=== PATIENT | male | born 1960 | race Caucasian/White ===

== ENCOUNTER 2016-09-07 02:05 | Inpatient (IN) | payer OTHER ==
[~2016-09-07] VITALS: Ht 180.3 cm; Wt 104.3 kg
[~2016-09-07 02:05] MED LIST: AZITHROMYCIN250 M1 PO; IBUPROFEN800 M1 PO; MEPRON750 MG/51 PO; PERCOCET 5-3251 EACH PO; TRAZODONE HCL100 M1 PO; VALIUM5 M2 PO; VIBRAMYCIN100 MG PO; ZOFRAN ODT4 M1 PO
--- NOTE | 2016-09-07 12:14 | Admission Core Measures ---
Admission Meds I reviewed the following Meds: Current Medications Sig/Dorita Start time Last Medication Dose Stop Time Status Admin Alvimopan 12 MG ONCE 09/07 0000 NR (Entereg) 09/07 2569 Acute Coronary Syndrome Inclusion Criteria ACS Diagnosis No Inpatient Core Measures LDL Reminder: If No, please order W/I first 24hr of stay Congestive Heart Failure Inclusion Criteria CHF Diagnosis No Cerebrovascular accident Inclusion Criteria CVA/TIA Diagnosis No Inpatient Core Measures Bedside Swallow Eval Reminder: If BSE failed, place ST order Antithrombotic Reminder: Order Antithrombotic Medication by end of day 2 Antithrombotic Reminder: Document Reason Antithrombotic Not ordered by end of day 2 AFIB/Flutter Reminder: If Present, add to problem list AFIB/Flutter Reminder: Order Anticoag Medication for pts with AFIB/Flutter Atherosclerosis Reminder: If Present, add to problem list LDL Reminder: If No, please order W/I first 24hr of stay PT Order Reminder: If No, please order Venous thromboembolism Inpatient Core Measures VTE Risk Factors: Age > 40, Surgery VTE Prophylaxis Ordered Inpt Mechanical ([facility]S) [facility] d/t No contraindications No VTE Pharm Prophylaxis d/t Active bleeding, Surgical contraindication Inclusion Criteria - Per Current guidelines, there needs to be overlap - treatment for the first 5 days of Warfarin therapy. - Parenteral Anticoagulation (IV or SC) needs to be - given along with Warfarin therapy. VTE Diagnosis No VTE Type NONE VTE Confirmed by (Test) NONE Problem List As ranked by this Provider includes Assessment & Plan 1. Status post laparoscopic colectomy HOME MEDS Home Med List Oxycodone HCl/Acetaminophen (Percocet 5-325 MG Tablet) 5 MG-325 MG TABLET 1 TAB PO PRN PAIN (Reported) Trazodone HCl 100 MG TABLET 1 TAB PO QHS SLEEP (Reported)
--- NOTE | 2016-09-07 12:58 | Operative Report ---
Operative/Inv Procedure Report Surgery Date: 09/07/16 Name of Procedure: Laparoscopic right colectomy Pre-Operative Diagnosis: Adenocarcinoma of the colon at the hepatic flexure Post-Operative Diagnosis: Adenocarcinoma of the colon at the hepatic flexure Estimated Blood Loss: 300 ml Surgeon/Sports Umpire: ABIGAIL MARTINEZ JR, DO Anesthesia: general endotracheal tube Monitors: Per routine Drains: None Specimens: Right colon with hepatic flexure Complications: None Condition: Good Operative Indication: This is a 55-year-old gentleman who was found to have a mass at the hepatic flexure on a screening colonoscopy Biopsies from the colonoscopy revealed the mass to be an adenocarcinoma, preoperative workup failed to demonstrate evidence of metastasis Operative/Procedure Note Note: Patient was taken into the OR. He was placed in supine position on the operating room table. He underwent induction of general anesthesia, placement of endotracheal tube, and placement of Cordero catheter. A bilateral tap block was performed by the anesthesia department. His left arm was tucked and then the abdomen was prepped and draped in usual fashion. We gained access to the abdominal cavity using Croft technique. Croft port was placed in the supraumbilical position. Once this port was placed 3 additional 5 mm ports were placed under direct visualization of the laparoscope: Suprapubic, left lower quadrant and left upper quadrant. The peritoneal cavity and liver were inspected and appeared normal. The patient was placed in slight Trendelenburg left side down and the greater omentum was swept over the transverse colon. Small bowel was swept away from the base of the mesentery and then the tattoo was observed at the hepatic flexure. A medial to lateral dissection was then performed. The cecum was grasped and elevated towards the anterior abdominal wall tenting the mesentery. I could see the ileocolic vessels as they passed over the duodenum. I incised the peritoneum just caudad to the vessels. Through this incision I bluntly created a window through which the duodenum was identified. Using blunt dissection the retroperitoneum attachments of the nasal colon to the duodenum were mobilized. At this point the vascular pedicle was well exposed. I skeletonized the vessel then individually ligated the vein and artery with the LigaSure. I continued a medial to lateral dissection sweeping the wispy retroperitoneal attachments away as I developed the plane between Gerota's fascia and the nasal colon. Once I reached the sidewall I began to take down the white line of Toldt. The appendix and cecum were pulled medially the white line of Toldt was taken down using the LigaSure. I continued to do this until I took down the hepatic flexure. The patient was then placed in reverse Trendelenburg. Some abnormal attachments between the edge of the liver and the omentum were taken down with electrocautery. The gallbladder was identified and appeared normal. The gastrocolic ligament was then divided with the LigaSure starting at the mid transverse colon and working back till I reached the hepatic flexure. Just as I finished doing this we noticed some pooling of blood in the retroperitoneum. I thoroughly inspected the retroperitoneum and after some time was able to identify the bleeding source. There was a bleeding side branch arterial from the mesentery which was controlled with LigaSure. We copiously irrigated the blood away and then also placed some Surgicel here. About 200 mL of blood were lost during this retroperitoneal exploration and we finally found and controlled bleeding. At this point the 12 mm port was lengthened to 5 cm and a wound protector was placed through. We were able to easily extract the colon including a portion of the terminal ileum through this wound protector. I chose my proximal site of transection on the terminal ileum. A blue loaded 80 mm RADHA stapler was used to divide the bowel. The intervening mesentery to the small bowel was divided using the LigaSure. I chose my distal site of transection and cleared the mesentery at the colon using the LigaSure. We made sure to be at least 5 cm from the distal edge of the tumor. Once again a blue loaded 80 mm RADHA stapler was used to divide the bowel. The specimen was removed from the table and opened on the back table. We had excellent vascular pedicle and an good distal margins on the tumor. At this point we created a tyfp-su-rdgi anastomosis. 2 small enterotomies were intentionally created by excising the corners of the staple lines. The RADHA 80 mm blue loaded stapler was chosen to create a common channel. One arm of the stapling device was placed on each limb of the bowel, the stapler was then closed and fired. We made sure to approximate the antimesenteric portions of the bowel and not the mesentery. The stapler was opened and removed and the lumen was inspected. The lumen was pink and the anastomosis appeared intact without any evidence of bleeding. The enterotomy edges were then approximated with Allis clamps and then closed with a TA 60 stapler. An anti-tension suture was placed in the crotch of the staple line with a 2-0 Vicryl suture. The bowel was reduced back into the abdominal cavity and the fascia at the extraction port was closed with running 0 PDS non- looped suture. We reinsufflated the abdomen. There was a small amount of residual irrigation and old blood. This was irrigated and aspirated away. The retroperitoneum was once again inspected for bleeding and there was no evidence of active bleeding so we decided to conclude the procedure. The 5 mm ports were removed under direct visualization of the laparoscope. The extraction incision was copiously irrigated with sterile water and then closed with skin mj. The 5 mm ports were closed with subcuticular 4-0 Vicryl and then skin glue. The abdomen was cleansed and dried and then a sterile island dressing was applied over the extraction incision. The patient tolerated the procedure with good rate good urine output and was taken to recovery area in good condition. At the end of this operational needle sponges and attention was workout for Findings: Tumor at the hepatic flexure Discharge Disposition: PACU CC: ASHLEE ALBA,AIDAN Man; YUSEF SCHROEDER MD
--- NOTE | 2016-09-07 14:34 | PN- General Surgery ---
Subjective Subjective: The patient was seen this afternoon postoperatively. He reports his pain is under adequate control and no other complaints the current time. He denies any nausea, chest pain, or difficulty breathing. Objective Vital Signs and I&Os Vital signs: Blood pressure 150/80, pulse 70, temperature 90.8, O2 saturation 96 % on 2 L via nasal cannula I's and O's: 3300 ML's in of lactated Ringer's/400 ML's out of urine via Cordero catheter/EBL 300 Physical Exam: Gen.: Alert and obvious distress Skin: Warm and dry Cardiac: S1-S2 regular Pulmonary: Bilateral breath sounds equal slightly decreased at bases Abdomen: Softly distended, appropriate incisional tenderness, bowel sounds sluggish. Port sites are clean, dry, and intact without signs of infection. Extremities: Bilateral lower extremities are warm without calf tenderness or significant edema. Assessment/Plan Assessment/Plan Assessment: 55-year-old male status post laparoscopic right colectomy. Postoperatively the patient is progressing as expected and his pain is under adequate control. Plan: Continue IV fluids as well as a clear liquid diet tonight Entereg 12 mg by mouth twice a day 2 doses of prophylactic postoperative antibiotics Continue current pain regiment with Dilaudid SAMPLE MAKER HAND and [id number] Tylenol Out of bed and ambulate Strict I's and O's GI and DVT prophylaxis Follow-up morning laboratory studies Total respiratory care for IST and when necessary nebs Resume all medications Core Measures/Miscellaneous Cordero Catheter Date In: 09/07/16 Still Needed? Yes Venous Thromboembolism VTE Risk Factors: Age > 40, Surgery VTE Contraindications: Active Bleeding VTE Prophylaxis Ordered Inpt Mechanical (ALPS/TEDS) No Pharm VTE Prophylaxis D/T: Surgical Contraindication VTE Diagnosis: No VTE Type: NONE VTE Confirmed by (Test): NONE Beta Kermit Is Beta Kermit a Home Med? No Antibiotics Is Patient on Antibiotics? Yes If Yes: prophylaxis
[2016-09-07 17:00] VITALS: BP 122/74
[2016-09-07 17:38] VITALS: BP 122/74
[2016-09-07 19:40] VITALS: BP 152/92
--- NOTE | 2016-09-07 19:42 | NUR ---
nsg note: refused iv tylenol; surgical pa aware; next shift rn notified
[2016-09-07 21:56] VITALS: BP 138/78
[2016-09-08] VITALS (7 sets, daily range): BP systolic 128–137; BP diastolic 64–86
--- NOTE | 2016-09-08 04:05 | NUR ---
LATE ENTRY FOR 09/07/16 0523 REPORTED TO SURGICAL PA Aureliano PT PASSING DARK RED BLOODY LIQUID/SOME CLOTS FROM RECTUM. VSS. WILL CONTINUE TO MONITOR.
[2016-09-08 09:16] LABS: ABSOLUTE BASOPHIL COUNT 0 /CUMM (0.0-0.2); ABSOLUTE EOSINOPHIL COUNT 0.1 /CUMM (0.0-0.7); ABSOLUTE GRANULOCYTE CT 5.3 /CUMM (1.4-6.5); ABSOLUTE LYMPH COUNT 1.3 /CUMM (1.2-3.4); ABSOLUTE MONOCYTE COUNT 0.8 /CUMM (0.10-0.60); BASOPHIL % 0.1 % (0.0-2.0); EOSINOPHIL % 1.1 % (0-5); HEMATOCRIT 33.5 % (42-52); MEAN CORPUSCULAR HGB 30.9 PG (27.0-31.0); MEAN CORPUSCULAR HGB CONC 34.8 G/DL (33.0-37.0); MEAN PLATELET VOLUME 7.7 FL (7.4-10.4); PLATELET COUNT 203 /CUMM (130-400); RBC DISTRIBUTION WIDTH 13.4 % (11.5-14.5); RED BLOOD CELL CT 3.76 /CUMM (4.70-6.10); WHITE BLOOD CELL COUNT 7.5 /CUMM (4.8-10.8)
--- NOTE | 2016-09-08 10:51 | PN- General Surgery ---
Surgical Brief Attending Note Brief Attending Note: Patient is postop day 1 from a laparoscopic right colon Had nausea and emesis overnight and passing some bloody stool per rectum AVSS Gen - NAD Abd- soft , ND, incisins CDI Pt hemodynamcally stable and Hgb is stable - possile anastomosis bleeding . repete H&H and hold anticoag OK to start clears Decrease IVF to 75 ml Pt seen with PA preset and plan discussed with LOVE
[2016-09-08 20:51] LABS: ABSOLUTE BASOPHIL COUNT 0 /CUMM (0.0-0.2); ABSOLUTE EOSINOPHIL COUNT 0.2 /CUMM (0.0-0.7); ABSOLUTE GRANULOCYTE CT 3.8 /CUMM (1.4-6.5); ABSOLUTE LYMPH COUNT 1.5 /CUMM (1.2-3.4); ABSOLUTE MONOCYTE COUNT 0.6 /CUMM (0.10-0.60); BASOPHIL % 0.3 % (0.0-2.0); EOSINOPHIL % 2.5 % (0-5); GRANULOCYTE % 62.1 % (42.2-75.2); HEMATOCRIT 30.5 % (42-52); MEAN CORPUSCULAR HGB 30.5 PG (27.0-31.0); MEAN CORPUSCULAR HGB CONC 34.2 G/DL (33.0-37.0); MEAN CORPUSCULAR VOLUME 89.1 FL (80.0-94.0); MEAN PLATELET VOLUME 7.2 FL (7.4-10.4); PLATELET COUNT 176 /CUMM (130-400); RBC DISTRIBUTION WIDTH 13.6 % (11.5-14.5); RED BLOOD CELL CT 3.43 /CUMM (4.70-6.10); WHITE BLOOD CELL COUNT 6.2 /CUMM (4.8-10.8)
[2016-09-08] MEDS ORDERED: PERCOCET 5-3251 EACH PO (23:19)
--- NOTE | 2016-09-08 23:19 | Surgical Discharge Summary ---
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 Home Who Do You Live With? Spouse Services at Home: None What is Your Primary Language? Lao Review of Systems: See H&P Hospital Course Course Attending Physician: ABIGAIL ROMERO JR, DO Primary Care Physician: ASHLEE ALBA,[facility] Course: Patient is a 55-year-old male with a history of COPD and asthma who was found to have a massive hepatic flexure on a screening colonoscopy. Biopsies from the colonoscopy revealed the mass to be an adenocarcinoma further preoperative workup failed to demonstrate evidence of metastasis. On 09/07/2016, patient presented to [facility] for scheduled laparoscopic right hemicolectomy. Patient tolerated the procedure well and was transferred to the general medical floor in stable condition. He was given Entereg and started on clear liquid diet immediately postop. He had one episode of emesis on postoperative day #0, which resolved. He also had some bloody bowel movements on postoperative day #0 , which also improved. Blood counts remained stable. As bowel function improved, diet was slowly advanced and patient was cleared for discharge. Complications: None Allergies: Coded Allergies: Penicillins (Intermediate, HIVES, RASH 04/18/16) Disposition Summary Disposition Principal Diagnosis: Adenocarcinoma of the colon Additional Diagnosis: History of asthma and COPD. Discharge Disposition: home or self care Discharge Instructions General Discharge Information Code Status: Full Code Patient's Diet: Giller as tolerated Patient's Activity: No strenuous activity or heavy lifting, pushing, or pulling. No driving while using narcotics. Follow-Up Instructions/Appts: Dry dressing change once daily to incision site. Follow-up with Dr. Romero at 10-14 days postop for staple removal. Please report any of the following signs and symptoms to Travis: Fever greater than 101, increasing abdominal pain, severe constipation or diarrhea, drainage from the wound, chest pain or shortness of breath. Medications at Discharge Discharge Medications: Continue taking these medications: Trazodone HCl (Trazodone HCl) 100 MG TABLET 1 Tablet ORAL TAKE AT BEDTIME Comments: Last Taken: 09/09/16 Time: 9:00 PM The following medications have been changed: Old: Oxycodone HCl/Acetaminophen (Percocet 5-325 MG Tablet) 5 MG-325 MG TABLET 1 Tablet ORAL as needed for PAIN New: Oxycodone HCl/Acetaminophen (Percocet 5-325 MG Tablet) 5 MG-325 MG TABLET 1-2 Tablet ORAL EVERY 4 HOURS NEEDED as needed for PAIN Qty = 30 Comments: Last Taken: 09/10/16 Time: 10:00 AM
--- NOTE | 2016-09-08 23:24 | Patient Discharge Instructions ---
Discharge Instructions General Discharge Information You were seen/treated for: Adenocarcinoma of the colon You had these procedures: Laparoscopic right hemicolectomy Watch for these problems: Fever greater than 101, increased abdominal pain, frequent bloody bowel movements, severe constipation or diarrhea, chest pain or shortness of breath. Call Surgeon to remove: Mclean (postop day 10-14) Do not soak the wound: Yes No bath, but you may shower: Yes Other wound care: May shower as desired. You may remove Band-Aids, but leave Steri-Strips in place if you have them. Dry dressing change to a larger incision site once daily. Diet Continue normal diet: Yes Activity Full Activity/No Limits: No Activity Self Limited: Yes Pounds, do NOT lift more than: 5 Other activity limits: No strenuous activity or heavy lifting, pushing, or pulling. No driving while using narcotics. Acute Coronary Syndrome Inclusion Criteria At DC or during hospital stay patient has or had the following: ACS DIAGNOSIS No Discharge Core Measures Meds if any: Prescribed or Continued at Discharge Meds if any: NOT Prescribed or Continued at Discharge Congestive Heart Failure Inclusion Criteria At DC or during hospital stay patient has or had the following: CHF DIAGNOSIS No Discharge Core Measures Meds if any: Prescribed or Continued at Discharge Meds if any: NOT Prescribed or Continued at Discharge Cerebrovascular accident Inclusion Criteria At DC or during hospital stay patient has or had the following: CVA/TIA Diagnosis No Discharge Core Measures Meds if any: Prescribed or Continued at Discharge Meds if any: NOT Prescribed or Continued at Discharge Venous thromboembolism Inclusion Criteria VTE Diagnosis No VTE Type NONE VTE Confirmed by (Test) NONE Discharge Core Measures - Per Current guidelines, there needs to be overlap - treatment for the first 5 days of Warfarin therapy. - If discharged on Warfarin prior to 5 days of - overlap therapy, the patient will need to be - assessed for post discharge needs including - *Post discharge parental anticoagulation - *Warfarin and/or parental anticoagulation education - *Follow up date to check INR post discharge At least 5 days overlap therapy as Inpatient No Meds if any: Prescribed or Continued at Discharge Note: Overlap Therapy is Warfarin and Anticoagulant Meds if any: NOT Prescribed or Continued at Discharge
[2016-09-09 04:18] VITALS: BP 140/76
[2016-09-09 08:05] VITALS: BP 134/38
--- NOTE | 2016-09-09 08:45 | PN- General Surgery ---
See Addendum Subjective Subjective: NAEO. Patient without new c/o. Pain at incision sites which is controlled with MATTRESS INSPECTOR. Tolerating clear liquid diet without n/v. States he passed flatus once or twice. Has had several bloody bowel movements since yesterday. Denies dizziness, lightheadedness, feeling like he's going to pass out. Denies CP/SOB. OOB and ambulating. Objective Vital Signs and I&Os Vital Signs Date Time Temp Pulse Resp B/P Pulse O2 O2 Flow FiO2 Ox Delivery Rate 09/09 0805 98.5 83 20 134/38 95 09/09 0418 98.7 80 20 140/76 94 09/08 2351 99.2 84 20 130/74 93 09/08 1601 98.7 82 21 128/84 93 Room Air 09/08 1200 98.3 80 20 137/64 96 Room Air Intake & Output 09/09 1600 09/09 0800 09/09 0000 09/08 1600 09/08 0800 09/08 0000 Intake Total 731 981 2433 1000 2010 Output Total 425 600 021 422 0044 Balance 295 180 465 550 860 Intake, IV 600 877 858 8744 1050 Intake, Oral 120 480 520 0 960 Number 3 0 Bowel Movements Output, 0 750 Emesis Output, Urine 425 600 850 450 400 Physical Exam: General: NAD, comfortable, A&Ox3 Chest: CTAB. RRR. Abdomen: soft, mildly distended. Appropriately TTP. Incisions intact. Midline incision intact with mj. No erythema, swelling, purulent drainage, signs of infection. +Bowel sounds x4 quadrants Ext: No calve swelling/TTP, neurovascularly intact bilateral lower extremities Current Medications: Current Medications Sig/Dorita Start time Last Medication Dose Route Stop Time Status Admin Acetaminophen 1,000 MG Q6H 09/07 2100 DC 09/08 IV 09/08 1501 1437 Alvimopan 12 MG BID 09/07 2200 AC 09/08 PO 2219 Heparin Sodium 5,000 UNIT Q8 09/08 0600 DC 09/08 (Porcine) SC 0524 Hydromorphone HCl 0.5 MG Q3P PRN 09/09 0800 AC IV Hydromorphone HCl 50 MG Q24H PRN 09/07 1445 DC Sodium Chloride 45 ML IV Ondansetron HCl 4 MG Q6P PRN 09/07 1445 AC 09/07 IV 2119 Oxycodone/ 1 TAB Q4P PRN 09/09 0800 AC Acetaminophen PO Oxycodone/ 2 TAB Q4P PRN 09/09 0800 AC Acetaminophen PO Pantoprazole Sodium 40 MG DAILY 09/08 1000 AC 09/08 IV 0902 Potassium Chloride 20 MEQ .[id number] 09/07 1445 DC 09/09 Dextrose/Sodium 1,000 ML IV 0538 Chloride Promethazine HCl 25 MG Q4P PRN 09/07 221 AC 09/07 IV 09/14 2213 224 Trazodone HCl 50 MG .STK-MED ONE 09/08 2117 DC PO 09/08 2118 Trazodone HCl 100 MG AT BEDTIME 09/07 2199 AC 09/08 PO 222 Results Last 48 Hours of Labs: Laboratory Tests 09/0910 2027 Chemistry Sodium Pending Potassium Pending Chloride Pending Carbon Dioxide Pending Anion Gap Pending BUN Pending Creatinine Pending BUN/Creatinine Ratio Pending Magnesium Pending Hematology CBC w Diff Pending NO MAN DIFF REQ WBC (4.8 - 10.8 /CUMM) Pending 6.2 RBC (4.70 - 6.10 /CUMM) Pending 3.43 L Hgb (14.0 - 18.0 G/DL) Pending 10.5 L Hct (42 - 52 %) Pending 30.5 L MCV (80.0 - 94.0 FL) Pending 89.1 MCH (27.0 - 31.0 PG) Pending 30.5 RDW (11.5 - 14.5 %) Pending 13.6 Plt Count (130 - 400 /CUMM) Pending 176 MPV (7.4 - 10.4 FL) Pending 7.2 L Gran % (42.2 - 75.2 %) 62.1 Lymphocytes % (20.5 - 51.1 %) 24.9 Monocytes % (1.7 - 9.3 %) 10.2 H Eosinophils % (0 - 5 %) 2.5 Basophils % (0.0 - 2.0 %) 0.3 Absolute Granulocytes (1.4 - 6.5 /CUMM) 3.8 Absolute Lymphocytes (1.2 - 3.4 /CUMM) 1.5 Absolute Monocytes (0.10 - 0.60 /CUMM) 0.6 Absolute Eosinophils (0.0 - 0.7 /CUMM) 0.2 Absolute Basophils (0.0 - 0.2 /CUMM) 0 PUBS MCHC (33.0 - 37.0 G/DL) Pending 34.2 01/ 0730 Chemistry Sodium (137 - 145 mmol/L) 138 Potassium (3.5 - 5.1 mmol/L) 4.0 Chloride (98 - 107 mmol/L) 103 Carbon Dioxide (22 - 30 mmol/L) 27 Anion Gap (5 - 16) 8 BUN (9 - 20 mg/dL) 13 Creatinine (0.7 - 1.2 mg/dL) 0.9 Estimated GFR (>60 ml/min) > 60 BUN/Creatinine Ratio (7 - 25 %) 14.4 Hematology CBC w Diff NO MAN DIFF REQ WBC (4.8 - 10.8 /CUMM) 7.5 RBC (4.70 - 6.10 /CUMM) 3.76 L Hgb (14.0 - 18.0 G/DL) 11.6 L Hct (42 - 52 %) 33.5 L MCV (80.0 - 94.0 FL) 89.0 MCH (27.0 - 31.0 PG) 30.9 RDW (11.5 - 14.5 %) 13.4 Plt Count (130 - 400 /CUMM) 203 MPV (7.4 - 10.4 FL) 7.7 Gran % (42.2 - 75.2 %) 71.0 Lymphocytes % (20.5 - 51.1 %) 17.3 L Monocytes % (1.7 - 9.3 %) 10.5 H Eosinophils % (0 - 5 %) 1.1 Basophils % (0.0 - 2.0 %) 0.1 Absolute Granulocytes (1.4 - 6.5 /CUMM) 5.3 Absolute Lymphocytes (1.2 - 3.4 /CUMM) 1.3 Absolute Monocytes (0.10 - 0.60 /CUMM) 0.8 H Absolute Eosinophils (0.0 - 0.7 /CUMM) 0.1 Absolute Basophils (0.0 - 0.2 /CUMM) 0 PUBS MCHC (33.0 - 37.0 G/DL) 34.8 Assessment/Plan Assessment/Plan 55yo M POD#2 s/p laparoscopic colectomy. AVSS, patient progressing. - DC MATTRESS INSPECTOR, start PO pain meds - PRN zofran - continue entereg until patient had large formed bm - DC IVF - abx complete - f/u a.m. labs - I/O's - SLIV - ?restart sc heparin - ALPS - will d/w attending Core Measures/Miscellaneous Cordero Catheter Date In: 09/07/16 Venous Thromboembolism VTE Risk Factors: Age > 40, Surgery VTE Contraindications: Active Bleeding VTE Prophylaxis Ordered Inpt Mechanical (ALPS/TEDS) No Pharm VTE Prophylaxis D/T: Surgical Contraindication VTE Diagnosis: No VTE Type: NONE VTE Confirmed by (Test): NONE Beta Kermit Is Beta Kermit a Home Med? No Antibiotics Is Patient on Antibiotics? No
[2016-09-09 10:24] LABS: ABSOLUTE BASOPHIL COUNT 0 /CUMM (0.0-0.2); ABSOLUTE EOSINOPHIL COUNT 0.1 /CUMM (0.0-0.7); ABSOLUTE MONOCYTE COUNT 0.5 /CUMM (0.10-0.60); BASOPHIL % 0.4 % (0.0-2.0); EOSINOPHIL % 2.2 % (0-5); HEMATOCRIT 31.7 % (42-52); MEAN CORPUSCULAR HGB 30.7 PG (27.0-31.0); MEAN CORPUSCULAR HGB CONC 34.1 G/DL (33.0-37.0); MEAN CORPUSCULAR VOLUME 89.9 FL (80.0-94.0); MEAN PLATELET VOLUME 7.6 FL (7.4-10.4); PLATELET COUNT 172 /CUMM (130-400); RED BLOOD CELL CT 3.53 /CUMM (4.70-6.10); WHITE BLOOD CELL COUNT 5.8 /CUMM (4.8-10.8)
[2016-09-09 12:00] VITALS: BP 128/74
[2016-09-09 15:49] VITALS: BP 134/72
[2016-09-09 23:52] VITALS: BP 126/74
[2016-09-10 03:15] VITALS: BP 130/80
--- NOTE | 2016-09-10 07:02 | PN- General Surgery ---
Subjective Subjective: The patient was seen this morning postoperatively day #3. He reports that his pain is under adequate control and is tolerating a regular diet without nausea. He continues to have loose bowel movements which are now dark in color as opposed to grossly bloody the day prior. He has no other complaints at the current time and denies any chest pain or difficulty breathing. Objective Vital Signs and I&Os Vital Signs Date Time Temp Pulse Resp B/P Pulse O2 O2 Flow FiO2 Ox Delivery Rate 09/10 0315 98.4 78 18 130/80 94 Room Air 09/09 2352 98.3 72 19 126/74 94 Room Air 09/09 1549 98.2 80 21 134/72 94 Room Air 09/09 1200 98.0 84 20 128/74 92 Room Air 09/09 0805 98.5 83 20 134/38 95 Intake & Output 09/10 0800 09/10 0000 09/09 1600 09/09 0800 09/09 0000 09/08 1600 Intake Total 480 670 165 237 3404 Output Total 425 600 850 Balance 480 670 295 180 465 Intake, IV 150 600 300 795 Intake, Oral 480 520 120 480 520 Number 3 3 Bowel Movements Output, Urine 425 600 850 Physical Exam: Gen.: Alert and obvious distress Skin: Warm and dry Abdomen: Softly distended, appropriate incisional tenderness, bowel sounds positive. Port sites are clean, dry, and intact with surgical clips in place. Extremities: Bilateral lower extremities are warm without calf tenderness or significant edema. Assessment/Plan Assessment/Plan Assessment: 55-year-old male status post laparoscopic right colectomy postoperative day #3. The patient is progressing as expected, his pain is under adequate control, and he is tolerating a diet without nausea. His bloody bowel movements have improved. Plan: Follow-up morning laboratory studies Continue regular diet Out of bed and ambulate GI and DVT prophylaxis with Alps and PPI only no heparin due to bleeding DC Entereg DC home later today if H&H is stable. Core Measures/Miscellaneous Cordero Catheter Date In: 09/07/16 Venous Thromboembolism VTE Risk Factors: Age > 40, Surgery VTE Contraindications: Active Bleeding VTE Prophylaxis Ordered Inpt Mechanical (ALPS/TEDS) No Pharm VTE Prophylaxis D/T: Surgical Contraindication VTE Diagnosis: No VTE Type: NONE VTE Confirmed by (Test): NONE Beta Kermit Is Beta Kermit a Home Med? No Antibiotics Is Patient on Antibiotics? No
[2016-09-10 08:09] VITALS: BP 140/68
[2016-09-10 08:58] LABS: ABSOLUTE BASOPHIL COUNT 0 /CUMM (0.0-0.2); ABSOLUTE EOSINOPHIL COUNT 0.2 /CUMM (0.0-0.7); ABSOLUTE GRANULOCYTE CT 4.7 /CUMM (1.4-6.5); ABSOLUTE LYMPH COUNT 0.7 /CUMM (1.2-3.4); ABSOLUTE MONOCYTE COUNT 0.4 /CUMM (0.10-0.60); BASOPHIL % 0.3 % (0.0-2.0); EOSINOPHIL % 3.7 % (0-5); HEMATOCRIT 34.3 % (42-52); MEAN CORPUSCULAR HGB 30.8 PG (27.0-31.0); MEAN CORPUSCULAR HGB CONC 34.5 G/DL (33.0-37.0); MEAN CORPUSCULAR VOLUME 89.2 FL (80.0-94.0); MEAN PLATELET VOLUME 7.6 FL (7.4-10.4); PLATELET COUNT 186 /CUMM (130-400); RBC DISTRIBUTION WIDTH 13.3 % (11.5-14.5); RED BLOOD CELL CT 3.84 /CUMM (4.70-6.10); WHITE BLOOD CELL COUNT 6.1 /CUMM (4.8-10.8)
== END 2016-09-10 10:30 | DRG 331 ==
LOC: ENRESERVTM → ENRESERVDT → SDA 02:05 → 2NB 02:05 → SDA 07:00 → 2NB 13:56
PROVIDERS: Physician Assistant Surgical; ADMIT Colon & Rectal Surgery
PROC: 0DBF4ZZ Excision of Right Large Intestine, Percutaneous Endoscopic Approach (ICD-10-PCS; principal; 2016-09-07)
DX: C18.3 Malignant neoplasm of hepatic flexure (principal); F17.210 Nicotine dependence, cigarettes, uncomplicated; R91.8 Other nonspecific abnormal finding of lung field
CPT/HCPCS: 2NBP; 36415; 82436; 87086; 88309; J0131; J1100; J1170; J1580; J1644; J1885; J2405; J2550; J7042; Q2036

== ENCOUNTER → 2016-10-02 | Day surgery (SDC) | payer OTHER ==
[~2016-10-02] VITALS: Ht 180.3 cm; Wt 103.9 kg
[~2016-10-02] MED LIST changes: +ALPRAZOLAM1 M2 PO; +AVELOX400 M1 PO; +FLUOXETINE HCL20 M2; +LOPERAMIDE2 M2 PO; +PROCHLORPERAZIN10 MG PO; +VENLAFAXINE HCL50 MG
--- NOTE | 2016-10-02 14:18 | Operative Report ---
Operative/Inv Procedure Report Surgery Date: 10/02/16 Name of Procedure: Placement of left subclavian portacatheter/central venous catheter with subcutaneous port Pre-Operative Diagnosis: Colon cancer Post-Operative Diagnosis: Colon cancer Estimated Blood Loss: less than 50ml Surgeon/Standards Analyst: ABIGAIL MARTINEZ JR, DO Anesthesia: local monitored anesthesi, block Monitors: Per routine Implants: Low-profile portacatheter in left subclavian vein Specimens: None Complications: None Condition: Good Operative Indication: This is a 55-year-old gentleman has had recent laparoscopic right colectomy. Patient does not have any evidence of metastatic disease but had a positive lymph node making an stage III. He is being prepared for chemotherapy Operative/Procedure Note Note: Patient was taken to the operating room and placed in supine position on the operating table. He received IV antibiotics prior to incision. IV sedation was initiated left arm was tucked and the left chest and neck were prepped in usual fashion. Next a block was performed with 0.5% Marcaine around the needle insertion site and the proposed pocket for the port. Procedure needle was then inserted into the left subclavian vein and I was able to easily withdraw dark venous nonpulsatile blood. Then using Seldinger technique a guidewire was passed through the needle. Fluoroscopy was used to confirm that the wire was indeed in the subclavian vein with its tip of the wire in the superior vena cava. Next I created a port in the left chest in the upper outer quadrant of the pelvic. The port was taken down to the pectoralis fascia. Once pocket was large enough for the port the cath of the port was cut to the appropriate size. I cut the length of the catheter to 22 cm. The tip of the catheter was brought from the pocket incision to the needle incision. Then with constant fluoroscopy the dilator was passed over the wire. The trocar and wire were removed from the dilator sheath. The catheter tip was passed into the dilator sheath. This sheath was then fractured and then carefully peeled away leaving the catheter in place. The catheter was then flushed. The tip of the catheter appeared to be in the superior vena cava. 5 mL of dilute contrast were used to confirm that the tip was in the vena cava and not still in the subclavian vein. The catheter was then flushed with heparinized saline. I inspected the pocket for bleeding there was none. The pocket was copiously irrigated with sterile saline. The incision was then closed in 2 layers. First a deep dermal interrupted 3-0 Vicryl layer. Then a subcutaneous 4-0 Monocryl layer. The skin was then cleansed and dried. Mastisol Steri-Strips were applied. Patient tolerated the procedure well. Was taken to recovery area in good condition. Epididymis operational needle sponges and measurements were accounted for. Findings: Tip of catheter in superior vena cava
--- NOTE | 2016-10-02 15:08 | RADIOLOGY REPORT ---
EXAMINATION: XR PORTABLE CHEST CLINICAL INFORMATION: Postop. Rule out pneumothorax. Status post catheter placement. COMPARISON: CT dated 08/18/2016 TECHNIQUE: AP portable upright view of the chest FINDINGS: Left subclavian Port-A-Cath terminates in the SVC. Lungs are clear. No consolidation, pneumothorax, or pleural effusion. Cardiac and mediastinal contours are normal. Pulmonary vasculature is unremarkable. Osseous structures are unremarkable. IMPRESSION: Port-A-Cath terminates in the SVC. No pneumothorax.
--- NOTE | 2016-10-03 17:43 | RADIOLOGY REPORT ---
EXAMINATION:\H\ \N\XR CHEST CLINICAL INFORMATION: Port-A-Cath placement by Dr. Romero COMPARISON: 04/18/2016 TECHNIQUE: 2 AP spot images of the chest were submitted as part of the Port-A-Cath placement by Dr. Romero. 0.4 minutes of fluoroscopy time. The patient dose is 0.165 mGy-m2. FINDINGS/IMPRESSION: Spot images demonstrate a guidewire terminating at the cavoatrial junction. The Port-A-Cath tip is seen in the region of the SVC on the subsequent image.
== END ==
LOC: STS 02:03
DX: C18.9 Malignant neoplasm of colon, unspecified (principal)
CPT/HCPCS: 1263; C1788; J1644; J2250; Q9967

== ENCOUNTER 2016-10-16 16:14 | Emergency (ER) | payer OTHER ==
[~2016-10-16] VITALS: Ht 180.3 cm; Wt 104.3 kg
[~2016-10-16 16:14] MED LIST changes: -ALPRAZOLAM1 M2 PO; -AVELOX400 M1 PO; -FLUOXETINE HCL20 M2; -LOPERAMIDE2 M2 PO; -PROCHLORPERAZIN10 MG PO; -VENLAFAXINE HCL50 MG
[2016-10-16] MEDS ORDERED: PROCHLORPERAZIN10 MG PO (16:52)
[2016-10-16] MEDS ORDERED: ALPRAZOLAM1 M2 PO (16:52)
--- NOTE | 2016-10-16 17:05 | ED GENERAL ADULT ---
History of Present Illness General Chief Complaint: Fever Stated Complaint: FEVER S/P CHEMO Source: patient, family, old records Exam Limitations: no limitations Vital Signs & Intake/Output Vital Signs & Intake/Output Vital Signs Date Time Temp Pulse Resp B/P Pulse O2 O2 Flow FiO2 Ox Delivery Rate 10/169 93 18 130/80 93 Room Air 10/166 100.1 10/16 2009 103.1 10/16 1956 102.8 10/16 1927 103.1 10/16 1907 103.1 102 20 137/72 97 Room Air 10/16 1832 102.5 10/16 1745 Room Air 10/16 1636 102.5 118 20 141/80 94 Room Air Allergies Coded Allergies: Penicillins (Intermediate, HIVES, RASH 10/16/16) Reconcile Medications Alprazolam 1 MG TABLET 1 TAB PO TID PRN ANXIETY (Reported) Fluoxetine HCl (Unknown Strength) CAPSULE (Unknown Dose) UNKNOWN (Reported) Loperamide HCl (Loperamide) (Unknown Strength) CAPSULE (Unknown Dose) UNKNOWN (Reported) Oxycodone HCl/Acetaminophen (Percocet 5-325 MG Tablet) 5 MG-325 MG TABLET 1 TAB PO Q6H PRN PAIN Prochlorperazine Maleate 10 MG TABLET 1 TAB PO Q6 PRN N/V (Reported) Trazodone HCl 100 MG TABLET 1 TAB PO QHS SLEEP (Reported) Venlafaxine HCl (Unknown Strength) TABLET (Unknown Dose) UNKNOWN (Reported) Triage Note: TRIAGE: PT TO ER WITH C/C FEVER AND GENERALIZED BODY PAIN SINCE LAST NIGHT. HX OF COLORECTAL CANCER, HAD RESECTION SX 09/07. HAD 1ST CHEMO YESTERDAY, STATES HE HAS PUMP GOING WITH THE CHEMO MEDICATION STILL INFUSING AND IS SUPPOSED TO BE REMOVED TOMORROW. HAS PORT TO L CHEST WALL. SEES DR PETIT OUT OF [place]. TEMP 102.5 AT TRIAGE. 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 PT UNSURE IF HE IS ALLOWED TO TAKE MOTRIN. Triage Nurses Notes Reviewed? yes HPI: Patient is a 55-year-old male presents complaining of fevers status post chemotherapy. Patient had his first treatment of chemotherapy yesterday for colon cancer. Patient reports fever onset yesterday with diffuse myalgias and generalized weakness. Fever between 102 and 103F. Patient took Tylenol, last dose was at 2 PM today. Patient called his oncologist and was referred to the emergency department for further evaluation. Patient reports mild cough. Decreased urination and bowel movements secondary to decreased oral intake. Patient saw his colorectal surgeon this morning, had his abdomen and his port evaluated. Patient denies dyspnea, vomiting, diarrhea, acute rashes (ASMANTA CHINCHILLA) Past History Travel History Traveled to [place] past 21 day No Medical History Any Pertinent Medical History? 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 No (SAMANTA CHINCHILLA) Review of Systems Review of Systems Constitutional: Reports: chills, fever, malaise, weakness. EENTM: Reports: no symptoms. Respiratory: Denies: cough, short of breath. Cardiovascular: Denies: chest pain. GI: Denies: abdominal pain, nausea, vomiting. Genitourinary: Reports: no symptoms. Musculoskeletal: Reports: muscle pain. Skin: Denies: rash. Neurological/Psychological: Reports: headache. Hematologic/Endocrine: Reports: no symptoms. Immunologic/Allergic: Reports: no symptoms. (SAMANTA CHINCHILLA) Physical Exam Physical Exam General Appearance: alert, awake Head: atraumatic, normal appearance Eyes: Bilateral: normal appearance, PERRL, EOMI. Ears, Nose, Throat: normal pharynx, normal ENT inspection, hearing grossly normal Neck: normal inspection, supple, full range of motion Respiratory: normal breath sounds, chest non-tender, no respiratory distress, lungs clear Cardiovascular: regular rate/rhythm Gastrointestinal: soft, non-tender Back: normal inspection, normal range of motion Extremities: normal inspection, normal capillary refill, normal range of motion, no edema Neurologic/Psych: awake, alert, oriented x 3 Skin: intact, normal color, diaphoresis Lymphatic: no anterior cervical ginny Core Measures ACS in differential dx? No CVA/TIA Diagnosis: No Severe Sepsis Present: No Septic Shock Present: No (ALICIA ALEMAN,SAMANTA) Progress Differential Diagnoses I considered the following diagnoses in my evaluation of the patient: Sepsis, bacteremia, neutropenia, pneumonia, urinary tract infection, intra-abdominal infection, influenza, chemotherapy medication reaction Plan of Care: Orders Procedure Date/time Status RAPID VIRAL INFLUENZA A 10/16 1718 Complete BLOOD CULTURE 10/16 1652 Active URINALYSIS 10/16 1652 Complete LACTIC ACID 10/16 1652 Complete COMPREHENSIVE METABOLIC PANEL 10/16 1652 Complete CBC WITHOUT DIFFERENTIAL 10/16 1652 Complete Laboratory Tests 10/16/16 2020: Urinalysis LIGHT H, Urine Color YEL, Urine Clarity HAZY H, Urine pH 6.0, Ur Specific [place] >= 1.030, Urine Protein TRACE H, Urine Ketones NEG, Urine Nitrite NEG, Urine Bilirubin NEG, Urine Urobilinogen 0.2, Ur Leukocyte Esterase NEG, Ur Microscopic SEDIMENT EXAMINED, Urine WBC RARE, Urine Hemoglobin SMALL H , Urine Glucose NEG 10/16/161952: Lactic Acid Cancelled 10/16/16 1750: Anion Gap 11, Estimated GFR > 60, BUN/Creatinine Ratio 15.6, Glucose 106 H, Lactic Acid 1.5, Calcium 9.0, Total Bilirubin 0.5, AST 45, ALT 56, Alkaline Phosphatase 50, Total Protein 6.9, Albumin 4.2, Globulin 2.7, Albumin/Globulin Ratio 1.6, CBC w Diff NO MAN DIFF REQ, RBC 4.59 L, MCV 84.7, MCH 29.0, RDW 13.7 , MPV 7.3 L, Gran % 86.5 H, Lymphocytes % 5.3 L, Monocytes % 4.3, Eosinophils % 3.7, Basophils % 0.2, Absolute Granulocytes 4.1, Absolute Lymphocytes 0.3 L, Absolute Monocytes 0.2, Absolute Eosinophils 0.2, Absolute Basophils 0, PUBS MCHC 34.2 Microbiology 10/16 1905 NASOPHARYN: Influenza Virus A & B Rapid Smear - COMP 10/16 1749 BLOOD: Blood Culture - RECD 10/16 1739 BLOOD: Blood Culture - RECD 10/16/2016 6:55:53 PM: Discussed with Dr. Knight: If clinically looks well then can discharge home. Results discussed with patient. Patient has an appointment tomorrow morning with his oncologist. Feeling improvement with IV fluids, morphine and tylenol. Awaiting flu swab and urinalysis. 10/16/2016 9:07:21 PM: Discussed with and seen by Dr. Samaniego. Patient reevaluated fever of 101F, patient diaphoretic. Discussed disposition with patient. We will continue to hydrate patient and monitor. Patient has an appointment tomorrow morning with his oncologist. The patient remains nontoxic appearing then we'll have patient follow-up with oncologist outpatient tomorrow. The patient's clinical condition deteriorates then will start broad-spectrum antibiotics and admit. 10/16/2016 11 PM: Patient's fever improved, patient is comfortable with discharge and following up tomorrow morning with his oncologist. (SAMANTA CHINCHILLA) Diagnostic Imaging: Viewed by Me: Radiology Read. Discussed w/RAD: Radiology Read. Radiology Impression: PATIENT: SAMANTA GALICAI PRESENT AGE: 55 PATIENT ACCOUNT NO: [id number] : 56 LOCATION: [facility] ORDERING PHYSICIAN: SAMANTA ALEMAN SERVICE DATE: 10/16/16 EXAM TYPE: RAD - XRY-CHEST XRAY, PA AND LATERAL EXAMINATION: XR CHEST CLINICAL INFORMATION: Recent chemotherapy. Fevers and mild cough. COMPARISON: 10/02/2016 TECHNIQUE: 2 views of the chest were obtained. FINDINGS: Left chest wall port again noted terminating over the mid SVC. The lungs are well expanded. There is no focal consolidation, edema, or effusion. No pneumothorax. The cardiomediastinal silhouette is within normal limits. No acute osseous abnormality. Mild degenerative changes in the spine. IMPRESSION: No acute pulmonary findings DICTATED BY: VICENTE WALKER MD DATE/TIME DICTATED:1739 DIRECTOR OF PLACEMENT:CARLOTA DATE/TIME TRANSCRIBED:10/16/161739 CONFIDENTIAL, DO NOT COPY WITHOUT APPROPRIATE AUTHORIZATION. <Electronically signed in Other Vendor System> SIGNED BY: VICENTE WALKER MD 10/16/161744 Initial ED EKG: none (SAMANTA CHINCHILLA) Departure Departure Time of Disposition: 2255 Disposition: HOME OR SELF CARE Condition: Stable Clinical Impression Primary Impression: Fever Qualifiers: Fever type: unspecified Qualified Code: R50.9 - Fever, unspecified Referrals: ASHLEE ALBA,AIDAN Man (PCP/Family) Additional Instructions: Follow-up with your oncologist at 11 AM tomorrow morning as previously scheduled. Departure Forms: Customer Survey General Discharge Information Prescriptions: Current Visit Scripts Oxycodone HCl/Acetaminophen (Percocet 5-325 MG Tablet) 1 TAB PO Q6H PRN PAIN #10 TAB (SAMANTA CHINCHILLA) PA/RENAL NURSE Co-Sign Statement Statement: ED Attending supervision documentation- [] I saw and evaluated the patient. I have also reviewed all the pertinent lab results and diagnostic results. I agree with the findings and the plan of care as documented in the PA's/RENAL NURSE's documentation. [X] I have reviewed the ED Record and agree with the PA's/RENAL NURSE's documentation. [] Additions or exceptions (if any) to the PAs/RENAL NURSE's note and plan are summarized below: [] (MELODIE ALBA,AMRIT Metcalf) Critical Care Note Critical Care Note Critical Care Time: non-applicable (SAMANTA CHINCHILLA)
[2016-10-16] MEDS ORDERED: FLUOXETINE HCL20 M2 (17:06)
[2016-10-16] MEDS ORDERED: LOPERAMIDE2 M2 PO (17:06)
[2016-10-16] MEDS ORDERED: VENLAFAXINE HCL50 MG (17:07)
--- NOTE | 2016-10-16 17:45 | RADIOLOGY REPORT ---
EXAMINATION: XR CHEST CLINICAL INFORMATION: Recent chemotherapy. Fevers and mild cough. COMPARISON: 10/02/2016 TECHNIQUE: 2 views of the chest were obtained. FINDINGS: Left chest wall port again noted terminating over the mid SVC. The lungs are well expanded. There is no focal consolidation, edema, or effusion. No pneumothorax. The cardiomediastinal silhouette is within normal limits. No acute osseous abnormality. Mild degenerative changes in the spine. IMPRESSION: No acute pulmonary findings
[2016-10-16 18:11] LABS: ABSOLUTE BASOPHIL COUNT 0 /CUMM (0.0-0.2); ABSOLUTE EOSINOPHIL COUNT 0.2 /CUMM (0.0-0.7); ABSOLUTE GRANULOCYTE CT 4.1 /CUMM (1.4-6.5); ABSOLUTE LYMPH COUNT 0.3 /CUMM (1.2-3.4); ABSOLUTE MONOCYTE COUNT 0.2 /CUMM (0.10-0.60); BASOPHIL % 0.2 % (0.0-2.0); EOSINOPHIL % 3.7 % (0-5); HEMATOCRIT 38.9 % (42-52); MEAN CORPUSCULAR HGB CONC 34.2 G/DL (33.0-37.0); MEAN CORPUSCULAR VOLUME 84.7 FL (80.0-94.0); MEAN PLATELET VOLUME 7.3 FL (7.4-10.4); PLATELET COUNT 177 /CUMM (130-400); RBC DISTRIBUTION WIDTH 13.7 % (11.5-14.5); RED BLOOD CELL CT 4.59 /CUMM (4.70-6.10); WHITE BLOOD CELL COUNT 4.8 /CUMM (4.8-10.8)
[2016-10-16 18:30] LABS: GRANULOCYTE % 86.5 % (42.2-75.2)
[2016-10-16] MEDS ORDERED: PERCOCET 5-3251 EACH PO (22:57)
[2016-10-16 22:58] VITALS: BP 123/69
== END 2016-10-16 23:02 ==
LOC: ERH 16:14
PROVIDERS: Physician Assistant
DX: R50.9 Fever, unspecified (principal); M79.1 Myalgia; R53.1 Weakness; R05 Cough
CPT/HCPCS: 81001; 87040; 87804; 87804-59; 96361; 96374; 96376

== ENCOUNTER 2016-10-22 01:59 | Emergency (ER) | payer OTHER ==
[~2016-10-22 01:59] MED LIST changes: +ALPRAZOLAM1 M2 PO; +FLUOXETINE HCL20 M2; +LOPERAMIDE2 M2 PO; +PROCHLORPERAZIN10 MG PO; +VENLAFAXINE HCL50 MG
--- NOTE | 2016-10-22 02:04 | ED GENERAL ADULT ---
History of Present Illness General Chief Complaint: General Adult Stated Complaint: "BODY ACHE,FEVER,HEADACHE,...I DONT KNOW" Source: patient Exam Limitations: no limitations Vital Signs & Intake/Output Vital Signs & Intake/Output Vital Signs Date Time Temp Pulse Resp B/P Pulse O2 O2 Flow FiO2 Ox Delivery Rate 10/22 0204 99.7 88 18 124/72 95 Room Air Allergies Coded Allergies: Penicillins (Intermediate, HIVES, RASH 10/16/16) Reconcile Medications Alprazolam 1 MG TABLET 1 TAB PO TID PRN ANXIETY (Reported) Fluoxetine HCl (Unknown Strength) CAPSULE (Unknown Dose) UNKNOWN (Reported) Loperamide HCl (Loperamide) (Unknown Strength) CAPSULE (Unknown Dose) UNKNOWN (Reported) Moxifloxacin HCl (Avelox) 400 MG TABLET 1 TAB PO DAILY pneumonia Oxycodone HCl/Acetaminophen (Percocet 5-325 MG Tablet) 5 MG-325 MG TABLET 1 TAB PO Q6H PRN PAIN Prochlorperazine Maleate 10 MG TABLET 1 TAB PO Q6 PRN N/V (Reported) Trazodone HCl 100 MG TABLET 1 TAB PO QHS SLEEP (Reported) Venlafaxine HCl (Unknown Strength) TABLET (Unknown Dose) UNKNOWN (Reported) Triage Nurses Notes Reviewed? yes Onset: Gradual Duration: day(s):, waxing and waning Timing: recent history Injury Environment: home Severity: moderate Modifying Factors: Improves With: rest. Associated Symptoms: pain in the back of the head HPI: 55-year-old gentleman history of colon cancer undergoing chemotherapy presents with body aches and fever. He states that he has had fevers more than 100.4 for the past several weeks since beginning chemotherapy. He was here last week, had a full workup which was unrevealing. He notes increased fatigue. Tonight, he had a temp of 101.8, with a cough productive of small amount of phlegm. He states he has decreased oral intake. No chest pain dyspnea phlegm wheezing sore throat sinus pressure diarrhea dysuria. He is otherwise well. Past History Travel History Traveled to [place] past 21 day No Medical History Any Pertinent Medical History? 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 No Review of Systems Review of Systems Constitutional: Reports: no symptoms. EENTM: Reports: no symptoms. Respiratory: Reports: no symptoms. Cardiovascular: Reports: no symptoms. GI: Reports: no symptoms. Genitourinary: Reports: no symptoms. Musculoskeletal: Reports: no symptoms. Skin: Reports: no symptoms. Neurological/Psychological: Reports: no symptoms. Hematologic/Endocrine: Reports: no symptoms. Immunologic/Allergic: Reports: no symptoms. All Other Systems: Reviewed and Negative Physical Exam Physical Exam General Appearance: alert, mild distress Head: atraumatic, normal appearance, mild musculoskeletal tenderness in the occiput and upper cervical spine. Eyes: Bilateral: normal appearance, PERRL, EOMI. Ears, Nose, Throat: normal pharynx, normal ENT inspection Neck: normal inspection, supple, full range of motion Respiratory: normal breath sounds, chest non-tender, no respiratory distress, quiet respiration, lungs clear Cardiovascular: regular rate/rhythm, edema Gastrointestinal: normal bowel sounds, soft, non-tender, no organomegaly Back: normal inspection, normal range of motion Extremities: normal inspection, normal capillary refill, normal range of motion, no edema Neurologic/Psych: no motor/sensory deficits, awake, alert, oriented x 3 Skin: intact, normal color, warm/dry Core Measures ACS in differential dx? No CVA/TIA Diagnosis: No Severe Sepsis Present: No Septic Shock Present: No Progress Differential Diagnoses I considered the following diagnoses in my evaluation of the patient: Fever and neutropenia, sepsis, dehydration, viral syndrome versus other. Plan of Care: Orders Procedure Date/time Status COMPREHENSIVE METABOLIC PANEL 10/23 215 Complete CBC WITHOUT DIFFERENTIAL 10/23 215 Complete Current Medications Sig/Dorita Start time Last Medication Dose Stop Time Status Admin Ceftriaxone Sodium 1,000 MG ONCE ONE 10/22 414 UNVr (Rocephin) 10/23 415 Sodium Chloride 1,000 ML BOLUS ONE 03/06 0345 UNVr (Normal Saline 0.9%) 10/22 0444 Laboratory Tests 10/22/16 0235: Anion Gap 8, Estimated GFR > 60, BUN/Creatinine Ratio 12.2, Glucose 119 H, Calcium 9.3, Total Bilirubin 0.6, AST 62 H, ALT 129 H, Alkaline Phosphatase 98 , Total Protein 6.3, Albumin 3.6, Globulin 2.7, Albumin/Globulin Ratio 1.3, CBC w Diff NO MAN DIFF REQ, RBC 4.13 L, MCV 83.6, MCH 29.2, RDW 13.4, MPV 6.7 L, Gran % 71.0, Lymphocytes % 12.1 L, Monocytes % 9.6 H, Eosinophils % 7.2 H, Basophils % 0.1, Absolute Granulocytes 2.0, Absolute Lymphocytes 0.3 L, Absolute Monocytes 0.3, Absolute Eosinophils 0.2, Absolute Basophils 0, PUBS MCHC 34.9 Diagnostic Imaging: Viewed by Me: Radiology Read. Discussed w/RAD: Radiology Read. CXR Impression: possible right perihilar infiltrate... full report below. Initial ED EKG: none Comments: PATIENT: SAMANTA GALICIA PRESENT AGE: 55 PATIENT ACCOUNT NO: [id number] : 56 LOCATION: [facility] ORDERING PHYSICIAN: JADEN ACEVES MD SERVICE DATE: 10/22/16 EXAM TYPE: RAD - XRY-PORTABLE CHEST XRAY EXAMINATION: XR PORTABLE CHEST CLINICAL INFORMATION: Fever COMPARISON: 10/16/2016 TECHNIQUE: Portable AP view of the chest was obtained. FINDINGS: Left subclavian port catheter tip lies at the level of the left brachiocephalic vein. Lung volumes are symmetric. There is mild ill-defined opacity in the right infrahilar region The lungs otherwise appear clear. No evidence of pneumothorax, pleural effusion, or pulmonary edema. Cardiac size is at the upper limits of normal. No acute osseous findings are seen. IMPRESSION: Mild ill-defined opacity in the right infrahilar region of uncertain significance, which could reflect bronchovascular crowding though mild developing consolidation is difficult to entirely exclude in the proper clinical setting. Short-term radiographic follow-up may be helpful. DICTATED BY: KALE AZAR MD DATE/TIME DICTATED:10/22/16 0324 CAR SHAKEOUT OPERATOR:RAD.BRANTLEY DATE/TIME TRANSCRIBED:10/22/16 / 323 CONFIDENTIAL, DO NOT COPY WITHOUT APPROPRIATE AUTHORIZATION. <Electronically signed in Other Vendor System> SIGNED BY: KALE AZAR MD 10/22/16331 Departure Departure Disposition: HOME OR SELF CARE Condition: Stable Clinical Impression Primary Impression: Colon cancer Secondary Impressions: Pneumonia Referrals: ASHLEE ALBA,AIDAN Man (PCP/Family) Departure Forms: Customer Survey General Discharge Information Prescriptions: Current Visit Scripts Moxifloxacin HCl (Avelox) 1 TAB PO DAILY #7 TAB Comments 10/22/16, 4:06am flu swab negative last week. He has cough, with small amt of phlegm in context of his chemotherapy and now an opacity consistent with early pneuomonia.... Will treat with ceftriaxone x1 and then avelox x 7 days. Pt has follow up later today. Critical Care Note Critical Care Note Critical Care Time: non-applicable
[2016-10-22 02:46] LABS: ABSOLUTE BASOPHIL COUNT 0 /CUMM (0.0-0.2); ABSOLUTE EOSINOPHIL COUNT 0.2 /CUMM (0.0-0.7); ABSOLUTE LYMPH COUNT 0.3 /CUMM (1.2-3.4); ABSOLUTE MONOCYTE COUNT 0.3 /CUMM (0.10-0.60); BASOPHIL % 0.1 % (0.0-2.0); EOSINOPHIL % 7.2 % (0-5); HEMATOCRIT 34.6 % (42-52); MEAN CORPUSCULAR HGB 29.2 PG (27.0-31.0); MEAN CORPUSCULAR HGB CONC 34.9 G/DL (33.0-37.0); MEAN CORPUSCULAR VOLUME 83.6 FL (80.0-94.0); MEAN PLATELET VOLUME 6.7 FL (7.4-10.4); PLATELET COUNT 162 /CUMM (130-400); RBC DISTRIBUTION WIDTH 13.4 % (11.5-14.5); RED BLOOD CELL CT 4.13 /CUMM (4.70-6.10); WHITE BLOOD CELL COUNT 2.8 /CUMM (4.8-10.8)
--- NOTE | 2016-10-22 03:32 | RADIOLOGY REPORT ---
EXAMINATION: XR PORTABLE CHEST CLINICAL INFORMATION: Fever COMPARISON: 10/16/2016 TECHNIQUE: Portable AP view of the chest was obtained. FINDINGS: Left subclavian port catheter tip lies at the level of the left brachiocephalic vein. Lung volumes are symmetric. There is mild ill-defined opacity in the right infrahilar region The lungs otherwise appear clear. No evidence of pneumothorax, pleural effusion, or pulmonary edema. Cardiac size is at the upper limits of normal. No acute osseous findings are seen. IMPRESSION: Mild ill-defined opacity in the right infrahilar region of uncertain significance, which could reflect bronchovascular crowding though mild developing consolidation is difficult to entirely exclude in the proper clinical setting. Short-term radiographic follow-up may be helpful.
[2016-10-22] MEDS ORDERED: AVELOX400 M1 PO (04:02)
[2016-10-22 04:19] VITALS: BP 112/58
== END 2016-10-22 05:03 ==
LOC: ERH 01:59
PROVIDERS: Pediatrics
DX: C18.9 Malignant neoplasm of colon, unspecified (principal); J18.9 Pneumonia, unspecified organism; R51 Headache
CPT/HCPCS: 96361; 96374; 96375; 99291; J0696; J1885

== ENCOUNTER 2016-10-22 18:06 | Inpatient (IN) | payer OTHER ==
[~2016-10-22] VITALS: Ht 180.3 cm; Wt 103.9 kg
[~2016-10-22 18:06] MED LIST changes: +AVELOX400 M1 PO
--- NOTE | 2016-10-22 18:26 | NUR ---
RECEIVED 55 YO MALE INSTRUCTED BY ONCOLOGY TO GO TO THE ED WHEN HIS FEVER GOES ABOVE 100.4. TEMP 102.7 IN TRIAGE. PT WITH HX OF COLON CA, PT CURRENTLY TAKING CHEMO, LAST DOSE SATURDAY. THIS IS PT'S 3RD VISIT IN ONE WEEK.
--- NOTE | 2016-10-22 18:37 | ED GENERAL ADULT ---
History of Present Illness General Chief Complaint: Fever Stated Complaint: FEVER Source: patient Exam Limitations: no limitations Vital Signs & Intake/Output Vital Signs & Intake/Output Vital Signs Date Time Temp Pulse Resp B/P Pulse O2 O2 Flow FiO2 Ox Delivery Rate 10/22 2116 100.1 81 18 115/58 97 Room Air 10/22 2022 101.4 93 18 108/64 96 Room Air 10/23 1823 98.7 106 20 113/70 94 Room Air Allergies Coded Allergies: Penicillins (Intermediate, HIVES, RASH 10/16/16) Reconcile Medications Alprazolam 1 MG TABLET 1 TAB PO TID PRN ANXIETY (Reported) Fluoxetine HCl (Unknown Strength) CAPSULE (Unknown Dose) UNKNOWN (Reported) Loperamide HCl (Loperamide) (Unknown Strength) CAPSULE (Unknown Dose) UNKNOWN (Reported) Moxifloxacin HCl (Avelox) 400 MG TABLET 1 TAB PO DAILY pneumonia Oxycodone HCl/Acetaminophen (Percocet 5-325 MG Tablet) 5 MG-325 MG TABLET 1 TAB PO Q6H PRN PAIN Prochlorperazine Maleate 10 MG TABLET 1 TAB PO Q6 PRN N/V (Reported) Trazodone HCl 100 MG TABLET 1 TAB PO QHS SLEEP (Reported) Venlafaxine HCl (Unknown Strength) TABLET (Unknown Dose) UNKNOWN (Reported) Triage Note: RECEIVED 55 YO MALE INSTRUCTED BY ONCOLOGY TO GO TO THE ED WHEN HIS FEVER GOES ABOVE 100.4. TEMP 102.7 IN TRIAGE. PT WITH HX OF COLON CA, PT CURRENTLY TAKING CHEMO, LAST DOSE SATURDAY. THIS IS PT'S 3RD VISIT IN ONE WEEK. Triage Nurses Notes Reviewed? yes Onset: Gradual Duration: getting worse Timing: recent history Severity: severe Severity Numbers: 7 No Modifying Factors: none HPI: Patient is a 55-year-old male with a recent diagnosis in July of adenocarcinoma colon cancer who received a tumor resection on September [address] Romero in which on 10/02/2016 patient had a Port-A-Cath placed for infusion of chemotherapy. Last chemotherapy dose was 5 days ago patient's oncologist is Dr. Mercado patient does state that since the chemotherapy has begun he's been complaining of denies weakness fevers body aches and chills and not feeling well however last night patient did present to the emergency room for concerns of worsening chills not feeling well cough with productive phlegm in which it was noted that there was concerns of pneumonia at the time. Patient was given IV Rocephin and administered Levaquin today by mouth outpatient in which patient was discussed with to be admitted for concerns of neutropenia and pneumonia however he wanted to try outpatient however patient returns today feeling worse. (BRAYAN DIOR) Past History Travel History Traveled to [place] past 21 day No Medical History Any Pertinent Medical History? 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 No (BRAYAN DIOR) Review of Systems Review of Systems Constitutional: Reports: see HPI, chills, fever, malaise, weakness. EENTM: Reports: no symptoms. Respiratory: Reports: see HPI, cough. Cardiovascular: Denies: chest pain. GI: Reports: no symptoms. Genitourinary: Reports: no symptoms. Musculoskeletal: Reports: no symptoms. Skin: Reports: no symptoms. Neurological/Psychological: Reports: see HPI, headache. Hematologic/Endocrine: Reports: no symptoms. Immunologic/Allergic: Reports: no symptoms. All Other Systems: Reviewed and Negative (BRAYAN DIOR) Physical Exam Physical Exam General Appearance: no apparent distress, alert, comfortable Comments: Well-developed well-nourished person in no acute distress HEENT: Normal EENT exam, extraocular motion intact, no nystagmus. Pupils equally round and reactive to light and accommodation. Nose is atraumatic. External auditory canal and Tympanic membranes clear. Pharynx normal. No swelling or edema. Neck: Supple, no lymphadenopathy, normal range of motion without pain or tenderness Back: Nontender, no CVA tenderness. Cardiovascular: Regular rate and rhythms no murmurs rubs or gallops, normal JVP Respiratory: Chest nontender. No respiratory distress.breath sounds clear to auscultation bilaterally Abdomen: Soft, nontender nondistended, no appreciable organomegaly. Normal bowel sounds. No ascites Extremity: No edema, no calf tenderness to palpation, normal and equal pulses. Neuro: Alert oriented x3, motor sensory normal, Skin: No appreciable rash on exposed skin, skin is warm and dry. Psych: Mood and affect is normal, memory and judgment is normal. Core Measures ACS in differential dx? No CVA/TIA Diagnosis: No Severe Sepsis Present: No Septic Shock Present: No (DAMARIS ALEMAN,BRAYAN) Progress Differential Diagnoses I considered the following diagnoses in my evaluation of the patient: [Sepsis, pneumonia, influenza, viral syndrome, neutropenic fever, meningitis, metastasis] Plan of Care: Orders Procedure Date/time Status Regular Diet 10/23 B Active XRY-CHEST XRAY, PA AND LATERAL 10/24 799 Active CBC WITHOUT DIFFERENTIAL 10/23 599 Active BASIC ELECTROLYTES PLUS BUN&CR 10/23 599 Active Vital Signs 10/22 2137 Active Teach/Educate 10/22 2137 Active Pain Treatment and Response 10/22 2137 Active Nutritional Intake, Monitor 10/22 2137 Active Isolation 10/22 2137 Active Intake & Output 10/22 2137 Active Patient Care Conference 10/22 2137 Active Activity/Ambulation 10/22 2137 Active LACTIC ACID 10/22 2137 Active Pathway - chart 10/23 2107 Active House Staff 10/23 2107 Active Patient Data 10/23 2107 Active CULTURE,URINE 10/23 2107 Active BLOOD CULTURE 10/23 2107 Active URINALYSIS 10/23 2107 Active Add-on Test (ER Only) 10/23 2031 Active Patient Data 10/22 2028 Active OXYGEN SETUP (GEN) 10/22 2010 Active Saline Lock 10/22 2010 Active Misc Message 10/22 2010 Active ED Holding Orders 10/22 2010 Active Vital Signs 10/22 2010 Active CIWA 10/22 2010 Active Code Status 10/22 2010 Active Admit to inpatient 10/22 2008 Active RAPID VIRAL INFLUENZA A 10/22 1837 Complete LOWER RESPIRATORY CULTURE 10/22 1837 Active LACTIC ACID 10/22 183 Complete COMPREHENSIVE METABOLIC PANEL 10/22 183 Complete CBC WITHOUT DIFFERENTIAL 10/22 1837 Complete Intake & Output 10/22 1834 Active VTE Mechanical Prophylaxis 10/22 UNK Active Current Medications Sig/Dorita Start time Last Medication Dose Stop Time Status Admin Azithromycin 500 MG DAILY 10/23 1000 AC (Zithromax) Dextrose/Water 250 ML (D5W) Prochlorperazine 10 MG Q6 PRN 10/22 2199 AC (Compazine) Trazodone HCl 100 MG 2200 10/22 220 AC (Desyrel) Vancomycin HCl 1,000 MG Q12 10/22 220 AC Dextrose/Water 250 ML (D5W) Alprazolam 1 MG TID PRN 10/22 214 AC (Xanax) 10/30 2143 Sodium Chloride 1,000 ML Q13H 10/22 2129 AC (Normal Saline 0.9%) Ceftazidime 1,000 MG IQ8 10/22 2114 AC (Fortaz) Enoxaparin Sodium 40 MG DAILY 10/22 2104 AC (Lovenox) Laboratory Tests 10/22/162132: Lactic Acid Pending 10/22/16 1845: Anion Gap 7, Estimated GFR > 60, BUN/Creatinine Ratio 13.3, Glucose 110 H, Lactic Acid 0.7, Calcium 9.0, Total Bilirubin 0.5, AST 56, ALT 106 H, Alkaline Phosphatase 99, Total Protein 6.2 L, Albumin 3.4 L, Globulin 2.8, Albumin/ Globulin Ratio 1.2, CBC w Diff NO MAN DIFF REQ, RBC 4.02 L, MCV 84.2, MCH 29.1, RDW 13.8, MPV 6.5 L, Gran % 71.3, Lymphocytes % 12.5 L, Monocytes % 11.5 H, Eosinophils % 4.5, Basophils % 0.2, Absolute Granulocytes 1.7, Absolute Lymphocytes 0.3 L, Absolute Monocytes 0.3, Absolute Eosinophils 0.1, Absolute Basophils 0, PUBS MCHC 34.6 Microbiology 10/22 2141 BLOOD: Blood Culture - RECD 10/22 2132 BLOOD: Blood Culture - RECD 10/23 2107 URINE ROUT: Urine Culture - ORD 10/22 1948 NASOPHARYN: Influenza Virus A & B Rapid Smear - COMP 10/22 1837 LOWER RESP: Respiratory Culture - ORD 10/22 1837 LOWER RESP: Gram Stain - ORD Patient currently was given azithromycin and ceftriaxone. I discussed admission with Dr. Rosado who advised patient to receive Vanco Fortaz and azithromycin in which vancomycin was administered. Blood cultures were obtained and evaluated yesterday shown to be negative. (BRAYAN DIOR) Diagnostic Imaging: Viewed by Me: Radiology Read. Radiology Impression: no acute abnormality, no fracture Initial ED EKG: none Comments: PATIENT: SAMANTA GALICIA PRESENT AGE: 55 PATIENT ACCOUNT NO: [id number] : 56 LOCATION: [facility] ORDERING PHYSICIAN: BRAYAN ALEMAN SERVICE DATE: 10/22/16 EXAM TYPE: RAD - XRY-CHEST XRAY, PA AND LATERAL EXAMINATION: XR CHEST CLINICAL INFORMATION: Pneumonia COMPARISON: Chest x-ray 10/22/2016 TECHNIQUE: 2 views of the chest were obtained. FINDINGS: No change position of the central port catheter tip in the superior vena cava. There is no acute abnormality of the chest. The lungs are clear. No pleural effusion pneumothorax. The heart size is normal. The cardiac and mediastinal contours are normal. Multilevel degenerative change of dorsal spine with endplate spurs of the vertebrae. IMPRESSION: No acute abnormality of the chest. (BRAYAN DIOR) Departure Departure Disposition: STILL A PATIENT Condition: Guarded Clinical Impression Primary Impression: Neutropenia Secondary Impressions: Fever, Upper respiratory disease Referrals: AIDAN ROSADO MD (PCP/Family) Departure Forms: Customer Survey General Discharge Information Admission Note Spoke With: AIDAN ROSADO MD Documentation of Exam: Documentation of any treatments & extenuating circumstances including Concerns Regarding Discharge (functional status, medication knowledge or non-compliance, living conditions, etc.) that warrant an admission rather than observation: [ Discussed admission with Dr. Rosado who agrees to admit patient under general medicine for concerns of neutropenia and fevers and upper respiratory infection. Patient requires IV antibiotics and pulmonary consultations, due to patient's recent chemotherapy and fevers unresolved outpatient treatment would be medically harmful] (BRAYAN DIOR) PA/DIE MAKER STAMPING Co-Sign Statement Statement: ED Attending supervision documentation- [X] I saw and evaluated the patient. I have also reviewed all the pertinent lab results and diagnostic results. I agree with the findings and the plan of care as documented in the PA's/DIE MAKER STAMPING's documentation. [X] I have reviewed the ED Record and agree with the PA's/DIE MAKER STAMPING's documentation. [] Additions or exceptions (if any) to the PAs/DIE MAKER STAMPING's note and plan are summarized below: [] (MELODIE ALBA,AMRIT Metcalf) Critical Care Note Critical Care Note Critical Care Time: non-applicable (BRAYAN DIOR)
[2016-10-22 19:02] LABS: ABSOLUTE BASOPHIL COUNT 0 /CUMM (0.0-0.2); ABSOLUTE EOSINOPHIL COUNT 0.1 /CUMM (0.0-0.7); ABSOLUTE GRANULOCYTE CT 1.7 /CUMM (1.4-6.5); ABSOLUTE LYMPH COUNT 0.3 /CUMM (1.2-3.4); ABSOLUTE MONOCYTE COUNT 0.3 /CUMM (0.10-0.60); BASOPHIL % 0.2 % (0.0-2.0); EOSINOPHIL % 4.5 % (0-5); GRANULOCYTE % 71.3 % (42.2-75.2); HEMATOCRIT 33.8 % (42-52); MEAN CORPUSCULAR HGB 29.1 PG (27.0-31.0); MEAN CORPUSCULAR HGB CONC 34.6 G/DL (33.0-37.0); MEAN CORPUSCULAR VOLUME 84.2 FL (80.0-94.0); MEAN PLATELET VOLUME 6.5 FL (7.4-10.4); PLATELET COUNT 158 /CUMM (130-400); RBC DISTRIBUTION WIDTH 13.8 % (11.5-14.5); RED BLOOD CELL CT 4.02 /CUMM (4.70-6.10); WHITE BLOOD CELL COUNT 2.5 /CUMM (4.8-10.8)
--- NOTE | 2016-10-22 19:23 | RADIOLOGY REPORT ---
EXAMINATION: XR CHEST CLINICAL INFORMATION: Pneumonia COMPARISON: Chest x-ray 10/22/2016 TECHNIQUE: 2 views of the chest were obtained. FINDINGS: No change position of the central port catheter tip in the superior vena cava. There is no acute abnormality of the chest. The lungs are clear. No pleural effusion pneumothorax. The heart size is normal. The cardiac and mediastinal contours are normal. Multilevel degenerative change of dorsal spine with endplate spurs of the vertebrae. IMPRESSION: No acute abnormality of the chest.
--- NOTE | 2016-10-22 20:14 | NUR ---
IV EST LW G20. PT MEDICATED WITH TORADOL PER EMAR. NS INFUSING PER EMAR.
--- NOTE | 2016-10-22 20:32 | History & Physical ---
NURYS ALBA,SYDNIE 10/22/16 2030: General Information and HPI MD Statement: I have seen and personally examined SAMANTA GALICIA and documented this H&P. The patient is a 55 year old M who presented with a patient stated chief complaint of fevers. Source of Information: patient Exam Limitations: no limitations History of Present Illness: This is a 55-year-old very pleasant gentleman with a past medical history of cervical spondylosis, recently diagnosed adenocarcinoma in July with status post right hemicolectomy in August 2016, with Port-A-Cath placement and recently started on chemotherapy with oxaliplatin and fluorouracil (started about 8 days ago, with last session 5 days ago), presents for evaluation of fevers. Patient reports since beginning his chemotherapy he has experienced generalized weakness and malaise, fever and chills. Home Tmax of 103.4 is reported. Patient had been seen at the ED twice including yesterday and was discharged with levofloxacin for possible CAP, after presenting with c/o cough/sputum production and fevers. Patient reported no resolution of his symptoms including fever which prompted him to return to the ED today. He denies any cough today, shortness of breath, recent infection, sick contacts, abdominal pain, mouth ulcers ,diarrhea, dysuria or increased urinary frequency. Of note, patient's f/u with oncologist at [facility] (Dr Mercado). Allergies/Medications Allergies: Coded Allergies: Penicillins (Intermediate, HIVES, RASH 10/16/16) Home Med list Alprazolam 1 MG TABLET 1 TAB PO TID PRN ANXIETY (Reported) Fluoxetine HCl (Unknown Strength) CAPSULE (Unknown Dose) UNKNOWN (Reported) Loperamide HCl (Loperamide) (Unknown Strength) CAPSULE (Unknown Dose) UNKNOWN (Reported) Moxifloxacin HCl (Avelox) 400 MG TABLET 1 TAB PO DAILY pneumonia Oxycodone HCl/Acetaminophen (Percocet 5-325 MG Tablet) 5 MG-325 MG TABLET 1 TAB PO Q6H PRN PAIN Prochlorperazine Maleate 10 MG TABLET 1 TAB PO Q6 PRN N/V (Reported) Trazodone HCl 100 MG TABLET 1 TAB PO QHS SLEEP (Reported) Venlafaxine HCl (Unknown Strength) TABLET (Unknown Dose) UNKNOWN (Reported) Past History Travel History Traveled to [place] past 21 day No Medical History Neurological: NONE EENT: NONE Cardiovascular: NONE Respiratory: NONE Gastrointestinal: NONE Hepatic: NONE Renal: kidney stone Musculoskeletal: disk herniation, ANKLE FX Psychiatric: NONE Endocrine: NONE Blood Disorders: NONE Cancer(s): 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 EENTM: Denies: ear discharge. Cardiovascular: Denies: edema, orthopena, palpitations. Respiratory: Reports: cough, sputum production. Denies: short of breath, stridor. GI: Denies: abdominal pain, bloating, constipation, bloody stool, vomiting. Genitourinary: Denies: frequency, hematuria, hesitation, nocturia. Musculoskeletal: Denies: back pain, gout, joint pain, joint swelling. Skin: Denies: change in skin color, change in hair/nails. Neurological/Psychological: Denies: confusion, depressed, emotional problems, paresthesia. Hematologic/Endocrine: Reports: no symptoms. Immunologic/Allergic: Reports: no symptoms. Exam & Diagnostic Data Last 24 Hrs of Vital Signs/I&O Vital Signs Date Time Temp Pulse Resp B/P Pulse O2 O2 Flow FiO2 Ox Delivery Rate 10/23 0312 104.5 10/23 0205 100.5 10/22 2328 97.9 79 20 148/72 95 Room Air 10/227 100.1 81 18 115/58 97 Room Air 10/223 101.4 93 18 108/64 96 Room Air 10/22 1824 98.7 106 20 113/70 94 Room Air Intake & Output 10/23 0800 / 0000 10/22 1600 Intake Total 100 Output Total Balance 100 Intake, Oral 100 Patient 104.326 kg Weight Physical Exam General Appearance Alert, Oriented X3, Cooperative Skin No Significant Lesion, left side chest Port-A-Cath area has minimum erythema, no swelling,discoloration or tenderness note. HEENT Atraumatic, oral thrush noted. no oral mucositis noted. Neck Supple, No JVD, No thryomegaly, +2 Carotid Pulse wo Bruit Lymphatic Cervical nl Cardiovascular Regular Rate, Normal S1, Normal S2, No Murmurs, Gallops, Rubs Lungs Clear to Auscultation, Normal Air Movement Abdomen Soft, No Tenderness, distended Neurological Normal Speech, Normal Tone, Sensation Intact Extremities Normal Pulses, No Tenderness/Swelling Assessment/Plan Assessment: This is a 55-year-old very pleasant gentleman with a recent history of adenocarcinoma status post hemicolectomy and currently on chemotherapy presents for evaluation of fevers. Patient is reported to have onset of general weakness , malaise and fevers since commencement of chemotherapy last week. In the past 1 week, patient has presented 2 times to this ED visit for evaluation of fevers and cough with sputum production. There was initial concern for pneumonia and patient was sent home from ED with prescription for levofloxacin. Chest x-ray obtained at that time was not remarkable for any acute infection. At the ED, patient vitals are remarkable for fever. Considering the fact that patient has just recently started chemotherapy and is reporting almost daily occurrence of fevers with a white blood count showing a downward trend, patient is being admitted for evaluation of fevers of unknown origin in the setting of leukopenia from current chemotherapy. Assessment and plan #Fevers of unknown origin. Possible source of fevers include respiratory as patient was seen for complaints of cough with sputum production. Patient also has a recently placed Port-A-Cath that could be a a possible nidus for infection, however on physical examination the area had very mild erythema and was not swollen amd not painful to suggest an active infection. Other possible source could be either urological or GI, however patient is not endorsing any symptoms of abdominal pain or diarrhea or dysuria. Fevers in a chemotherapy patient is always a concern. However, patient is currently not neutropenic, but the downtrending of his white blood cell from previous days in the setting of recent chemotherapy is concerning for possible impending neutropenia. Plan * We'll admit to general medicine floor * Will start broad coverage with ceftaz and vancomycin and azithromycin to cover for atypical organisms. Will adjust antibiotics accordingly based on patient's condition and cultures. * Will await results of pending cultures (blood, urine, and sputum) * Will repeat chest x-ray tomorrow #Leukopenia This is in the setting of recent commencement of chemotherapy. Currently not neutropenic. Plan * We'll monitor daily CBC * Currently no need for G-CSF. #Oral thrush Patient is immunocompromised in the setting of chemotherapy Plan Nystatin oral swish #History of anxiety Will continue alprazolam #History of cervical spondylosis Oxycodone and hydromorphone as needed for severe. #Percent DVT prophylaxis Subcutaneous Lovenox As Ranked By This Provider Problem List: 1. Fever of unknown origin 2. Leukopenia Core Measures/Miscellaneous Acute Coronary Syndrome ACS Diagnosis: No Cerebrovascular Accident CVA/TIA Diagnosis: No Congestive Heart Failure CHF Diagnosis: No Venous Thromboembolism VTE Risk Factors: Age > 40 No [facility] VTE prophylaxis d/t: No contraindications No VTE Pharm Prophylaxis d/t: No contraindications VTE Diagnosis: No VTE Type: NONE VTE Confirmed by (Test): NONE Severe Sepsis Severe Sepsis Present: No Septic Shock Septic Shock Present: No Miscellaneous Documentation Attending Case Discussed With: AIDAN ROSADO MD Primary Care Physician: AIDNA ROSADO MD Patient sees these Specialists oncologist Level of Patient Care: General Medicine ALBERTINA WICK 10/22/16 2116: Resident Review Statement Resident Statement: examined this patient, discussed with dental intern, agreed with dental intern Other Findings: Patient is a 55-year-old and minimal with past medical significant for cervical spondylosis, diagnosed with adenocarcinoma of the colon status post right hemicolectomy performed by Dr. Romero 09/07/2016, recently started on chemotherapy (oxaliplatin and fluorouracil), has left chest wall Port-A-Cath for chemotherapy infusion, follows up with the oncologist Dr. Mercado at [place]. Patient mentioned that his last chemotherapy was about 5 days ago, since then he 's been having generalized weakness and malaise associated with fever and chills. He was seen couple of times in the ED and the last one week with a similar concerns. Last seen in the ED yesterday with concerns of having pneumonia, he was given IV Rocephin and was discharged home on Levaquin, but patient's condition continued to get worse and came to the ED again for further evaluation. Patient reported headaches without any dizziness or lightheadedness his appetite remained poor for the last 1 week. Denies any chest discomfort or breathing or palpitations. No urinary bowel habit complaints. Denies any recent travels nobody sick at home. Vitals on admission temperature 101.4, pulse 93, respiratory rate 18, blood pressure 108/64 on room air. General Appearance: Alert and oriented 3 , not in acute distress Skin: Grossly normal HEENT: PEERLA Neck: Supple, No JVD Cardiovascular: Regular Rate, Normal S1, Normal S2, No Murmurs Lungs: Lungs clear to auscultation bilaterally Abdomen: Normal Bowel Sounds, left lower quadrant tenderness without any rebound. Neurological: Neuro exam intact grossly Extremities: No Clubbing, No Cyanosis, No Edema. Vascular: Normal Pulses . Pertinent labs on admission Leukopenia WBC count 2.5 without any evidence of segmented neutrophils are segmented bands, H&H low at 11.7/33.8, slight hyponatremia 136, normal lactic acid levels. And urinalysis pending Chest x-ray did not reveal any evidence of acute cardiopulmonary pathology. Assessment and plan: 1. Possible Chemotherapy induced leukopenia with Fever of unknown origin: * We'll admit the patient to the GenMed floor * Patient already received one-time dose of vancomycin and ceftriaxone azithromycin in the ED, will continue with vancomycin start the patient on ceftazidime, continue azithromycin from tomorrow. * Send blood cultures urine culture and sputum cultures. * Gentle hydration. * Repeat chest x-ray in the morning. * Watch for any hemodynamic instability. 2. History of anxiety and depression * Continue home medications including trazodone and alprazolam 3. History of cervical spondylosis: * Pain management moderate to severe pain control with IV Dilaudid and Percocet. 4 DVT prophylaxis with subcutaneous Lovenox 5. Patient is full code ASHLEE ALBA,[facility] 10/23/16 1155: Attending MD Review Statement Attending Statement Attending MD Statement: examined this patient, discuss w/resident/PA/POLE CLIMBER, agreed w/resident/PA/POLE CLIMBER, discussed with family, reviewed EMR data (avail), discussed with nursing, discussed with case mgmt, reviewed images, amended to note Attending Assessment/Plan: This is a 55-year-old very pleasant gentleman with a past medical history of cervical spondylosis, recently diagnosed adenocarcinoma in July with status post right hemicolectomy in August 2016, with Port-A-Cath placement and recently started on chemotherapy with oxaliplatin and fluorouracil (started about 8 days ago, with last session 5 days ago), presents for evaluation of fevers. Issues Fever in a pt with s/p chemo with neuropenia with cough prob pna COlon ca s/p surg and now on chemo Oral teresita Previous lung nodules Previous cervical disc disease S/p portacath REC Cont broad spectrum abx swab nose for mrsa COnt abx Rpt cxr IF he continues to spike call ID please Nystatin s and s Prn xanax Venodyne boots or lovenox (if platelets ok)
--- NOTE | 2016-10-22 20:58 | NUR ---
PT ASSIGNED TO ROOM 211
--- NOTE | 2016-10-22 21:24 | NUR ---
REPORT RASHEED POLANCO RN
[2016-10-22 23:28] VITALS: BP 148/72
[2016-10-23 06:07] VITALS: BP 140/72
--- NOTE | 2016-10-23 06:33 | PN- Housestaff ---
Subjective Follow-up For: FUO Subjective: Mr. Cat was seen and examined this morning. The patient reports that he feels a little better owing to few hours of sleep that he was able to get since admitted. The patient reports subjective fevers and continued diaphoresis. He also expresses neck pain which she describes as intermittent and cyclical in nature. The patient requests x-ray. Patient denies any nausea or vomiting. . Review of Systems Constitutional: Reports: see HPI, chills, diaphoresis, fever, malaise, weakness. Objective Last 24 Hrs of Vital Signs/I&O Vital Signs Date Time Temp Pulse Resp B/P Pulse O2 O2 Flow FiO2 Ox Delivery Rate 10/23 1431 101.7 107 20 132/60 96 Room Air 10/23 1055 99.3 10/23 1051 98.3 112 20 172/90 96 Room Air 10/23 0800 95.6 10/23 0607 102.0 97 20 140/72 98 Room Air 10/23 0430 102.0 10/23 0430 102.0 10/23 0312 104.5 10/23 0310 104.5 10/23 0205 100.5 / 2328 97.9 79 20 148/72 95 Room Air / 2117 100.1 81 18 115/58 97 Room Air 10/22 2023 101.4 93 18 108/64 96 Room Air Intake & Output 10/23 1600 10/23 0800 03/ 0000 Intake Total 1060 100 Output Total 1050 Balance 10 100 Intake, IV 700 Intake, Oral 360 100 Number 0 Bowel Movements Output, Urine 1050 Patient 104.326 kg Weight Physical Exam General Appearance: Alert, Oriented X3, Cooperative, Mild Distress HEENT: Diaphoretic noted on patient pillow Lymphatic: Cervical nl Cardiovascular: Normal S1, Normal S2, No Murmurs Lungs: Clear to Auscultation Abdomen: Normal Bowel Sounds, Soft, No Tenderness Neurological: Normal Speech, Negative Kernigs Sign Negative Brudinski Extremities: No Clubbing, No Cyanosis, No Edema, Normal Pulses Current Medications: Current Medications Sig/Dorita Start time Last Medication Dose Route Stop Time Status Admin Acetaminophen 0 .STK-MED ONE 10/22 2141 DC PO Acetaminophen 650 MG Q6P PRN 10/22 2114 AC 10/22 PO 2153 Alprazolam 1 MG TID PRN 10/22 2144 AC 10/23 PO 10/29 214 1454 Azithromycin 500 MG DAILY 10/24 1000 AC Dextrose/Water 250 ML IV Azithromycin 500 MG DAILY 10/23 1000 DC 10/23 Dextrose/Water 250 ML IV 0859 Azithromycin 500 MG ONCE ONE 10/22 184 DC 10/22 Dextrose/Water 250 ML IV 10/22 194 203 Ceftazidime 2,000 MG IQ8 10/23 1600 AC 10/23 IV 1752 Ceftazidime 1,000 MG IQ8 10/22 211 DC 10/23 IV 0859 Ceftriaxone Sodium 0 .STK-MED ONE 10/22 2009 DC .ROUTE Ceftriaxone Sodium 1,000 MG ONCE ONE 10/22 184 DC 10/22 IV 10/22 Enoxaparin Sodium 40 MG DAILY 10/22 210 AC 10/23 SC 0859 Hydromorphone HCl 0 .STK-MED ONE 10/23 2139 DC .ROUTE Hydromorphone HCl 1 MG Q6P PRN 10/22 2114 AC 10/23 IV 1751 Ibuprofen 600 MG .STK-MED ONE 10/23 1815 DC PO 10/23 1816 Ibuprofen 600 MG ONCE ONE 10/23 0315 DC 10/23 PO 10/23 0316 0312 Ketorolac 0 .STK-MED ONE 10/22 2008 DC Tromethamine .ROUTE Ketorolac 30 MG ONCE ONE 10/22 193 DC 10/22 Tromethamine IV 10/22 Nystatin 5 ML 4 TIMES/DAY 10/23 0500 AC 10/23 PO 1752 Oxycodone/ 0 .STK-MED ONE 10/22 2141 DC Acetaminophen PO Oxycodone/ 1 TAB Q6P PRN 10/22 211 AC 10/23 Acetaminophen PO 1229 Prochlorperazine 10 MG Q6 PRN 10/22 2200 AC 10/23 PO 1228 Sodium Chloride 1,000 ML Q13H 10/220 AC 10/23 IV 1107 Sodium Chloride 1,000 ML BOLUS ONE 10/22 184 DC / IV 10/22 Trazodone HCl 100 MG 2200 10/22 2200 AC 10/22 PO 2352 Vancomycin HCl 1,500 MG Q12H 10/23 1800 AC 10/23 Dextrose/Water 250 ML IV 1752 Vancomycin HCl 1,500 MG Q12 10/23 1547 DC Dextrose/Water 250 ML IV Vancomycin HCl 1,000 MG Q12 10/22 2200 DC 10/23 Dextrose/Water 250 ML IV 1107 Vancomycin HCl 1,000 MG ONCE ONE 10/22 2014 DC 10/22 Dextrose/Water 250 ML IV 10/22 211 2153 Last 24 Hrs of Lab/Rayo Results Last 24 Hrs of Labs/Mics: Laboratory Tests 10/23/16 0624: Anion Gap 8, Estimated GFR > 60, BUN/Creatinine Ratio 12.2, CBC w Diff NO MAN DIFF REQ, RBC 3.75 L, MCV 84.2, MCH 29.0, RDW 14.0, MPV 6.8 L, Gran % 68.9, Lymphocytes % 16.9 L, Monocytes % 11.2 H, Eosinophils % 2.9, Basophils % 0.1, Absolute Granulocytes 1.2 L, Absolute Lymphocytes 0.3 L, Absolute Monocytes 0.2, Absolute Eosinophils 0.1, Absolute Basophils 0, PUBS MCHC 34.5 10/23/16 0140: Urinalysis LIGHT H, Urine Color STRAW, Urine Clarity HAZY H, Urine pH 6.0, Ur Specific [place] <= 1.005, Urine Protein NEG, Urine Ketones NEG, Urine Nitrite NEG, Urine Bilirubin NEG, Urine Urobilinogen 0.2, Ur Leukocyte Esterase NEG, Ur Microscopic SEDIMENT EXAMINED, Urine RBC 1-3, Urine WBC RARE, Urine Bacteria RARE H, Urine Hemoglobin SMALL H, Urine Glucose NEG 10/23/16 0030: Lactic Acid 1.3 10/22/16 2133: Lactic Acid 2.8 H Microbiology 10/23 1548 URINE ROUT: Legionella Antigen - COLB 10/23 1548 URINE ROUT: Streptococcus pneumoniae Antigen (M - COLB 10/23 1302 LOWER RESP: Respiratory Culture - COLB 10/23 1302 LOWER RESP: Gram Stain - COLB 10/23 1300 HEAD/NECK: Surveillance Culture - COLB 10/23 0140 URINE ROUT: Urine Culture - RECD 10/22 2141 BLOOD: Blood Culture - RES 10/22 2132 BLOOD: Blood Culture - RES 10/22 1948 NASOPHARYN: Influenza Virus A & B Rapid Smear - COMP Assessment/Plan Assessment: This is a 55-year-old gentleman with past medical history of adenocarcinoma status post hemicolectomy recently started chemotherapy (last session 5 day ago) is presented to the emergency department with subjective fevers. At the time of admission the Patient's temperature was 101.4. He has been admitted to the General medicine floor for additional work up. #Elevated fevers likely caused by pneumonia. Cath was clean dry and intact. Showed no evidence of potential side effects infection. Imaging studies CT of the abdomen, pelvis and chest have been ordered. Continue the patient on vancomycin 1500 mg every 12. Continue ceftazidime 2000 mg IV every 8. Continue azithromycin 500 mg daily IV. Blood cultures which are currently pending. Given the patient's history of previous parvovirus infection. repeat test. And pneumonia cannot be excluded. Low respiratory cultures have been ordered. Strep pneumo and Legionella urinary antigen having ordered. #Leukopenia This is in the setting of recent commencement of chemotherapy. Monitor CBC in AM. #Oral Negar Patient is immunocompromised in the setting of starting recent chemotherapy. Nystatin Swish and [place]. #History of anxiety Continue alprazolam #History of cervical spondylosis Patient did complain of pain and requests a neck X-Ray to be perforemed. Initial Physical Exam was WNL. Oxycodone and hydromorphone as needed for severe. #DVT Prophylaxis Lovenox and ALPS Problem List: 1. Status post laparoscopic colectomy 2. Neutropenia 3. Pneumonia 4. Colon cancer 5. Dehydration 6. Fever of unknown origin 7. Elevated LFTs 8. Fever 9. Leukopenia Pain Ratin Pain Location: Intermittent Neck Pain Pain Goal: Remain pain free Pain Plan: Dilaudid 1 mg Tomorrow's Labs & Rationales: CBC: Monitor WBC count in the setting of Neutropenia and FUO BEP: Monitor Electrolytes in the setting of acute illness.
[2016-10-23 08:14] LABS: ABSOLUTE BASOPHIL COUNT 0 /CUMM (0.0-0.2); ABSOLUTE EOSINOPHIL COUNT 0.1 /CUMM (0.0-0.7); ABSOLUTE GRANULOCYTE CT 1.2 /CUMM (1.4-6.5); ABSOLUTE LYMPH COUNT 0.3 /CUMM (1.2-3.4); ABSOLUTE MONOCYTE COUNT 0.2 /CUMM (0.10-0.60); BASOPHIL % 0.1 % (0.0-2.0); EOSINOPHIL % 2.9 % (0-5); GRANULOCYTE % 68.9 % (42.2-75.2); HEMATOCRIT 31.5 % (42-52); MEAN CORPUSCULAR HGB CONC 34.5 G/DL (33.0-37.0); MEAN CORPUSCULAR VOLUME 84.2 FL (80.0-94.0); MEAN PLATELET VOLUME 6.8 FL (7.4-10.4); PLATELET COUNT 150 /CUMM (130-400); RED BLOOD CELL CT 3.75 /CUMM (4.70-6.10); WHITE BLOOD CELL COUNT 1.8 /CUMM (4.8-10.8)
--- NOTE | 2016-10-23 10:30 | NUR ---
NURSING NOTE: PATIENT OBSERVED HAVING VIOLENT CHILLS. PATIENT VISIBLY SHAKING FROM FEELING FREEZING. VASCULAR SURGEON 096 NOTIFIED AND OBSERVED PATIENT AT BEDSIDE. PATIENT STATES THIS HAS HAPPENED IN THE PAST WEEK, HE SAID IT WILL GO AWAY ON ITS OWN. PATIENT ORAL TEMP AT THIS TIME 98.6, RECTAL TEMP 99.3. WILL CONTINUE TO MONITOR.
[2016-10-23 10:51] VITALS: BP 172/90
--- NOTE | 2016-10-23 11:40 | NUR ---
NURSING NOTE: PATIENT HAS TEMP 103.4 ORALLY. LITHOGRAPH DESIGNER NOTIFIED. AWAITING NEW ORDERS. PATIENT PLACED WITH ICE PACKS. BLANKETS TAKEN OFF PATIENT. TEMPERATURE IN ROOM DECREASED. WILL CONTINUE TO MONITOR.
--- NOTE | 2016-10-23 12:00 | NUR ---
NURSING NOTE: DISTRIBUTION ARRIVED WITH WHEELCHAIR FOR CHEST X-RAY. AT THIS TIME, PATIENT FEELING TOO WEAK TO GET OUT OF BED TO STAND. RARE/ENDANGERED SPECIES SPECIALIST NOTIFIED. XRAY CANCELLED. PORTABLE CHEST XRAY ORDERED. WILL CONTINUE TO MONITOR.
--- NOTE | 2016-10-23 13:57 | RADIOLOGY REPORT ---
EXAMINATION: XR PORTABLE CHEST CLINICAL INFORMATION: Rule out pneumonia. Fever chills and cough. COMPARISON: Chest radiograph dated 10/22/2016. TECHNIQUE: Portable AP view of the chest was obtained. FINDINGS: The left subclavian chest port is unchanged in position. The heart remains mildly enlarged. There is a hazy opacity overlying the right lung base, similar to that seen on the prior examination. Left lung is relatively clear. There is no pneumothorax or pleural effusion. There are degenerative changes of the thoracic spine. IMPRESSION: There is a right lower lobe opacity. Pneumonia cannot be excluded.
--- NOTE | 2016-10-23 14:30 | NUR ---
NURSING NOTE: PATIENT TEMP AT THIS TIME 101.7. NICKER AND BREAKER NOTIFIED. ICE PACKS PLACED. WILL CONTINUE TO MONITOR.
[2016-10-23 14:31] VITALS: BP 132/60
--- NOTE | 2016-10-23 15:24 | Cons- Infect Disease ---
General Information and HPI Consulting Request Date of Consult: 10/23/16 Requested By: ASHLEE ALBA,AIDAN Man Reason for Consult: Fever status post chemotherapy Source of Information: patient, family, old records History of Present Illness: This is a 55-year-old man with a history of recurrent idiopathic febrile episodes over the past 9 years, lasting weeks to months but typically resolving on their own, most recently 6 months prior to admission, at which time he was treated empirically for Babesiosis, with the PCR ultimately found to be negative , status post bilateral ESWL approximately 4 months prior to admission, diagnosed with invasive low-grade adenocarcinoma of the colon 2 1/2 months prior to admission after a screening colonoscopy, status post right hemicolectomy 6 weeks prior to admission, begun on chemotherapy 1 week prior to admission with 5FU and Oxaliplatin via a Port-A-Cath that was inserted 3 weeks prior to admission, seen in the emergency room one day later with fevers and generalized body aches, found to be febrile to 103 with a white blood cell count of 4.8, normal liver enzymes and a negative chest x-ray, with blood cultures negative, seen again in the emergency room on the morning of admission with persistent fevers, found to be afebrile, with a white blood cell count of 2.8, mildly elevated liver enzymes and a chest x-ray revealing a mild ill-defined opacity in the right infrahilar region, given 1 dose of Ceftriaxone and discharged on Moxifloxacin, admitted on October 22 after returning to the emergency room with persistent fevers, body aches and headaches. On admission he was febrile to 101.4. Laboratory data revealed a white blood cell count of 2.5, BUN/creatinine 12 and 0.9, AST/ALT 56 and 106. Urinalysis 1-3 RBC/rare WBCs. Chest x-ray was negative. He was given Vancomycin, Ceftazidime and Azithromycin. He was febrile to 104.5 overnight and has remained febrile today. He complains of diffuse body aches and occipital headaches, but denies any specific respiratory, GI or symptoms. Allergies/Medications Allergies: Coded Allergies: Penicillins (Intermediate, HIVES, RASH 10/16/16) Home Med List: Alprazolam 1 MG TABLET 1 TAB PO TID PRN ANXIETY (Reported) Fluoxetine HCl (Unknown Strength) CAPSULE (Unknown Dose) UNKNOWN (Reported) Loperamide HCl (Loperamide) (Unknown Strength) CAPSULE (Unknown Dose) UNKNOWN (Reported) Moxifloxacin HCl (Avelox) 400 MG TABLET 1 TAB PO DAILY pneumonia Oxycodone HCl/Acetaminophen (Percocet 5-325 MG Tablet) 5 MG-325 MG TABLET 1 TAB PO Q6H PRN PAIN Prochlorperazine Maleate 10 MG TABLET 1 TAB PO Q6 PRN N/V (Reported) Trazodone HCl 100 MG TABLET 1 TAB PO QHS SLEEP (Reported) Venlafaxine HCl (Unknown Strength) TABLET (Unknown Dose) UNKNOWN (Reported) Past History Travel History Traveled to [place] past 21 day No Medical History Blood Transfusion Hx: No Neurological: NONE EENT: NONE Cardiovascular: NONE Respiratory: NONE Hepatic: NONE Renal: nephrolithiasis Musculoskeletal: disk herniation, ANKLE FX Psychiatric: NONE Endocrine: NONE Blood Disorders: NONE Cancer(s): colon/rectal cancer 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 Home Services at Home: None Smoking Status: Unknown If Ever Smoked Review of Systems Review of Systems Constitutional: Reports: chills, diaphoresis, fever, malaise. Cardiovascular: Denies: chest pain. Respiratory: Denies: cough, short of breath. GI: Reports: constipation, nausea. Denies: abdominal pain, vomiting. Genitourinary: Reports: no symptoms. Musculoskeletal: Reports: joint pain. Neurological/Psychological: Reports: headache. All Other Systems: Reviewed and Negative Exam & Diagnostic Data Last 24 Hrs of Vital Signs/I&O Vital Signs Date Time Temp Pulse Resp B/P Pulse O2 O2 Flow FiO2 Ox Delivery Rate 10/23 1431 101.7 107 20 132/60 96 Room Air 10/23 1055 99.3 10/23 1051 98.3 112 20 172/90 96 Room Air 10/23 0800 95.6 10/23 0607 102.0 97 20 140/72 98 Room Air 10/23 0430 102.0 10/23 0430 102.0 10/23 0312 104.5 10/23 0310 104.5 10/23 0205 100.5 10/22 2328 97.9 79 20 148/72 95 Room Air 10/227 100.1 81 18 115/58 97 Room Air 10/22 2022 101.4 93 18 108/64 96 Room Air 10/22 1824 98.7 106 20 113/70 94 Room Air Intake & Output 10/23 1600 10/23 0800 10/23 0000 Intake Total 1060 100 Output Total 1050 Balance 10 100 Intake, IV 700 Intake, Oral 360 100 Number 0 Bowel Movements Output, Urine 1050 Patient 230 lb Weight Physical Exam Other Physical Findings: He is awake and alert in no acute distress. MAXIMUM TEMPERATURE 104.5. Skin diaphoretic, with a macular rash on his back and a petechial appearing rash on both calves. HEENT exam is negative, with no evidence of thrush. Neck is supple with no adenopathy. Chest Port-A-Cath in the left upper chest with no inflammation at the site. Lungs are clear. Heart regular rhythm with no murmur. Abdomen is soft, nontender with positive bowel sounds. Back no CVA tenderness. Extremities no cyanosis, clubbing or edema. Neuro is without focality. Last 24 Hours of Lab Results: Laboratory Tests 10/23 10/23 0624 0140 Chemistry Sodium (137 - 145 mmol/L) 136 L Potassium (3.5 - 5.1 mmol/L) 3.9 Chloride (98 - 107 mmol/L) 104 Carbon Dioxide (22 - 30 mmol/L) 24 Anion Gap (5 - 16) 8 BUN (9 - 20 mg/dL) 11 Creatinine (0.7 - 1.2 mg/dL) 0.9 Estimated GFR (>60 ml/min) > 60 BUN/Creatinine Ratio (7 - 25 %) 12.2 Hematology CBC w Diff NO MAN DIFF REQ WBC (4.8 - 10.8 /CUMM) 1.8 L RBC (4.70 - 6.10 /CUMM) 3.75 L Hgb (14.0 - 18.0 G/DL) 10.9 L Hct (42 - 52 %) 31.5 L MCV (80.0 - 94.0 FL) 84.2 MCH (27.0 - 31.0 PG) 29.0 RDW (11.5 - 14.5 %) 14.0 Plt Count (130 - 400 /CUMM) 150 MPV (7.4 - 10.4 FL) 6.8 L Gran % (42.2 - 75.2 %) 68.9 Lymphocytes % (20.5 - 51.1 %) 16.9 L Monocytes % (1.7 - 9.3 %) 11.2 H Eosinophils % (0 - 5 %) 2.9 Basophils % (0.0 - 2.0 %) 0.1 Absolute Granulocytes (1.4 - 6.5 /CUMM) 1.2 L Absolute Lymphocytes (1.2 - 3.4 /CUMM) 0.3 L Absolute Monocytes (0.10 - 0.60 /CUMM) 0.2 Absolute Eosinophils (0.0 - 0.7 /CUMM) 0.1 Absolute Basophils (0.0 - 0.2 /CUMM) 0 PUBS MCHC (33.0 - 37.0 G/DL) 34.5 Urines Urinalysis LIGHT H Urine Color (YEL,AMB,STR) STRAW Urine Clarity (CLEAR) HAZY H Urine pH (5.0 - 8.0) 6.0 Ur Specific [place] (1.001 - 1.035) <= 1.005 Urine Protein (NEG,<30 MG/DL) NEG Urine Ketones (NEG) NEG Urine Nitrite (NEG) NEG Urine Bilirubin (NEG) NEG Urine Urobilinogen (0.1 - 1.0 EU/dl) 0.2 Ur Leukocyte Esterase (NEG) NEG Ur Microscopic SEDIMENT EXAMINED Urine RBC (0 - 5 /HPF) 1-3 Urine WBC (0 - 2 /HPF) RARE Urine Bacteria (NEG/NONE) RARE H Urine Hemoglobin (NEG) SMALL H Urine Glucose (N MG/DL) NEG 10/23 10/22 03/06 0030 2133 1845 Chemistry Sodium (137 - 145 mmol/L) 136 L Potassium (3.5 - 5.1 mmol/L) 4.0 Chloride (98 - 107 mmol/L) 102 Carbon Dioxide (22 - 30 mmol/L) 27 Anion Gap (5 - 16) 7 BUN (9 - 20 mg/dL) 12 Creatinine (0.7 - 1.2 mg/dL) 0.9 Estimated GFR (>60 ml/min) > 60 BUN/Creatinine Ratio (7 - 25 %) 13.3 Glucose (65 - 99 mg/dL) 110 H Lactic Acid (0.7 - 2.1 mmol/L) 1.3 2.8 H 0.7 Calcium (8.4 - 10.2 mg/dL) 9.0 Total Bilirubin (0.2 - 1.3 mg/dL) 0.5 AST (17 - 59 U/L) 56 ALT (21 - 72 U/L) 106 H Alkaline Phosphatase (< 127 U/L) 99 Total Protein (6.3 - 8.2 g/dL) 6.2 L Albumin (3.5 - 5.0 g/dL) 3.4 L Globulin (1.9 - 4.2 gm/dL) 2.8 Albumin/Globulin Ratio (1.1 - 2.2 %) 1.2 Hematology CBC w Diff NO MAN DIFF REQ WBC (4.8 - 10.8 /CUMM) 2.5 L RBC (4.70 - 6.10 /CUMM) 4.02 L Hgb (14.0 - 18.0 G/DL) 11.7 L Hct (42 - 52 %) 33.8 L MCV (80.0 - 94.0 FL) 84.2 MCH (27.0 - 31.0 PG) 29.1 RDW (11.5 - 14.5 %) 13.8 Plt Count (130 - 400 /CUMM) 158 MPV (7.4 - 10.4 FL) 6.5 L Gran % (42.2 - 75.2 %) 71.3 Lymphocytes % (20.5 - 51.1 %) 12.5 L Monocytes % (1.7 - 9.3 %) 11.5 H Eosinophils % (0 - 5 %) 4.5 Basophils % (0.0 - 2.0 %) 0.2 Absolute Granulocytes (1.4 - 6.5 /CUMM) 1.7 Absolute Lymphocytes (1.2 - 3.4 /CUMM) 0.3 L Absolute Monocytes (0.10 - 0.60 /CUMM) 0.3 Absolute Eosinophils (0.0 - 0.7 /CUMM) 0.1 Absolute Basophils (0.0 - 0.2 /CUMM) 0 PUBS MCHC (33.0 - 37.0 G/DL) 34.6 Last 24 Hours of Rayo Results: Blood cultures October 22 negative Urine culture October 23 pending Rapid flu swab October 22 negative Diagnostic Data Recent Imaging Findings: Chest x-ray October 23, personally reviewed, reveals a hazy opacity overlying the right lung base Assessment/Plan Assessment/Plan Impression: This is a 55-year-old man with a history of recurrent febrile episodes of unknown etiology over the past 9 years, status post right hemicolectomy 6 weeks prior to admission for adenocarcinoma of the colon and begun on chemotherapy 1 week prior to admission via a Port-A-Cath inserted 2 weeks earlier, admitted on October 22 with a one week history of recurrent fevers and body aches, found to be leukopenic with mildly elevated liver enzymes, but with no obvious focus of infection. His chest x-rays have revealed an ill-defined opacity at the right lung base raising concern for possible pneumonia, though he has little in terms of respiratory symptoms. Line sepsis, secondary to the Port-A-Cath, must be considered, but his blood cultures, obtained both 1 week ago on his ER visit and on this admission, remain negative. A drug fever, perhaps related to his recent chemotherapy, is possible but, as discussed with Oncology, seems unlikely. This could represent a recurrent febrile episode similar to his previous episodes and unrelated to his recent diagnosis of cancer or treatment, in which case it will likely resolve on its own. Of note on his previous hospitalization he was found to have evidence of previous parvovirus infection and, as suggested by Oncology, this infection can recur in immunocompromised patients; therefore one could look for evidence of this infection presently, though treatment would be supportive. Of note he is not neutropenic and may not become so; nevertheless, given his high fevers and leukopenia, he can be continued on broad-spectrum antibiotics pending cultures and further evaluation. Suggestion: 1. Send serum PCR for Parvovirus 2. Urine for Legionella antigen and strep pneumo antigen 3. CT of the chest, abdomen and pelvis with IV contrast 4. Follow-up recent cultures 5. Increase Vancomycin to 1.5 g IV every 12 hours 6. Increase Ceftazidime to 2 g IV every 8 hours 7. Continue Azithromycin pending above Consult Acknowledgment - Thank you for your consult request.
--- NOTE | 2016-10-23 16:00 | NUR ---
NURSING NOTE: PATIENT LEFT FLOOR VIA STRETCHER WITH DISTRIBUTION FOR CT SCAN. PATIENT A/OX3, AFEBRILE AT THIS TIME. NO COMPLAINTS OF PAIN AT THIS TIME. WILL AWAIT RETURN.
--- NOTE | 2016-10-23 16:30 | NUR ---
NURSING NOTE: REMOTE SENSING ANALYST CALLED THIS RN TO EXPLAIN THAT THE PATIENT STATED HE DID NOT UNDERSTAND WHY HE WAS GETTING THE SCANS ORDERED. HE REQUESTED TO SPEAK WITH AN MD ABOUT THE SCANS. LEAD JAVA PROGRAMMER [id number] NOTIFIED AND INFORMED THIS RN THAT SOMEONE FROM THE MEDICAL TEAM WOULD SPEAK WITH THIS PATIENT. WILL AWAIT CALL BACK FROM CT ABOUT WHETHER OR NOT SCANS WILL BE PERFORMED.
--- NOTE | 2016-10-23 16:40 | NUR ---
NURSING NOTE: CT CALLED THIS RN AND STATED THE PATIENT WOULD INDEED BE GETTING HIS SCANS. THIS RN NEEDED TO RUN DOWN TO CT TO DISCONNECT PATIENT FROM IV FOR IV CONTRAST TO BE PUSHED IN CT. WILL AWAIT RETURN.
--- NOTE | 2016-10-23 17:26 | RADIOLOGY REPORT ---
EXAMINATION: XR SOFT TISSUE NECK CLINICAL INDICATION: Cyclical severe neck tenderness with movement. COMPARISON: CT cervical spine 04/18/2016. TECHNIQUE: AP and lateral views of the soft tissue neck were obtained. FINDINGS: Soft tissue films of the neck demonstrate no visible abnormalities involving the pharynx. The larynx and upper trachea are partially obscured secondary to patient shoulder positioning. No visible soft tissue swelling or opaque foreign body is demonstrated. There are partially visualized degenerative changes involving the upper cervical spine. IMPRESSION: Limited visualization of the larynx and upper trachea which appear partially obscured secondary to patient shoulder positioning. The imaged portions of the pharynx and epiglottis appear unremarkable. However, please note that plain films of the neck are relatively insensitive in detecting underlying pathology of the soft tissues of the neck. There is a clinical concern for pathology of the soft tissues of the neck, consider correlation with dedicated contrast-enhanced CT of the soft tissues of the neck.
--- NOTE | 2016-10-23 18:00 | NUR ---
NURSING NOTE: PATIENT RETURNED TO FLOOR VIA STRETCHER WITH DISTRIBUTION FROM CT. PATIENT A/OX3, C/O PAIN 03/28 AT THIS TIME. PAIN MEDICATIONS GIVEN PER ORDER. PATIENT RECONNECTED TO IV FLUIDS PER ORDER. PATIENT HAS TEMP 100.1 AT THIS TIME. IV ANTIBIOTICS STARTED PER ORDER. WILL CONTINUE TO MONITOR.
--- NOTE | 2016-10-23 18:07 | PN- Pulmonary ---
Subjective HPI/Critical Care Issues: still continues to have headache and fever. Body aches noted. Feels chills. No significant rash but there is a mild redness around his calf area. Review of symptoms otherwise unremarkable Objective Vital Signs & I&O Last 24 Hrs of Vitals and I&O: Vital Signs Date Time Temp Pulse Resp B/P Pulse O2 O2 Flow FiO2 Ox Delivery Rate 10/23 1431 101.7 107 20 132/60 96 Room Air / 1055 99.3 / 1051 98.3 112 20 172/90 96 Room Air / 0800 95.6 / 0607 102.0 97 20 140/72 98 Room Air / 0430 102.0 / 0430 102.0 / 0312 104.5 / 0310 104.5 / 0205 100.5 / 2328 97.9 79 20 148/72 95 Room Air / 2117 100.1 81 18 115/58 97 Room Air / 2023 101.4 93 18 108/64 96 Room Air / 1824 98.7 106 20 113/70 94 Room Air Intake & Output / 1600 / 0800 03/ 0000 Intake Total 1060 100 Output Total 1050 Balance 10 100 Intake, IV 700 Intake, Oral 360 100 Number 0 Bowel Movements Output, Urine 1050 Patient 230 lb Weight Impression/Plan Impression/Plan Impression/Plan: He is awake and alert in no acute distress. MAXIMUM TEMPERATURE 104.5. Skin diaphoretic, with a macular rash on his back and a petechial appearing rash on both calves. HEENT exam is negative, with no evidence of thrush. Neck is supple with no adenopathy. Chest Port-A-Cath in the left upper chest with no inflammation at the site. Lungs are clear. Heart regular rhythm with no murmur. Abdomen is soft, nontender with positive bowel sounds. Back no CVA tenderness. Extremities no cyanosis, clubbing or edema. Neuro is without focality. This is a 55-year-old very pleasant gentleman with a past medical history of cervical spondylosis, recently diagnosed adenocarcinoma in July with status post right hemicolectomy in August 2016, with Port-A-Cath placement and recently started on chemotherapy with oxaliplatin and fluorouracil (started about 8 days ago, with last session 5 days ago), presents for evaluation of fevers. Patient has had previous episodes of febrile illness of unknown etiology on and off. Previously he did have IgG positive for parvovirus. Patient does have leukopenia and recent chemotherapy puts him at a higher risk for infection. His chest x-ray appears to have pneumonia. Issues Fever in a pt with s/p chemo with leukopenia with cough prob pna by chest x- ray. Requires further investigation. Other etiologies needs to be considered. Infectious disease consult obtained and appreciated. Needs to rule out parvovirus and other etiology. COlon ca s/p surg and now on chemo, high risk for neutropenia Oral teresita Previous lung nodules Previous cervical disc disease, with mild headache S/p portacath, no evidence suggestive of line sepsis REC Cont broad spectrum abx swab nose for mrsa COnt abx CT scan of the chest abdomen and pelvis with IV contrast Continue on high-dose antibiotics Send PCR for parvovirus Prn xanax Venodyne boots or lovenox (if platelets ok)
--- NOTE | 2016-10-23 19:00 | NUR ---
NURSING NOTE: PATIENT INFORMED MST THAT HE WANTED TO BE TRANSFERED TO [place] AT THIS TIME. MST INFORMED [facility] 156. SPARE HAND SPOKE WITH PATIENT ABOUT TREATMENT OPTIONS AND TRANSFER OPTIONS. AT THIS TIME PATIENT HAS EXPRESSED WANT TO BE TRANSFERED. [facility] TO FOLLOW UP WITH ATTENDING PHYSICIAN AT THIS TIME. REPORT GIVEN TO ONCOMING STEWART MCDONALD.
--- NOTE | 2016-10-23 19:25 | CT SCAN REPORT ---
EXAMINATION: CT CHEST, ABDOMEN AND PELVIS WITH CONTRAST CLINICAL INFORMATION: Fever of unknown etiology. History of colon cancer. Status post chemotherapy one week ago. COMPARISON: CT chest, abdomen and pelvis with contrast 08/18/2016. TECHNIQUE: Multidetector volumetric CT imaging of the chest, abdomen and pelvis was performed following the administration of 95 mL of Optiray 320 intravenous contrast without immediate adverse reactions. Additional 2-D coronal and sagittal reformatted images and axial 3-D maximum intensity projection MIP images of the chest were generated on the acquisition workstation. DLP: 963 mGy-cm. FINDINGS: CHEST: MOTOR WINDER: Fuselage Framer images demonstrate a partially visualized mechanical hardware along the proximal right femur. LUNGS/AIRWAYS: Evaluation of the lung parenchyma demonstrates multiple calcified and noncalcified bilateral pulmonary nodules, not significantly changed in size relative to the prior examination. For instance, there is a stable subpleural nodule along the periphery of the right upper lobe measuring 4 mm (series 3, image 18). A stable subpleural nodule is also identified along the periphery of the right upper lobe measuring 5 mm (series 5, image 120). There is a stable 6 mm nodule along the left fissure (series 5, image 1:30). Stable subcentimeter subpleural nodules are also identified along the periphery of the left lower lobe. No new or enlarging pulmonary nodules are identified. There is minimal pleural thickening within the right lung base, likely architectural representative of focal inflammation. There is no focal airspace consolidation to suggest infection. The central airways are patent, without endobronchial obstructing lesions. HEART/VESSELS: The heart is normal in size, without pericardial effusion. The thoracic aorta and main pulmonary artery are normal in caliber. No large central pulmonary emboli are identified. MEDIASTINUM/LYMPHATICS: No significant mediastinal, hilar or axillary adenopathy. PLEURA: No pleural effusions or pneumothoraces. CHEST WALL: Left chest wall Port-A-Cath with the catheter tip visualized terminating within the left brachiocephalic vein, at the confluence of the SVC and left brachiocephalic vein. ABDOMEN AND PELVIS: LIVER, GALLBLADDER, AND BILIARY TREE: There is diffuse low-attenuation of the liver parenchyma, indicative of fatty infiltration of the liver. The liver is otherwise normal in size, shape and contour. No focal hepatic lesions are identified and there is no appreciable biliary ductal dilatation. The gallbladder is contracted, without evidence of gallstones, gallbladder wall thickening or pericholecystic inflammatory changes. PANCREAS: Unremarkable. SPLEEN: The spleen appears enlarged and is visualized measuring approximately 19.4 cm in AP diameter and 17.2 cm in craniocaudal dimension; previously, 15.7 cm in AP diameter and 14.3 cm in craniocaudal dimension. No focal splenic lesions are identified. ADRENAL GLANDS: Unremarkable. KIDNEYS AND URETERS: The kidneys are normal in size and enhance homogeneously, without solid parenchymal lesions. A stable 2.6 cm simple renal cortical cyst is visualized arising from the upper pole of the right kidney. Also noted is a simple renal cortical cyst arising from the lateral cortex of the midpole of the left kidney. There is a 7 mm nonobstructing stone within a lower pole calyces of the left kidney. There is no appreciable nephrolithiasis of the right kidney or hydroureteronephrosis of either kidney or renal collecting system. No ureteral stones are identified. BLADDER: Unremarkable. GASTROINTESTINAL TRACT: Evaluation of the gastrointestinal system demonstrates postsurgical changes related to interval subtotal right hemicolectomy and ileocolonic anastomosis. There is minimal fat stranding adjacent to the anastomotic site. This finding is entirely nonspecific and may represent resolving postsurgical changes and fat necrosis. Tumor infiltration of the mesentery can appear similarly and cannot be entirely excluded. Abdominal and pelvic bowel loops are normal in caliber, without findings indicative of small bowel obstruction or ileus. There is a moderate amount of retained stool throughout the large bowel. No organizing intra-abdominal or pelvic fluid collections are identified and there is no free intraperitoneal air. ABDOMINAL WALL: Minimal subcutaneous emphysema along the right lateral abdominal wall, likely corresponding to the site of a subcutaneous injection. LYMPH NODES: No significant mesenteric, retroperitoneal, deep pelvic or inguinal adenopathy. VASCULAR: Patent abdominal vasculature. Normal course and caliber of the abdominal aorta and its branching vessels, without aneurysmal dilatation. PELVIC VISCERA: Unremarkable. OSSEOUS STRUCTURES: No acute osseous abnormality. Normal alignment of the imaged thoracolumbar spine. Mild multilevel degenerative changes of the thoracolumbar spine. No destructive osseous lesions are identified. IMPRESSION: 1. No evidence of acute infection within the chest, abdomen or pelvis. 2. Postsurgical changes related to interval subtotal right hemicolectomy and ileocolonic anastomosis, with focal fat stranding identified adjacent to the anastomotic site. This finding is entirely nonspecific but is favored to represent postsurgical changes with adjacent fat necrosis although tumor infiltration of the adjacent mesentery can also appear similarly. Superimposed infection within this region (mild colitis) cannot be excluded. Recommend close attention on follow-up imaging. Also recommend correlation with lab values. 3. Interval development of mild splenomegaly, with the spleen visualized measuring approximately 17.2 cm in length; previously, 14 cm. 4. Subcentimeter nodules within the bilateral lungs, visualized measuring up to 6 mm along the left fissure. These nodules do not appear significantly changed in size relative to the prior examination. These nodules are indeterminate and may be infectious, inflammatory or neoplastic in etiology. No new or enlarging pulmonary nodules are identified. Recommend continued attention on follow-up imaging. 5. No evidence of metastatic disease within the abdomen or pelvis. 6. Fatty infiltration of the liver. Various management parameters for pulmonary nodules are in the literature. According to the Fleischner Society, recommendations for pulmonary nodules are as follows: Nodule size > 4-6 mm in LOW RISK PATIENTS: Follow up CT at 12 months; if unchanged, no further follow up. Nodule size > 4-6 mm in HIGH RISK PATIENTS: Initial follow up CT at 6-12 months, then at 18-24 months if no change.
[2016-10-23 19:55] VITALS: BP 158/76
--- NOTE | 2016-10-23 19:55 | NUR ---
NURSING NOTE: PT SPIKED TEMP OF 104.1. MST TOOK FULL SET OF VITALS. BP 158/76, HR 99. RR 20, O2 94% ON RA. PT FEELING NAUSEOUS AND VOMITED X1 INTO GARBAGE CAN. MEXICAN FOOD MAKER 420 PAGED. ZOFRAN AND IV TYLENOL ORDERED AND M[employer] FOOD MAKER CAME UP TO ASSESS PT. WILL RECHECK TEMP WITHIN THE HOUR. WILL CONTINUE TO MONITOR.
--- NOTE | 2016-10-23 21:00 | NUR ---
NURSING NOTE: PT TEMP REASESSED AND REMAINED AT 104.1. ICE PACKS AND WASHCLOTHES GIVEN. ROOM TEMP WAS TURNED DOWN AND EXTRA BLANKETS WERE REMOVED OFF PT BED. WILL RECHECK TEMP IN 1 HOUR. WILL CONTINUE TO MONITOR.
--- NOTE | 2016-10-23 22:00 | NUR ---
NURSING NOTE: PT TEMP NOW AT 97.2. PT EXPERIENCING SWEATING. FRESH SHEETS PUT ON BED. BLANKETS REMOVED. PT REPOSITIONED AND NOW RESTING COMFORTABLY. WILL CONTINUE TO MONITOR.
[2016-10-23 23:26] VITALS: BP 118/66
[2016-10-24 03:40] VITALS: BP 124/70
--- NOTE | 2016-10-24 04:20 | NUR ---
NURSING NOTE: PT FEVER SPIKED TO 102.4. PT C/O OF HEADACHE THAT IS NOT RELIEVED BY TYLENOL. [employer]WORK [employer]ER 420 NOTIFIED AND ASKED IF CAN ORDER MOTRIN FOR PT. WILL CONTINUE TO MONITOR.
--- NOTE | 2016-10-24 06:00 | NUR ---
NURSING NOTE: PT WAS GIVEN MOTRIN AT 0430. TEMPERATURE WAS RECHECKED AT 0600 AND CAME DOWN TO 100.6. NO FURTHER ORDERS AT THIS TIME. WILL CONTINUE TO MONITOR.
--- NOTE | 2016-10-24 06:22 | PN- Housestaff ---
Subjective Follow-up For: FUO Subjective: Mr. Min was seen and examined this morning. He reports no issues overnight. The patient does state that he feels frustrated and especially owing to the fact that one is unable to come up with the source and reason that the patient is currently feeling and experiencing the symptoms. Overnight the patient does state that he continued to experience subjective fevers and chills. He denies any nausea and vomiting. He denies any bowel or bladder changes. He denies any chest pain or chest discomfort. He denies any cough. He does continue to report neck stiffness. Patient denies any vision changes or acute mental status changes. Patient does endorse generalized pain rated as 7 out of 10 in severity. Review of Systems Constitutional: Reports: see HPI. Objective Last 24 Hrs of Vital Signs/I&O Vital Signs Date Time Temp Pulse Resp B/P Pulse O2 O2 Flow FiO2 Ox Delivery Rate 10/24 1509 99.1 98 20 126/70 94 Room Air 10/24 0700 100.4 98 20 126/70 98 Room Air 10/24 0644 100.6 10/24 0644 97.2 10/24 0340 97.6 97 20 124/70 98 Room Air 10/23 2326 97.2 74 19 118/66 93 Room Air 10/23 203 104.1 10/23 1955 104.1 99 20 158/76 94 Room Air Intake & Output 10/24 1600 10/24 0800 10/24 0000 Intake Total 1200 940 345 Output Total 300 Balance 1200 640 345 Intake, IV 600 600 225 Intake, Oral 600 340 120 Output, Urine 300 Physical Exam General Appearance: Alert, Oriented X3, Cooperative Cardiovascular: Normal S1, Normal S2, No Murmurs Lungs: Clear to Auscultation Abdomen: Normal Bowel Sounds, Soft, No Tenderness Neurological: Normal Gait, Normal Speech, Strength at 5/5 X4 Ext, Normal Tone Extremities: No Clubbing Current Medications: Current Medications Sig/Dorita Start time Last Medication Dose Route Stop Time Status Admin Acetaminophen 1,000 MG ONCE ONE 10/23 2029 DC 10/23 IV 10/23 Acetaminophen 650 MG Q6P PRN 10/22 2114 AC 10/22 PO 215 Alprazolam 1 MG TID PRN 10/22 2144 AC 10/24 PO 10/30 2143 1647 Azithromycin 500 MG DAILY 10/24 1000 DC 10/24 Dextrose/Water 250 ML IV 1044 Ceftazidime 2,000 MG IQ8 10/23 1600 DC 10/24 IV 0854 Enoxaparin Sodium 40 MG DAILY 10/22 2105 AC 10/24 SC 1044 Hydromorphone HCl 1 MG Q6P PRN 10/22 2115 AC 10/24 IV 1640 Ibuprofen 600 MG ONCE ONE 10/24 0430 DC 10/24 PO 10/24 0431 0432 Nystatin 5 ML 4 TIMES/DAY 10/23 0500 AC 10/24 PO 1640 Ondansetron HCl 4 MG Q4-6 PRN PRN 10/23 2030 AC 10/24 IV 1059 Oxycodone/ 1 TAB Q6P PRN 10/22 211 AC 10/24 Acetaminophen PO 1258 Patient Medication 1 ED .STK-MED ONE 10/24 1347 SC Teaching ED 10/24 1348 Prochlorperazine 5 MG ONCE ONE 10/23 2014 CAN IV 10/24 2015 Prochlorperazine 10 MG Q6 PRN 10/22 2200 DC 10/23 PO 1228 Sodium Chloride 1,000 ML Q13H 10/22 2130 AC 10/24 IV 1424 Trazodone HCl 100 MG 2200 10/22 2200 AC 10/24 PO 0131 Vancomycin HCl 1,500 MG Q12H 10/23 1800 DC 10/24 Dextrose/Water 250 ML IV 0433 Last 24 Hrs of Lab/Rayo Results Last 24 Hrs of Labs/Mics: Laboratory Tests 10/24/16 0620: Anion Gap 10, Estimated GFR > 60, BUN/Creatinine Ratio 13.8, Magnesium 1.9, CBC w Diff NO MAN DIFF REQ, RBC 3.98 L, MCV 83.8, MCH 28.9, RDW 13.6, MPV 7.0 L, Gran % 68.9, Lymphocytes % 17.3 L, Monocytes % 10.7 H, Eosinophils % 2.9, Basophils % 0.2, Absolute Granulocytes 1.2 L, Absolute Lymphocytes 0.3 L, Absolute Monocytes 0.2, Absolute Eosinophils 0.1, Absolute Basophils 0, PUBS MCHC 34.5 Assessment/Plan Assessment: This is a 55-year-old gentleman with past medical history of adenocarcinoma status post hemicolectomy recently started chemotherapy (last session 5 day ago) is presented to the emergency department with subjective fevers. At the time of admission the Patient's temperature was 101.4. He has been admitted to the General medicine floor for additional work up. #Elevated fevers likely caused by pneumonia. Cath was clean dry and intact. Showed no evidence of potential side effects infection. Imaging studies CT of the abdomen, pelvis and chest have been ordered. Results of the imaging studies were inconclusive for any acute follow G and/or source of infection. Continue the patient on vancomycin 1500 mg every 12. Continue ceftazidime 2000 mg IV every 8. Continue azithromycin 500 mg daily IV. Recommendations from infectious diseases specialist recommends that above antibiotic should be discontinued and the patient should be monitored off antibiotics. Blood cultures initial blood cultures are currently negative. Given the patient's history of previous parvovirus infection. repeat test. And pneumonia cannot be excluded. Low respiratory cultures have been ordered. Strep pneumo and Legionella urinary antigen having ordered. #Leukopenia This is in the setting of recent commencement of chemotherapy. Monitor CBC in AM. #Oral Negar Patient is immunocompromised in the setting of starting recent chemotherapy. Nystatin Swish and Swallaw. #History of anxiety Continue alprazolam #History of cervical spondylosis X-ray performed yesterday did not show any acute pathologies. MRI with and without gadolinium of the head and neck has been ordered for today. Initial Physical Exam was WNL. Oxycodone and hydromorphone as needed for severe pain. #DVT Prophylaxis Lovenox and ALPS Problem List: 1. Status post laparoscopic colectomy 2. Colon cancer 3. Fever of unknown origin Pain Ratin Pain Location: Generalized Pain Pain Goal: Remain pain free Pain Plan: Dilaudid Tomorrow's Labs & Rationales: CBC: Monitor WBC in the setting of ?infection with elevated temperatures BEP: Monitor electrolyltes in the setting of elevated fevers
[2016-10-24 07:00] VITALS: BP 126/70
[2016-10-24 08:17] LABS: ABSOLUTE BASOPHIL COUNT 0 /CUMM (0.0-0.2); ABSOLUTE EOSINOPHIL COUNT 0.1 /CUMM (0.0-0.7); ABSOLUTE GRANULOCYTE CT 1.2 /CUMM (1.4-6.5); ABSOLUTE LYMPH COUNT 0.3 /CUMM (1.2-3.4); ABSOLUTE MONOCYTE COUNT 0.2 /CUMM (0.10-0.60); BASOPHIL % 0.2 % (0.0-2.0); EOSINOPHIL % 2.9 % (0-5); GRANULOCYTE % 68.9 % (42.2-75.2); HEMATOCRIT 33.3 % (42-52); MEAN CORPUSCULAR HGB 28.9 PG (27.0-31.0); MEAN CORPUSCULAR HGB CONC 34.5 G/DL (33.0-37.0); MEAN CORPUSCULAR VOLUME 83.8 FL (80.0-94.0); PLATELET COUNT 132 /CUMM (130-400); RBC DISTRIBUTION WIDTH 13.6 % (11.5-14.5); RED BLOOD CELL CT 3.98 /CUMM (4.70-6.10); WHITE BLOOD CELL COUNT 1.8 /CUMM (4.8-10.8)
--- NOTE | 2016-10-24 14:57 | PN- Infect Dx ---
Subjective Subjective: MAXIMUM TEMPERATURE 104.1. He feels overall better, but still complains of a mild occipital headache and intermittent chills. Objective Last 24 Hrs of Vital Signs/I&O Vital Signs Date Time Temp Pulse Resp B/P Pulse O2 O2 Flow FiO2 Ox Delivery Rate 10/24 0700 100.4 98 20 126/70 98 Room Air 10/24 0644 100.6 10/24 0644 97.2 10/24 0340 97.6 97 20 124/70 98 Room Air 10/23 2326 97.2 74 19 118/66 93 Room Air 10/23 2035 104.1 10/23 1955 104.1 99 20 158/76 94 Room Air 10/23 1800 100.1 Intake & Output 10/24 1600 10/24 0800 10/24 0000 Intake Total 940 345 Output Total 300 Balance 640 345 Intake, IV 600 225 Intake, Oral 340 120 Output, Urine 300 Physical Exam Other Physical Findings: He appears more comfortable in no acute distress Skin nondiaphoretic; petechial rash over both calves Lungs are clear Heart regular rhythm with no murmur Abdomen soft, nontender with positive bowel sounds Extremities no cyanosis, clubbing or edema Results Last 24 Hours of Lab Results: Laboratory Tests 10/24 06 Chemistry Sodium (137 - 145 mmol/L) 135 L Potassium (3.5 - 5.1 mmol/L) 3.7 Chloride (98 - 107 mmol/L) 99 Carbon Dioxide (22 - 30 mmol/L) 26 Anion Gap (5 - 16) 10 BUN (9 - 20 mg/dL) 11 Creatinine (0.7 - 1.2 mg/dL) 0.8 Estimated GFR (>60 ml/min) > 60 BUN/Creatinine Ratio (7 - 25 %) 13.8 Magnesium (1.6 - 2.3 mg/dL) 1.9 Hematology CBC w Diff NO MAN DIFF REQ WBC (4.8 - 10.8 /CUMM) 1.8 L RBC (4.70 - 6.10 /CUMM) 3.98 L Hgb (14.0 - 18.0 G/DL) 11.5 L Hct (42 - 52 %) 33.3 L MCV (80.0 - 94.0 FL) 83.8 MCH (27.0 - 31.0 PG) 28.9 RDW (11.5 - 14.5 %) 13.6 Plt Count (130 - 400 /CUMM) 132 MPV (7.4 - 10.4 FL) 7.0 L Gran % (42.2 - 75.2 %) 68.9 Lymphocytes % (20.5 - 51.1 %) 17.3 L Monocytes % (1.7 - 9.3 %) 10.7 H Eosinophils % (0 - 5 %) 2.9 Basophils % (0.0 - 2.0 %) 0.2 Absolute Granulocytes (1.4 - 6.5 /CUMM) 1.2 L Absolute Lymphocytes (1.2 - 3.4 /CUMM) 0.3 L Absolute Monocytes (0.10 - 0.60 /CUMM) 0.2 Absolute Eosinophils (0.0 - 0.7 /CUMM) 0.1 Absolute Basophils (0.0 - 0.2 /CUMM) 0 PUBS MCHC (33.0 - 37.0 G/DL) 34.5 Last 24 Hours of Rayo Results: Blood cultures 2 October 22 negative Urine culture October 23 negative Recent Imaging Studies: CT of the chest, abdomen and pelvis with IV contrast October 23 no evidence of any acute infection or metastatic disease within the abdomen or pelvis Assessment/Plan Impression: Fevers, beginning immediately after receiving his first chemotherapy 1 week prior to admission, with no obvious focus of infection and with cultures remaining negative. It is not clear if this current episode is related to his previous febrile episodes, which have occurred intermittently over the past 9 years, and which have remained unexplained. He is not neutropenic now 1 week status post completion of his 5-FU infusion and, with cultures negative, feel that his antibiotics can be discontinued. The etiology of his recurrent febrile episodes remains unclear, with an infectious process unlikely, as he is well in between, and further evaluation, perhaps to rule out an autoimmune process, may be indicated. His rash has apparently been present for several years and is, therefore, of unclear significance. Suggestion: 1. Discontinue Vancomycin, Azithromycin and Ceftazidime and follow off antibiotics
[2016-10-24 15:09] VITALS: BP 126/70
--- NOTE | 2016-10-24 18:57 | PN- Pulmonary ---
Subjective HPI/Critical Care Issues: Ongoing fever Stable other [place] All blood work neg so far Objective Current Medications: Current Medications Sig/Dorita Start time Last Medication Dose Route Stop Time Status Admin Acetaminophen 1,000 MG ONCE ONE 10/23 2029 DC 10/23 IV 10/23 Acetaminophen 650 MG Q6P PRN 10/22 2114 AC 10/22 PO 2153 Alprazolam 1 MG TID PRN 10/22 2145 AC 10/24 PO 10/29 2144 1647 Azithromycin 500 MG DAILY 10/24 1000 DC 10/24 Dextrose/Water 250 ML IV 1044 Ceftazidime 2,000 MG IQ8 10/23 1600 DC 10/24 IV 0854 Enoxaparin Sodium 40 MG DAILY 10/22 2104 AC 10/24 SC 1044 Hydromorphone HCl 1 MG Q6P PRN 10/22 2114 AC 10/24 IV 1640 Ibuprofen 600 MG ONCE ONE 10/24 0430 DC 10/24 PO 10/24 0431 0432 Nystatin 5 ML 4 TIMES/DAY 10/23 0500 AC 10/24 PO 1640 Ondansetron HCl 4 MG Q4-6 PRN PRN 10/23 2030 AC 10/24 IV 1059 Oxycodone/ 1 TAB Q6P PRN 10/22 2114 AC 10/24 Acetaminophen PO 1258 Patient Medication 1 ED .STK-MED ONE 10/24 1347 DC Teaching ED 10/24 1348 Prochlorperazine 5 MG ONCE ONE 10/23 2014 CAN IV 10/24 2015 Prochlorperazine 10 MG Q6 PRN 10/22 2200 DC 10/23 PO 1228 Sodium Chloride 1,000 ML Q13H 10/22 213 AC 10/24 IV 1424 Trazodone HCl 100 MG 2200 10/22 220 AC 10/24 PO 0131 Vancomycin HCl 1,500 MG Q12H 10/23 1800 DC 10/24 Dextrose/Water 250 ML IV 0433 Vital Signs & I&O Last 24 Hrs of Vitals and I&O: Vital Signs Date Time Temp Pulse Resp B/P Pulse O2 O2 Flow FiO2 Ox Delivery Rate 10/24 1509 99.1 98 20 126/70 94 Room Air 10/24 0700 100.4 98 20 126/70 98 Room Air 10/24 0644 100.6 10/24 0644 97.2 10/24 0340 97.6 97 20 124/70 98 Room Air 10/236 97.2 74 19 118/66 93 Room Air 10/23 2034 104.1 10/23 1954 104.1 99 20 158/76 94 Room Air Intake & Output 10/24 1600 10/24 0800 03 0000 Intake Total 1200 940 345 Output Total 300 Balance 1200 640 345 Intake, IV 600 600 225 Intake, Oral 600 340 120 Output, Urine 300 Impression/Plan Impression/Plan Impression/Plan: He is awake and alert in no acute distress. MAXIMUM TEMPERATURE 104.5. Skin diaphoretic, with a macular rash on his back and a petechial appearing rash on both calves. HEENT exam is negative, with no evidence of thrush. Neck is supple with no adenopathy. Chest Port-A-Cath in the left upper chest with no inflammation at the site. Lungs are clear. Heart regular rhythm with no murmur. Abdomen is soft, nontender with positive bowel sounds. Back no CVA tenderness. Extremities no cyanosis, clubbing or edema. Neuro is without focality. CT neg for any abnormality This is a 55-year-old very pleasant gentleman with a past medical history of cervical spondylosis, recently diagnosed adenocarcinoma in July with status post right hemicolectomy in August 2016, with Port-A-Cath placement and recently started on chemotherapy with oxaliplatin and fluorouracil (started about 8 days ago, with last session 5 days ago), presents for evaluation of fevers. Patient has had previous episodes of febrile illness of unknown etiology on and off. Previously he did have IgG positive for parvovirus. Patient does have leukopenia and recent chemotherapy puts him at a higher risk for infection. His chest x-ray appears to have pneumonia. Issues Fever in a pt with s/p chemo with leukopenia with cough prob pna by chest x- ray. Requires further investigation. Other etiologies needs to be considered. Infectious disease consult obtained and appreciated. Needs to rule out parvovirus and other etiology. COlon ca s/p surg and now on chemo, high risk for neutropenia Oral teresita Previous lung nodules Previous cervical disc disease, with mild headache S/p portacath, no evidence suggestive of line sepsis REC Please make sure the following tests are sent Send PCR for parvovirus KALE, rheumatoid panel, LYme panel, ESR, CRP, ANCA panel, COmplement levels, CPK, COld agglutinins, Parvovirus pcr with the next blood draw RPT blood culture if his temp more than 102 WIll follow closely Check cbc in am to make sure that he does not go into neutropenia Prn xanax Venodyne boots or lovenox (if platelets ok)
[2016-10-24 22:32] VITALS: BP 130/82
--- NOTE | 2016-10-24 23:52 | NUR ---
1900 PATIENT SPIKED A FEVER OF 102.5. MD ILIANA ROUSE NOTIFIED. PATIENT GIVEN 1000MG IV OF TYLENOL. BLOOD CULTURES DRAWN PER MD ORDER. TEMPERATURE RECHECKED AT 2030 WHICH WAS 98.5. PATIENT ASYMPTOMATIC THROUGHOUT SHIFT, DENIES ANY CHILLS STATES HE FEELS "MUCH BETTER TONIGHT" COMPARED TO LAST NIGHT.
--- NOTE | 2016-10-25 05:53 | PN- Housestaff ---
Subjective Follow-up For: FUO Subjective: was seen and examined this morning. Patient states that he feels slightly better although was unable to get much rest last night. He subsequently reports that his room was extremely cold owing to the fact that the temperature on the thermometer had been turned down. Patient does state that he continues to be experience generalized pain as well as experience a frontal headache. Headache is rated at an 8 out of 10 described as dull. Patient states that he has not received his pain medications this morning and has been requesting these for the last 1 hour. Patient was unable to go for his MRI last evening owing to the fact that he felt lethargic. Patient denies any fever, chills, nausea, vomiting. Review of Systems Constitutional: Reports: see HPI. Objective Last 24 Hrs of Vital Signs/I&O Vital Signs Date Time Temp Pulse Resp B/P Pulse O2 O2 Flow FiO2 Ox Delivery Rate 10/25 0729 97 20 140/88 94 10/24 2232 98.5 89 20 130/82 94 Room Air 10/24 191 102.5 10/24 1509 99.1 98 20 126/70 94 Room Air Intake & Output 10/25 1600 10/25 0800 10/25 0000 Intake Total 1600 1120 Output Total 1 Balance 1600 1119 Intake, IV 600 600 Intake, Oral 1000 520 Output, Stool 1 Physical Exam General Appearance: Alert, Oriented X3, Cooperative Skin: No Rashes Cardiovascular: Regular Rate, Normal S1, Normal S2, No Murmurs Lungs: Clear to Auscultation Abdomen: Normal Bowel Sounds, Soft, No Tenderness Neurological: Normal Gait, Normal Speech Extremities: No Clubbing, No Cyanosis Current Medications: Current Medications Sig/Dorita Start time Last Medication Dose Route Stop Time Status Admin Acetaminophen 1,000 MG ONCE ONE 10/24 1914 DC 10/24 IV 10/24 Acetaminophen 650 MG .STK-MED ONE 10/24 1906 DC PO 10/25 1907 Acetaminophen 650 MG Q6P PRN 10/22 2114 AC 10/22 PO 2152 Alprazolam 1 MG TID PRN 10/22 2144 AC 10/24 PO 10/30 2143 222 Azithromycin 500 MG DAILY 10/24 1000 DC 10/24 Dextrose/Water 250 ML IV 1044 Calcium Carbonate 500 MG ONCE ONE 10/24 2129 DC 10/24 PO 03/08 2131 2224 Ceftazidime 2,000 MG IQ8 10/23 1600 DC 10/24 IV 0854 Enoxaparin Sodium 40 MG DAILY 10/22 210 AC 10/24 SC 1044 Hydromorphone HCl 1 MG Q6P PRN 10/22 211 AC 10/25 IV 0711 Nystatin 5 ML 4 TIMES/DAY 10/23 0500 AC 10/24 PO 1640 Ondansetron HCl 4 MG .STK-MED ONE 10/24 1856 DC IM 10/24 1857 Ondansetron HCl 4 MG .STK-MED ONE 10/24 1055 DC IM 10/24 1056 Ondansetron HCl 4 MG Q4-6 PRN PRN 10/23 2030 AC 10/25 IV 0313 Oxycodone/ 1 TAB Q6P PRN 10/22 211 AC 10/25 Acetaminophen PO 0312 Patient Medication 1 ED .STK-MED ONE 10/24 1347 DC Teaching ED 10/24 1348 Sodium Chloride 1,000 ML Q13H 10/22 213 AC 10/25 IV 0312 Trazodone HCl 100 MG 2200 10/22 2200 AC 10/24 PO 2224 Vancomycin HCl 1,500 MG Q12H 10/23 1800 DC 10/24 Dextrose/Water 250 ML IV 0433 Last 24 Hrs of Lab/Rayo Results Last 24 Hrs of Labs/Mics: Laboratory Tests 10/25/16 0620: Anion Gap 7, Estimated GFR > 60, BUN/Creatinine Ratio 13.8, CBC w Diff Pending, WBC Pending, RBC Pending, Hgb Pending, Hct Pending, MCV Pending, MCH Pending, RDW Pending, Plt Count Pending, MPV Pending, PUBS MCHC Pending, ESR Westergren Pending Microbiology 10/24 2025 BLOOD: Blood Culture - RECD 10/24 2024 BLOOD: Blood Culture - RECD Orders Radiology Findings: IMPRESSION: Brain: There is no abnormal intracranial mass or enhancement. There are a few scattered nonspecific changes within the periventricular white matter that most likely represent a chronic manifestation of small vessel ischemia. No evidence of acute territorial infarct or hemorrhage. Cervical spine: There is multilevel degenerative spondylosis of the cervical spine with moderate canal stenosis at the levels of C3-C4 and C4-C5 and mild canal stenosis at C5-C6. There are varying degrees of neuroforaminal encroachment related to uncovertebral joint hypertrophy and facet degenerative change as described above. No cord compression or abnormal intramedullary signal changes. No abnormal soft tissue mass or enhancement. DICTATED BY: JOSE ESCOBEDO MD Assessment/Plan Assessment: This is a 55-year-old gentleman with past medical history of adenocarcinoma status post hemicolectomy recently started chemotherapy (last session 5 day ago) is presented to the emergency department with subjective fevers. At the time of admission the Patient's temperature was 101.4. He has been admitted to the General medicine floor for additional work up. #Elevated fevers likely caused by pneumonia. Cath was clean dry and intact. Showed no evidence of potential side effects infection. Imaging studies CT of the abdomen, pelvis and chest have been ordered. Results of the imaging studies were inconclusive for any acute follow G and/or source of infection. Continue the patient on vancomycin 1500 mg every 12. Continue ceftazidime 2000 mg IV every 8. Continue azithromycin 500 mg daily IV. Recommendations from infectious diseases specialist recommends that above antibiotic should be discontinued and the patient should be monitored off antibiotics. Closely monitoring off abx. Blood cultures initial blood cultures are currently negative. Repeat blood cultures from 10/24/2016: pending Given the patient's history of previous parvovirus infection. repeat test, Pending results. And pneumonia cannot be excluded. Low respiratory cultures have been ordered. Strep pneumo and Legionella urinary antigen having ordered. #Leukopenia This is in the setting of recent commencement of chemotherapy. Monitor CBC in AM. #Oral Negar Patient is immunocompromised in the setting of starting recent chemotherapy. Nystatin Swish and Swallaw. #History of anxiety Continue alprazolam #History of cervical spondylosis X-ray performed yesterday did not show any acute pathologies. MRI with and without gadolinium of the head and neck has been ordered for today. Initial Physical Exam was WNL. Oxycodone and hydromorphone as needed for severe pain. #DVT Prophylaxis Lovenox and ALPS Problem List: 1. Fever of unknown origin 2. Splenomegaly 3. Leukopenia Pain Ratin Pain Location: Generalized Body pain/Headache Pain Goal: Remain pain free Pain Plan: Dilaudid Tomorrow's Labs & Rationales: CBC BEP
[2016-10-25 07:29] VITALS: BP 140/88
[2016-10-25 08:07] LABS: ABSOLUTE BASOPHIL COUNT 0 /CUMM (0.0-0.2); ABSOLUTE EOSINOPHIL COUNT 0.1 /CUMM (0.0-0.7); ABSOLUTE GRANULOCYTE CT 0.9 /CUMM (1.4-6.5); ABSOLUTE LYMPH COUNT 0.3 /CUMM (1.2-3.4); ABSOLUTE MONOCYTE COUNT 0.2 /CUMM (0.10-0.60); BASOPHIL % 0.1 % (0.0-2.0); EOSINOPHIL % 6.8 % (0-5); GRANULOCYTE % 59.6 % (42.2-75.2); HEMATOCRIT 30.5 % (42-52); MEAN CORPUSCULAR HGB 28.8 PG (27.0-31.0); MEAN CORPUSCULAR HGB CONC 34.3 G/DL (33.0-37.0); MEAN PLATELET VOLUME 7.3 FL (7.4-10.4); PLATELET COUNT 124 /CUMM (130-400); RBC DISTRIBUTION WIDTH 13.8 % (11.5-14.5); RED BLOOD CELL CT 3.63 /CUMM (4.70-6.10); WHITE BLOOD CELL COUNT 1.5 /CUMM (4.8-10.8)
--- NOTE | 2016-10-25 09:40 | PN- Pulmonary ---
Subjective HPI/Critical Care Issues: was seen and examined this morning. Patient states that he feels slightly better although was unable to get much rest last night. He subsequently reports that his room was extremely cold owing to the fact that the temperature on the thermometer had been turned down. Patient does state that he continues to be experience generalized pain as well as experience a frontal headache. Headache is rated at an 8 out of 10 described as dull. Patient states that he has not received his pain medications this morning and has been requesting these for the last 1 hour. Patient was unable to go for his MRI last evening owing to the fact that he felt lethargic. Patient denies any fever, chills, nausea, vomiting. Review of Systems Constitutional: Reports: see HPI. Objective Current Medications: Current Medications Sig/Dorita Start time Last Medication Dose Route Stop Time Status Admin Acetaminophen 1,000 MG ONCE ONE 10/24 1914 DC 10/24 IV 10/25 1915 191 Acetaminophen 650 MG .STK-MED ONE 10/24 1907 DC PO 10/24 190 Acetaminophen 650 MG Q6P PRN 10/22 2114 AC 10/22 PO 2153 Alprazolam 1 MG TID PRN 10/22 2145 AC 10/24 PO 10/29 2144 2224 Azithromycin 500 MG DAILY 10/24 1000 DC 10/24 Dextrose/Water 250 ML IV 1044 Calcium Carbonate 500 MG ONCE ONE 10/24 2130 DC / PO 10/24 2131 2224 Ceftazidime 2,000 MG IQ8 10/23 1600 DC 10/24 IV 0854 Enoxaparin Sodium 40 MG DAILY 10/22 2105 AC 10/24 SC 1044 Hydromorphone HCl 1 MG Q6P PRN 10/22 2115 AC 10/25 IV 0711 Nystatin 5 ML 4 TIMES/DAY 10/23 0500 AC 10/24 PO 1640 Ondansetron HCl 4 MG .STK-MED ONE 10/24 1856 DC IM 10/24 1857 Ondansetron HCl 4 MG .STK-MED ONE 10/24 1055 DC IM 10/24 1056 Ondansetron HCl 4 MG Q4-6 PRN PRN 10/23 2030 AC 10/25 IV 0824 Oxycodone/ 1 TAB Q6P PRN 10/22 2114 10/25 Acetaminophen PO 0930 Patient Medication 1 ED .STK-MED ONE 10/24 1347 [place] Teaching ED 10/24 1348 Sodium Chloride 1,000 ML Q13H 10/22 2130 AC 10/25 IV 0312 Trazodone HCl 100 MG 2200 10/22 2200 AC 10/24 PO 2224 Vancomycin HCl 1,500 MG Q12H 10/23 1800 DC 10/24 Dextrose/Water 250 ML IV 0433 Vital Signs & I&O Last 24 Hrs of Vitals and I&O: Vital Signs Date Time Temp Pulse Resp B/P Pulse O2 O2 Flow FiO2 Ox Delivery Rate 10/25 0729 97 20 140/88 94 10/24 2232 98.5 89 20 130/82 94 Room Air 10/24 1919 102.5 10/24 1509 99.1 98 20 126/70 94 Room Air Intake & Output 10/25 1600 10/25 0800 10/25 0000 Intake Total 1600 1120 Output Total 1 Balance 1600 1119 Intake, IV 600 600 Intake, Oral 1000 520 Output, Stool 1 Impression/Plan Impression/Plan Impression/Plan: He is awake and alert in no acute distress. MAXIMUM TEMPERATURE 104.5. Skin diaphoretic, with a macular rash on his back and a petechial appearing rash on both calves. HEENT exam is negative, with no evidence of thrush. Neck is supple with no adenopathy. Chest Port-A-Cath in the left upper chest with no inflammation at the site. Lungs are clear. Heart regular rhythm with no murmur. Abdomen is soft, nontender with positive bowel sounds. Back no CVA tenderness. Extremities no cyanosis, clubbing or edema. Neuro is without focality. CT neg for any abnormality This is a 55-year-old very pleasant gentleman with a past medical history of cervical spondylosis, recently diagnosed adenocarcinoma in July with status post right hemicolectomy in August 2016, with Port-A-Cath placement and recently started on chemotherapy with oxaliplatin and fluorouracil (started about 8 days ago, with last session 5 days ago), presents for evaluation of fevers. Patient has had previous episodes of febrile illness of unknown etiology on and off. Previously he did have IgG positive for parvovirus. Patient does have leukopenia and recent chemotherapy puts him at a higher risk for infection. His chest x-ray appears to have pneumonia. Issues Fever in a pt with s/p chemo with leukopenia with cough prob pna by chest x- ray. Requires further investigation. Other etiologies needs to be considered. Infectious disease consult obtained and appreciated. Needs to rule out parvovirus and other etiology. COlon ca s/p surg and now on chemo, high risk for neutropenia Oral teresita Previous lung nodules Previous cervical disc disease, with mild headache S/p portacath, no evidence suggestive of line sepsis REC Discussed with Dr Shearer and all the necessary tests will be sent today MRI c spine and head with and without Ask Onc to see him (Dr. Trujillo) and ask if he needs neupogen Cont tylenol iv if needed ID following and ask them if he needs abx if he truly becomes sig neutropenic ( less than 500) Check cbc in am to make sure that he does not go into neutropenia Prn xanax Venodyne boots or lovenox (if platelets ok) Will follow
--- NOTE | 2016-10-25 12:36 | Cons- Oncology ---
General Information and HPI Consulting Request Date of Consult: 10/25/16 Requested By: ASHLEE ALBA,AIDAN Man Reason for Consult: fever, colon cancer Source of Information: patient Exam Limitations: no limitations History of Present Illness: Mr. Cat is a 55 year-old male with history of recurrent fever and recently diagnosed stage IIIB colon cancer status post resection and cycle 1 day 11 of FOLFOX who presented to the hospital with persistent fever and myalgia. He has been having fever since the day of adjuvant chemotherapy. He has been feeling sick and diffuse myalgia. He has been seen in the ED multiple times for the same symptoms. Evaluation has been negative to date. Blood cultures and influenza have been negative. He was admitted again on 10/23/2016 after being admitted to the hospital with high fever and myalgia. Since hospitalization, he heen seen by infectious disease. He was initially placed on antibiotics with vancomycin, azithromycin, and ceftazidime. These have since been stopped. He continues to be febrile with downward trending WBC. Allergies/Medications Allergies: Coded Allergies: Penicillins (Intermediate, HIVES, RASH 10/16/16) Home Med List: Alprazolam 1 MG TABLET 1 TAB PO TID PRN ANXIETY (Reported) Fluoxetine HCl (Unknown Strength) CAPSULE (Unknown Dose) UNKNOWN (Reported) Loperamide HCl (Loperamide) (Unknown Strength) CAPSULE (Unknown Dose) UNKNOWN (Reported) Moxifloxacin HCl (Avelox) 400 MG TABLET 1 TAB PO DAILY pneumonia Oxycodone HCl/Acetaminophen (Percocet 5-325 MG Tablet) 5 MG-325 MG TABLET 1 TAB PO Q6H PRN PAIN Prochlorperazine Maleate 10 MG TABLET 1 TAB PO Q6 PRN N/V (Reported) Trazodone HCl 100 MG TABLET 1 TAB PO QHS SLEEP (Reported) Venlafaxine HCl (Unknown Strength) TABLET (Unknown Dose) UNKNOWN (Reported) Current Medications: Current Medications Sig/Dorita Start time Last Medication Dose Route Stop Time Status Admin Acetaminophen 1,000 MG ONCE ONE 10/24 1914 DC 10/24 IV 10/24 Acetaminophen 650 MG .STK-MED ONE 10/24 1906 DC PO 10/24 190 Acetaminophen 650 MG Q6P PRN 10/225 AC 10/22 PO 215 Alprazolam 1 MG TID PRN 10/22 2145 AC 10/24 PO 10/29 2144 2224 Azithromycin 500 MG DAILY 10/24 1000 DC 10/24 Dextrose/Water 250 ML IV 1044 Calcium Carbonate 500 MG ONCE ONE 10/24 2130 DC 10/24 PO 10/24 2131 2224 Ceftazidime 2,000 MG IQ8 10/23 1600 DC 10/24 IV 0854 Enoxaparin Sodium 40 MG DAILY 10/22 2105 AC 10/24 SC 1044 Hydromorphone HCl 1 MG Q6P PRN 10/22 2115 AC 10/25 IV 0711 Nystatin 5 ML 4 TIMES/DAY 10/23 0500 AC 10/24 PO 1640 Ondansetron HCl 4 MG .STK-MED ONE 10/24 1856 DC IM 10/24 1857 Ondansetron HCl 4 MG Q4-6 PRN PRN 10/23 2030 AC 10/25 IV 0824 Oxycodone/ 1 TAB Q6P PRN 10/22 2115 AC 10/25 Acetaminophen PO 0930 Patient Medication 1 ED .STK-MED ONE 10/24 1347 [place] Teaching ED 10/24 1348 Sodium Chloride 1,000 ML Q13H 10/22 2130 AC 10/25 IV 0312 Trazodone HCl 100 MG 2200 10/22 2200 AC 10/24 PO 2224 Vancomycin HCl 1,500 MG Q12H 10/23 1800 DC 10/24 Dextrose/Water 250 ML IV 0433 Review of Systems Review of Systems Constitutional: Reports: chills, diaphoresis, fever, weakness. Cardiovascular: Denies: chest pain. Respiratory: Denies: short of breath. GI: Denies: abdominal pain, diarrhea. Musculoskeletal: Reports: muscle pain. Hematologic/Endocrine: Denies: bleeding. Immunologic/Allergic: Denies: lymphadenopathy. 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 Home Services at Home: None Smoking Status: Unknown If Ever Smoked Exam & Diagnostic Data Vital Signs and I&O Vital Signs Date Time Temp Pulse Resp B/P Pulse O2 O2 Flow FiO2 Ox Delivery Rate 10/25 0729 97 20 140/88 94 10/24 2232 98.5 89 20 130/82 94 Room Air 10/24 1919 102.5 10/24 1509 99.1 98 20 126/70 94 Room Air Intake & Output 10/25 1600 10/25 0800 10/25 0000 Intake Total 1600 1120 Output Total 1 Balance 1600 1119 Intake, IV 600 600 Intake, Oral 1000 520 Output, Stool 1 Physical Exam General Appearance: alert, awake, comfortable Head: atraumatic, normal appearance Neck: normal inspection Respiratory: normal breath sounds, chest non-tender, no respiratory distress Cardiovascular: regular rate/rhythm Gastrointestinal: normal bowel sounds, soft, non-tender Back: normal inspection Extremities: normal inspection Skin: rash (lower extremity hyperpigmented) Lymphatic: no anterior cervical ginny, no other adenopathy Last 48 Hours of Lab Results: Laboratory Tests 10/25 10/25 1000 0620 Chemistry Sodium (137 - 145 mmol/L) 134 L Potassium (3.5 - 5.1 mmol/L) 3.9 Chloride (98 - 107 mmol/L) 102 Carbon Dioxide (22 - 30 mmol/L) 25 Anion Gap (5 - 16) 7 BUN (9 - 20 mg/dL) 11 Creatinine (0.7 - 1.2 mg/dL) 0.8 Estimated GFR (>60 ml/min) > 60 BUN/Creatinine Ratio (7 - 25 %) 13.8 Hematology CBC w Diff NO MAN DIFF REQ WBC (4.8 - 10.8 /CUMM) 1.5 L RBC (4.70 - 6.10 /CUMM) 3.63 L Hgb (14.0 - 18.0 G/DL) 10.5 L Hct (42 - 52 %) 30.5 L MCV (80.0 - 94.0 FL) 84.0 MCH (27.0 - 31.0 PG) 28.8 RDW (11.5 - 14.5 %) 13.8 Plt Count (130 - 400 /CUMM) 124 L MPV (7.4 - 10.4 FL) 7.3 L Gran % (42.2 - 75.2 %) 59.6 Lymphocytes % (20.5 - 51.1 %) 22.6 Monocytes % (1.7 - 9.3 %) 10.9 H Eosinophils % (0 - 5 %) 6.8 H Basophils % (0.0 - 2.0 %) 0.1 Absolute Granulocytes (1.4 - 6.5 /CUMM) 0.9 L Absolute Lymphocytes (1.2 - 3.4 /CUMM) 0.3 L Absolute Monocytes (0.10 - 0.60 /CUMM) 0.2 Absolute Eosinophils (0.0 - 0.7 /CUMM) 0.1 Absolute Basophils (0.0 - 0.2 /CUMM) 0 PUBS MCHC (33.0 - 37.0 G/DL) 34.3 ESR Westergren (0 - 10 MM) 6 Immunology ANCA Pending Complement C3 Pending Complement C4 Pending Miscellaneous Ref Lab Test Result Pending Serology Parvovirus Source Pending Parvovirus B19 DNA PCR Pending 10/25 619 Chemistry Sodium (137 - 145 mmol/L) 135 L Potassium (3.5 - 5.1 mmol/L) 3.7 Chloride (98 - 107 mmol/L) 99 Carbon Dioxide (22 - 30 mmol/L) 26 Anion Gap (5 - 16) 10 BUN (9 - 20 mg/dL) 11 Creatinine (0.7 - 1.2 mg/dL) 0.8 Estimated GFR (>60 ml/min) > 60 BUN/Creatinine Ratio (7 - 25 %) 13.8 Magnesium (1.6 - 2.3 mg/dL) 1.9 Creatine Kinase (55 - 170 U/L) 324 H Hematology CBC w Diff NO MAN DIFF REQ WBC (4.8 - 10.8 /CUMM) 1.8 L RBC (4.70 - 6.10 /CUMM) 3.98 L Hgb (14.0 - 18.0 G/DL) 11.5 L Hct (42 - 52 %) 33.3 L MCV (80.0 - 94.0 FL) 83.8 MCH (27.0 - 31.0 PG) 28.9 RDW (11.5 - 14.5 %) 13.6 Plt Count (130 - 400 /CUMM) 132 MPV (7.4 - 10.4 FL) 7.0 L Gran % (42.2 - 75.2 %) 68.9 Lymphocytes % (20.5 - 51.1 %) 17.3 L Monocytes % (1.7 - 9.3 %) 10.7 H Eosinophils % (0 - 5 %) 2.9 Basophils % (0.0 - 2.0 %) 0.2 Absolute Granulocytes (1.4 - 6.5 /CUMM) 1.2 L Absolute Lymphocytes (1.2 - 3.4 /CUMM) 0.3 L Absolute Monocytes (0.10 - 0.60 /CUMM) 0.2 Absolute Eosinophils (0.0 - 0.7 /CUMM) 0.1 Absolute Basophils (0.0 - 0.2 /CUMM) 0 PUBS MCHC (33.0 - 37.0 G/DL) 34.5 Immunology KALE Titer Pending Anti-Nuclear Antibody Pending Imaging/Other Studies: CT chest/abdomen/pelvis 10/23/2016: 1. No evidence of acute infection within the chest, abdomen or pelvis. 2. Postsurgical changes related to interval subtotal right hemicolectomy and ileocolonic anastomosis, with focal fat stranding identified adjacent to the anastomotic site. This finding is entirely nonspecific but is favored to represent postsurgical changes with adjacent fat necrosis although tumor infiltration of the adjacent mesentery can also appear similarly. Superimposed infection within this region (mild colitis) cannot be excluded. Recommend close attention on follow-up imaging. Also recommend correlation with lab values. 3. Interval development of mild splenomegaly, with the spleen visualized measuring approximately 17.2 cm in length; previously, 14 cm. 4. Subcentimeter nodules within the bilateral lungs, visualized measuring up to 6 mm along the left fissure. These nodules do not appear significantly changed in size relative to the prior examination. These nodules are indeterminate and may be infectious, inflammatory or neoplastic in etiology. No new or enlarging pulmonary nodules are identified. Recommend continued attention on follow-up imaging. 5. No evidence of metastatic disease within the abdomen or pelvis. 6. Fatty infiltration of the liver. Soft tissue neck x-ray 10/23/2016: Limited visualization of the larynx and upper trachea which appear partially obscured secondary to patient shoulder positioning. The imaged portions of the pharynx and epiglottis appear unremarkable. However, please note that plain films of the neck are relatively insensitive in detecting underlying pathology of the soft tissues of the neck. There is a clinical concern for pathology of the soft tissues of the neck, consider correlation with dedicated contrast- enhanced CT of the soft tissues of the neck. Assessment/Plan Assessment: Mr. Cat is a 55-year-old male with stage IIIB colon cancer status post resection and cycle 1 of FOLFOX who presents with fever, myalgia, and neutropenia. He has been febrile since 6 hours after day 1 infusion. His fever has been as high as 104F. He has chills and rigors with the fever. He continue to have myalgia with the fever. Symptoms are similar to previous episodes he has had for the past 9 years or so. His last hospitalization back March of 2016. His symptoms improved at that time. During that work up he was noted to have positive IgG for Parvovirus B19. Symptoms were similar to that presentation along with the neutropenia and thrombocytopenia. The pancytopenia is worse this time but may be related to the chemotherapy effect. Current work up has been negative for any bacteria infection. Influenza is negative. Imaging demonstrated splenomegaly. This is similar to previous presentations. His symptoms are concerning for potential viral etiology. There are some reports of potential reactivation of parvovirus B19 in immunocompromised patient. His chemotherapy may potentilly trigger these symptoms. It is odd that his symptoms started right after the infusion on the first day. Reaction to the chemotherapy is another potential etiology but less likely given the duration of his symptoms. He is currently being evaluated for autoimmune process. Overall he feels a little better. His pancytopenia is worsened a little today. No intervention is needed at the moment for his neutropenia. He is not hemodynamically unstable. It is unsure if he truly has an underlying infectious etiology. He should be continued to be monitored for now. Other option would be to consider empiric short course of steroid. This may help with his fever and other inflammatory process. I would hold off on doing this until infectious etiology is ruled out. Recommendations: 1. No need for filgrastim at the moment 2. Follow up on cultures 3. Follow up on parvovirus evaluation (PCR) 4. Follow up ID recommendations 5. Follow up on autoimmune process work up with ANCA, KALE 6. Can consider short course of steroid if infectious etiology ruled out Problem List: 1. Colon cancer 2. Neutropenia 3. Fever of unknown origin 4. Splenomegaly Other Findings/Comments: Please call [phone] with any questions Consult Acknowledgment - Thank you for your consult request.
--- NOTE | 2016-10-25 14:11 | MRI REPORT ---
EXAMINATION: MRI BRAIN AND CERVICAL SPINE WITHOUT AND WITH CONTRAST. CLINICAL INFORMATION: Persistent neck pain. Colon carcinoma. Recent chemotherapy. Evaluate for metastatic disease. COMPARISON: CT scan of the cervical spine 04/18/2016. TECHNIQUE: Multiplanar MR imaging of the brain and cervical spine was performed without and with intravenous administration of gadolinium contrast. A total of 10 mL Gadavist was utilized for this examination. No adverse contrast reaction was reported. FINDINGS: Brain: There are scattered nonspecific foci of T2 FLAIR signal hyperintensity within the periventricular white matter. No evidence of acute territorial infarct or hemorrhage. No pathological magnetic susceptibility artifact. Intracranial vascular flow voids including the major dural venous sinuses are preserved. Postcontrast images reveal no abnormal mass or enhancement. There is no intracranial mass effect or midline shift. No abnormal extra-axial collection. Lateral and third ventricles are normal. No hydrocephalus. Midline structures including the cervicomedullary junction are normal. Bone marrow signal intensity is unremarkable. There is no mastoid or middle ear effusion. There is mild paranasal sinus disease within ethmoid air cells and a few mucous retention cysts within the alveolar recesses of the maxillary sinuses. Globes and orbits are symmetric. Cervical spine: Patient motion degrades image quality on this component of the examination therefore the diagnostic accuracy is limited. Chronic subcutaneous scarring is visualized within the soft tissues of the posterior neck that extends from C5 to C6 that suggests a history of prior surgery. There is near-anatomic alignment and position of the vertebral bodies and posterior elements of the cervical spine in the sagittal dimension. Vertebral body heights are preserved. There is disc desiccation at multiple levels within the cervical spine without substantial loss of intervertebral disc height. The occipital condyles and lateral C1 masses are intact. The atlantodental joint is normal. C1-C2 articular facets are unremarkable. No evidence of overt cord compression and no abnormal intramedullary signal changes. At C2-C3 the annular contour is normal. Uncovertebral joint hypertrophy and facet degenerative change causes mild left neuroforaminal encroachment. At C3-C4 there is a diffusely bulging disc causing ventral flattening of the thecal sac. Bilateral facet degenerative change. Moderate canal stenosis. Uncovertebral joint hypertrophy and facet degenerative change causes moderate to severe bilateral neuroforaminal encroachment. At C4-C5 there is a diffuse annular bulge. Advanced bilateral facet degenerative change. Moderate canal stenosis. Uncovertebral joint hypertrophy and facet degenerative change causes moderate to severe bilateral neuroforaminal encroachment. At C5-C6 there is a diffuse annular bulge. Mild canal stenosis. Uncovertebral joint hypertrophy and facet degenerative change causes at least mild bilateral neuroforaminal encroachment. At C6-C7 there is a diffuse annular bulge. No canal stenosis. There is bilateral uncovertebral joint hypertrophy and facet degenerative change. No substantial neuroforaminal encroachment. At C7-T1 there is a slight annular bulge. Bilateral facet degenerative change. No canal stenosis. There is moderate right and mild left neuroforaminal encroachment. Limited visualization of the soft tissues of the neck reveals no abnormal finding. IMPRESSION: Brain: There is no abnormal intracranial mass or enhancement. There are a few scattered nonspecific changes within the periventricular white matter that most likely represent a chronic manifestation of small vessel ischemia. No evidence of acute territorial infarct or hemorrhage. Cervical spine: There is multilevel degenerative spondylosis of the cervical spine with moderate canal stenosis at the levels of C3-C4 and C4-C5 and mild canal stenosis at C5-C6. There are varying degrees of neuroforaminal encroachment related to uncovertebral joint hypertrophy and facet degenerative change as described above. No cord compression or abnormal intramedullary signal changes. No abnormal soft tissue mass or enhancement.
[2016-10-25 14:22] VITALS: BP 134/80
--- NOTE | 2016-10-25 15:14 | PN- Infect Dx ---
Subjective Subjective: MAXIMUM TEMPERATURE 102.5. He feels "lousy" with persistent occipital headaches and intermittent chills but with no other focal complaints. Objective Last 24 Hrs of Vital Signs/I&O Vital Signs Date Time Temp Pulse Resp B/P Pulse O2 O2 Flow FiO2 Ox Delivery Rate 10/25 1422 97.5 86 20 134/80 94 Room Air 10/25 0729 97 20 140/88 94 10/24 2232 98.5 89 20 130/82 94 Room Air 10/24 1919 102.5 10/24 1509 99.1 98 20 126/70 94 Room Air Intake & Output 10/25 1600 10/25 0800 10/25 0000 Intake Total 1600 1120 Output Total 1 Balance 1600 1119 Intake, IV 600 600 Intake, Oral 1000 520 Output, Stool 1 Physical Exam Other Physical Findings: He appears comfortable in no acute distress Skin no new rash Neck is supple with no adenopathy Lungs are clear Heart regular rhythm with no murmur Abdomen soft, nontender with positive bowel sounds Extremities no cyanosis, clubbing or edema Results Last 24 Hours of Lab Results: Laboratory Tests 10/25 10/25 1000 0620 Chemistry Sodium (137 - 145 mmol/L) 134 L Potassium (3.5 - 5.1 mmol/L) 3.9 Chloride (98 - 107 mmol/L) 102 Carbon Dioxide (22 - 30 mmol/L) 25 Anion Gap (5 - 16) 7 BUN (9 - 20 mg/dL) 11 Creatinine (0.7 - 1.2 mg/dL) 0.8 Estimated GFR (>60 ml/min) > 60 BUN/Creatinine Ratio (7 - 25 %) 13.8 Hematology CBC w Diff NO MAN DIFF REQ WBC (4.8 - 10.8 /CUMM) 1.5 L RBC (4.70 - 6.10 /CUMM) 3.63 L Hgb (14.0 - 18.0 G/DL) 10.5 L Hct (42 - 52 %) 30.5 L MCV (80.0 - 94.0 FL) 84.0 MCH (27.0 - 31.0 PG) 28.8 RDW (11.5 - 14.5 %) 13.8 Plt Count (130 - 400 /CUMM) 124 L MPV (7.4 - 10.4 FL) 7.3 L Gran % (42.2 - 75.2 %) 59.6 Lymphocytes % (20.5 - 51.1 %) 22.6 Monocytes % (1.7 - 9.3 %) 10.9 H Eosinophils % (0 - 5 %) 6.8 H Basophils % (0.0 - 2.0 %) 0.1 Absolute Granulocytes (1.4 - 6.5 /CUMM) 0.9 L Absolute Lymphocytes (1.2 - 3.4 /CUMM) 0.3 L Absolute Monocytes (0.10 - 0.60 /CUMM) 0.2 Absolute Eosinophils (0.0 - 0.7 /CUMM) 0.1 Absolute Basophils (0.0 - 0.2 /CUMM) 0 PUBS MCHC (33.0 - 37.0 G/DL) 34.3 ESR Westergren (0 - 10 MM) 6 Immunology ANCA Pending Complement C3 Pending Complement C4 Pending Miscellaneous Ref Lab Test Result Pending Serology Parvovirus Source Pending Parvovirus B19 DNA PCR Pending Last 24 Hours of Rayo Results: Blood cultures October 22 negative Urine culture October 23 negative Blood cultures October 24 negative Recent Imaging Studies: MRI of the head and cervical spine negative for any acute process Assessment/Plan Impression: Persistent fevers, beginning immediately after receiving his first chemotherapy 1 week prior to admission, with no obvious focus of infection and with cultures remaining negative. It is not clear if this current episode is related to his previous febrile episodes, which have occurred intermittently over the past 9 years, and which have remained unexplained, or if it is secondary to his recent chemotherapy. His white blood cell count has decreased somewhat, now with 900 neutrophils, 8 days status post completion of his 5-FU infusion. He is currently off antibiotics, but, if his fevers persist and neutrophil count drops below 500, his antibiotic may need to be restarted. Suggestion: 1. Follow-up blood work for an autoimmune disease/vasculitis 2. Continue to follow temperatures and white blood cell count closely off antibiotics
[2016-10-25 22:02] VITALS: BP 104/60
[2016-10-26 06:11] VITALS: BP 129/85
--- NOTE | 2016-10-26 06:43 | PN- Housestaff ---
Subjective Follow-up For: FUO Subjective: Mr. Cat was seen and examined this morning. He is resting comfortably in bed. Patient states that he does feel better compared to last 24 hours. Patient does report he had a decreased appetite over the last 24 hours owing to feeling generalized malaise. Overnight he was able to get some sleep and felt that his fevers are most stable compared to his previous night. Patient also states that his symptoms of his headache have improved, although are still present Patient does continue to report generalized pain. Patient denies any nausea, chills, vomiting. Review of Systems Constitutional: Reports: see HPI. Objective Last 24 Hrs of Vital Signs/I&O Vital Signs Date Time Temp Pulse Resp B/P Pulse O2 O2 Flow FiO2 Ox Delivery Rate 10/26 0611 98.0 86 20 129/85 95 Room Air 10/25 2202 98.5 89 20 104/60 96 Room Air 10/25 1422 97.5 86 20 134/80 94 Room Air Intake & Output 10/26 1600 10/26 0800 10/26 0000 Intake Total 465 Output Total Balance 465 Intake, IV 225 Intake, Oral 240 Physical Exam General Appearance: Alert, Oriented X3, Cooperative Cardiovascular: Regular Rate, Normal S1, Normal S2 Lungs: Clear to Auscultation Abdomen: Normal Bowel Sounds, Soft, No Tenderness Neurological: Normal Gait, Normal Speech Extremities: No Clubbing, No Cyanosis, No Edema, Normal Pulses Current Medications: Current Medications Sig/Dorita Start time Last Medication Dose Route Stop Time Status Admin Acetaminophen 650 MG .STK-MED ONE 10/25 1202 DC PO 10/25 1203 Acetaminophen 650 MG Q6P PRN 10/22 2114 AC 10/26 PO 0043 Alprazolam 1 MG TID PRN 10/22 2145 AC 10/25 PO 10/29 2144 2200 Enoxaparin Sodium 40 MG DAILY 10/22 2104 AC 10/25 SC 1332 Hydromorphone HCl 1 MG Q6P PRN 10/22 2114 AC 10/26 IV 0718 Nystatin 5 ML 4 TIMES/DAY 10/23 0500 AC 10/25 PO 2200 Ondansetron HCl 4 MG .STK-MED ONE 10/25 194 DC IM 10/25 1950 Ondansetron HCl 4 MG .STK-MED ONE 10/25 08 DC IM 10/25 0821 Ondansetron HCl 4 MG Q4-6 PRN PRN 10/23 2030 AC 10/25 IV 1954 Oxycodone/ 1 TAB Q6P PRN 10/22 2114 AC 10/25 Acetaminophen PO 1822 Sodium Chloride 1,000 ML Q13H 10/22 213 AC 10/25 IV 195 Trazodone HCl 100 MG 2200 10/22 2199 AC 10/25 PO 2200 Last 24 Hrs of Lab/Rayo Results Last 24 Hrs of Labs/Mics: Laboratory Tests 10/26/16 0624: Sodium Pending, Potassium Pending, Chloride Pending, Carbon Dioxide Pending, Anion Gap Pending, BUN Pending, Creatinine Pending, BUN/Creatinine Ratio Pending , CBC w Diff NO MAN DIFF REQ, RBC 3.75 L, MCV 83.2, MCH 28.0, RDW 14.2, MPV 7.5 , Gran % 52.8, Lymphocytes % 24.8, Monocytes % 13.5 H, Eosinophils % 8.7 H, Basophils % 0.2, Absolute Granulocytes 1.2 L, Absolute Lymphocytes 0.6 L, Absolute Monocytes 0.3, Absolute Eosinophils 0.2, Absolute Basophils 0, PUBS MCHC 33.6 10/25/16 1000: ANCA Pending, Complement C3 Pending, Complement C4 Pending, Ref Lab Test Result Pending, Parvovirus Source Pending, Parvovirus B19 DNA PCR Pending Assessment/Plan Assessment: This is a 55-year-old gentleman with past medical history of adenocarcinoma status post hemicolectomy recently started chemotherapy (last session 5 day ago) is presented to the emergency department with subjective fevers. At the time of admission the Patient's temperature was 101.4. He has been admitted to the General medicine floor for additional work up. #Elevated fevers likely caused by pneumonia. Cath was clean dry and intact. Showed no evidence of potential side effects infection. Imaging studies CT of the abdomen, pelvis and chest have been ordered. Results of the imaging studies were inconclusive for any acute follow G and/or source of infection. Continue the patient on vancomycin 1500 mg every 12. Continue ceftazidime 2000 mg IV every 8. Continue azithromycin 500 mg daily IV. Recommendations from infectious diseases specialist recommends that above antibiotic should be discontinued and the patient should be monitored off antibiotics. Closely monitoring off abx. Blood cultures initial blood cultures are currently negative. Repeat blood cultures from 10/24/2016: pending Given the patient's history of previous parvovirus infection. repeat test, Pending results. And pneumonia cannot be excluded. Low respiratory cultures have been ordered. Strep pneumo and Legionella urinary antigen having ordered. #Leukopenia This is in the setting of recent commencement of chemotherapy, WBC: 2.3 Monitor CBC in AM. #Oral Negar Patient is immunocompromised in the setting of starting recent chemotherapy. Nystatin Swish and [place]. #History of anxiety Continue alprazolam #History of cervical spondylosis X-ray performed yesterday did not show any acute pathologies. MRI with and without gadolinium of the head and neck has been ordered done on 10/25/2016. Initial Physical Exam was WNL. Oxycodone and hydromorphone as needed for severe pain. #DVT Prophylaxis Lovenox and ALPS Problem List: 1. Upper respiratory disease 2. Neutropenia 3. Pneumonia 4. Status post laparoscopic colectomy 5. Colon cancer Pain Ratin Pain Location: Generalized Pain Pain Goal: Remain pain free Pain Plan: Dilaudid Tomorrow's Labs & Rationales: WBC: Monitor for neutropenia BEP: Monitor electrolytes
[2016-10-26 07:59] LABS: ABSOLUTE BASOPHIL COUNT 0 /CUMM (0.0-0.2); ABSOLUTE EOSINOPHIL COUNT 0.2 /CUMM (0.0-0.7); ABSOLUTE GRANULOCYTE CT 1.2 /CUMM (1.4-6.5); ABSOLUTE LYMPH COUNT 0.6 /CUMM (1.2-3.4); ABSOLUTE MONOCYTE COUNT 0.3 /CUMM (0.10-0.60); BASOPHIL % 0.2 % (0.0-2.0); EOSINOPHIL % 8.7 % (0-5); GRANULOCYTE % 52.8 % (42.2-75.2); HEMATOCRIT 31.2 % (42-52); MEAN CORPUSCULAR HGB CONC 33.6 G/DL (33.0-37.0); MEAN CORPUSCULAR VOLUME 83.2 FL (80.0-94.0); MEAN PLATELET VOLUME 7.5 FL (7.4-10.4); PLATELET COUNT 123 /CUMM (130-400); RBC DISTRIBUTION WIDTH 14.2 % (11.5-14.5); RED BLOOD CELL CT 3.75 /CUMM (4.70-6.10)
[2016-10-26 08:15] LABS: WHITE BLOOD CELL COUNT 2.3 /CUMM (4.8-10.8)
--- NOTE | 2016-10-26 08:24 | PN- Oncology ---
Subjective Subjective: He continues to feel unwell. Fever is better. He continues to have headaches and neck pain. Review of Systems Constitutional: Reports: chills, fever, weakness. Cardiovascular: Denies: chest pain. Respiratory: Denies: short of breath. Gastrointestinal: Denies: abdominal pain. Genitourinary: Denies: dysuria. Musculoskeletal: Denies: back pain. Neurological/Psychological: Denies: anxiety. Hematologic/Endocrine: Denies: bruising, bleeding. Immunologic/Allergic: Denies: lymphadenopathy. All Other Systems: Reviewed and Negative Objective Vital Signs and I&Os Vital Signs Date Time Temp Pulse Resp B/P Pulse O2 O2 Flow FiO2 Ox Delivery Rate 10/26 0611 98.0 86 20 129/85 95 Room Air 10/25 2202 98.5 89 20 104/60 96 Room Air 10/25 1422 97.5 86 20 134/80 94 Room Air Intake & Output 10/26 1600 10/26 0800 10/26 0000 10/25 1600 10/25 0800 10/25 0000 Intake Total 465 1170 1600 1120 Output Total 1 Balance 465 1170 1600 1119 Intake, IV 225 450 600 600 Intake, Oral 321 508 6572 520 Output, Stool 1 Physical Exam General Appearance: no apparent distress, alert, awake, comfortable Ears, Nose, Throat: normal pharynx Neck: normal inspection Respiratory: normal breath sounds, chest non-tender, no respiratory distress Cardiovascular: regular rate/rhythm Abdomen: normal bowel sounds, soft, non-tender, no organomegaly Extremities: normal inspection, normal capillary refill Neurologic/Psychiatric: awake, alert, oriented x 3 Current Medications: Current Medications Sig/Dorita Start time Last Medication Dose Route Stop Time Status Admin Acetaminophen 650 MG .STK-MED ONE 10/25 1202 DC PO 10/25 1203 Acetaminophen 650 MG Q6P PRN 10/22 2114 AC 10/26 PO 0043 Alprazolam 1 MG TID PRN 10/22 2144 AC 10/25 PO 10/29 214 2200 Enoxaparin Sodium 40 MG DAILY 10/22 2104 AC 10/25 SC 1332 Hydromorphone HCl 1 MG Q6P PRN 10/22 2114 AC 10/26 IV 0718 Nystatin 5 ML 4 TIMES/DAY 10/23 0500 AC 10/25 PO 2200 Ondansetron HCl 4 MG .STK-MED ONE 10/25 1948 DC IM 10/25 1950 Ondansetron HCl 4 MG .STK-MED ONE 10/26 819 DC IM 10/25 08 Ondansetron HCl 4 MG Q4-6 PRN PRN 10/23 2029 AC 10/25 IV 1954 Oxycodone/ 1 TAB Q6P PRN 10/22 2114 AC 10/25 Acetaminophen PO 182 Sodium Chloride 1,000 ML Q13H 10/220 AC 10/25 IV 1958 Trazodone HCl 100 MG 2200 10/22 2199 AC 10/25 PO 2200 Results Last 24 Hours of Lab Results: Laboratory Tests 10/26 10/25 0624 1000 Chemistry Sodium Pending Potassium Pending Chloride Pending Carbon Dioxide Pending Anion Gap Pending BUN Pending Creatinine Pending BUN/Creatinine Ratio Pending Hematology CBC w Diff NO MAN DIFF REQ WBC (4.8 - 10.8 /CUMM) 2.3 L RBC (4.70 - 6.10 /CUMM) 3.75 L Hgb (14.0 - 18.0 G/DL) 10.5 L Hct (42 - 52 %) 31.2 L MCV (80.0 - 94.0 FL) 83.2 MCH (27.0 - 31.0 PG) 28.0 RDW (11.5 - 14.5 %) 14.2 Plt Count (130 - 400 /CUMM) 123 L MPV (7.4 - 10.4 FL) 7.5 Gran % (42.2 - 75.2 %) 52.8 Lymphocytes % (20.5 - 51.1 %) 24.8 Monocytes % (1.7 - 9.3 %) 13.5 H Eosinophils % (0 - 5 %) 8.7 H Basophils % (0.0 - 2.0 %) 0.2 Absolute Granulocytes (1.4 - 6.5 /CUMM) 1.2 L Absolute Lymphocytes (1.2 - 3.4 /CUMM) 0.6 L Absolute Monocytes (0.10 - 0.60 /CUMM) 0.3 Absolute Eosinophils (0.0 - 0.7 /CUMM) 0.2 Absolute Basophils (0.0 - 0.2 /CUMM) 0 PUBS MCHC (33.0 - 37.0 G/DL) 33.6 Immunology ANCA Pending Complement C3 Pending Complement C4 Pending Miscellaneous Ref Lab Test Result Pending Serology Parvovirus Source Pending Parvovirus B19 DNA PCR Pending Recent Imaging Studies: MRI head/cervical 10/25/2016: Brain: There is no abnormal intracranial mass or enhancement. There are a few scattered nonspecific changes within the periventricular white matter that most likely represent a chronic manifestation of small vessel ischemia. No evidence of acute territorial infarct or hemorrhage. Cervical spine: There is multilevel degenerative spondylosis of the cervical spine with moderate canal stenosis at the levels of C3-C4 and C4-C5 and mild canal stenosis at C5- C6. There are varying degrees of neuroforaminal encroachment related to uncovertebral joint hypertrophy and facet degenerative change as described above. No cord compression or abnormal intramedullary signal changes. No abnormal soft tissue mass or enhancement. Assessment/Plan Assessment/Recommendations: Mr. Cat is a 55-year-old male with stage IIIB colon cancer status post resection and cycle 1 of FOLFOX who presents with fever, myalgia, and neutropenia. He has been febrile since 6 hours after day 1 infusion. His fever has been as high as 104F. He has chills and rigors with the fever. Fever profile seems to be better. He is off antibiotic for now. WBC improved today. Cultures are negative to date. Parvovirus PCR pending. Autoimmune evaluation is also pending. Viral syndrome is likely the etiology. It seems to be self resolving for now. Filgrastim is not needed at the moment. He is hemodynamically stable. Recommendations: 1. Follow up on cultures 2. Follow up on parvovirus evaluation (PCR) 3. Follow up ID recommendations 4. Follow up on autoimmune process work up with ANCA, KALE Please call [phone] with any questions or concerns. Problem List: 1. Fever 2. Neutropenia 3. Colon cancer
--- NOTE | 2016-10-26 09:37 | PN- Pulmonary ---
Subjective HPI/Critical Care Issues: He continues to feel unwell. Fever is better. He continues to have headaches and neck pain. Review of Systems Constitutional: Reports: chills, fever, weakness. Cardiovascular: Denies: chest pain. Respiratory: Denies: short of breath. Gastrointestinal: Denies: abdominal pain. Genitourinary: Denies: dysuria. Musculoskeletal: Denies: back pain. Neurological/Psychological: Denies: anxiety. Hematologic/Endocrine: Denies: bruising, bleeding. Immunologic/Allergic: Denies: lymphadenopathy. All Other Systems: Reviewed and Negative Objective Current Medications: Current Medications Sig/Dorita Start time Last Medication Dose Route Stop Time Status Admin Acetaminophen 650 MG .STK-MED ONE 10/26 0034 DC PO 10/26 0035 Acetaminophen 650 MG .STK-MED ONE 10/25 1202 DC PO 10/25 1203 Acetaminophen 650 MG Q6P PRN 10/22 2114 AC 10/26 PO 0043 Alprazolam 1 MG TID PRN 10/22 214 AC 10/26 PO 10/29 2144 0838 Enoxaparin Sodium 40 MG DAILY 10/22 210 AC 10/25 SC 1332 Hydromorphone HCl 1 MG Q6P PRN 10/22 211 AC 10/26 IV 0718 Nystatin 5 ML 4 TIMES/DAY 10/23 0500 AC 10/25 PO 2200 Ondansetron HCl 4 MG .STK-MED ONE 10/25 1949 DC IM 10/25 1950 Ondansetron HCl 4 MG Q4-6 PRN PRN 10/23 2030 AC 10/26 IV 0838 Oxycodone/ 1 TAB Q6P PRN 10/22 211 AC 10/26 Acetaminophen PO 0923 Sodium Chloride 1,000 ML Q13H 10/22 2130 AC 10/25 IV 1959 Trazodone HCl 100 MG 2200 10/22 220 AC 10/25 PO 2200 Vital Signs & I&O Last 24 Hrs of Vitals and I&O: Vital Signs Date Time Temp Pulse Resp B/P Pulse O2 O2 Flow FiO2 Ox Delivery Rate 10/26 610 98.0 86 20 129/85 95 Room Air 10/25 2202 98.5 89 20 104/60 96 Room Air 10/25 1422 97.5 86 20 134/80 94 Room Air Intake & Output 10/26 1600 10/26 0800 03 0000 Intake Total 1140 465 Output Total Balance 1140 465 Intake, IV 600 225 Intake, Oral 540 240 Patient 229 lb Weight Impression/Plan Impression/Plan Impression/Plan: He is awake and alert in no acute distress. MAXIMUM TEMPERATURE 104.5. Skin diaphoretic, with a macular rash on his back and a petechial appearing rash on both calves. HEENT exam is negative, with no evidence of thrush. Neck is supple with no adenopathy. Chest Port-A-Cath in the left upper chest with no inflammation at the site. Lungs are clear. Heart regular rhythm with no murmur. Abdomen is soft, nontender with positive bowel sounds. Back no CVA tenderness. Extremities no cyanosis, clubbing or edema. Neuro is without focality. CT neg for any abnormality MRI nil acute of the head and neck This is a 55-year-old very pleasant gentleman with a past medical history of cervical spondylosis, recently diagnosed adenocarcinoma in July with status post right hemicolectomy in August 2016, with Port-A-Cath placement and recently started on chemotherapy with oxaliplatin and fluorouracil (started about 8 days ago, with last session 5 days ago), presents for evaluation of fevers. Patient has had previous episodes of febrile illness of unknown etiology on and off. Previously he did have IgG positive for parvovirus. Patient does have leukopenia and recent chemotherapy puts him at a higher risk for infection. His chest x-ray appears to have pneumonia. Issues Fever in a pt with s/p chemo with leukopenia PRob viral COlon ca s/p surg and now on chemo, high risk for neutropenia stage 3b Previous lung nodules Previous cervical disc disease, with mild headache S/p portacath, no evidence suggestive of line sepsis REC Watch temp and if afebrile dc in am Await send out tests and can be followed as outpt Prn xanax NO nsaid
--- NOTE | 2016-10-26 10:59 | Patient Discharge Instructions ---
Discharge Instructions General Discharge Information You were seen/treated for: Fever likley viral in etiology Watch for these problems: Fever, nausea, vomiting, chills, weakness, increased generalized edema. Palpitations. Chest pain. Shortness of breath. If you have any adverse reactions from any of the medications prescribed please inform your primary care physician and you may be required to come back to the emergency department. Thank you for allowing us to be part of your care. Special Instructions: Please follow up with Dr Ahn in one week. Please inform your PCP about the medication changes we have made. Please follow up with the [employer] control and oncologist on 11/02/2016 Diet Continue normal diet: Yes Activity Activity Self Limited: Yes (As Tolerated) Acute Coronary Syndrome Inclusion Criteria At DC or during hospital stay patient has or had the following: ACS DIAGNOSIS No Discharge Core Measures Meds if any: Prescribed or Continued at Discharge Meds if any: NOT Prescribed or Continued at Discharge Congestive Heart Failure Inclusion Criteria At DC or during hospital stay patient has or had the following: CHF DIAGNOSIS No Discharge Core Measures Meds if any: Prescribed or Continued at Discharge Meds if any: NOT Prescribed or Continued at Discharge Cerebrovascular accident Inclusion Criteria At DC or during hospital stay patient has or had the following: CVA/TIA Diagnosis No Discharge Core Measures Meds if any: Prescribed or Continued at Discharge Meds if any: NOT Prescribed or Continued at Discharge Venous thromboembolism Inclusion Criteria VTE Diagnosis No VTE Type NONE VTE Confirmed by (Test) NONE Discharge Core Measures - Per Current guidelines, there needs to be overlap - treatment for the first 5 days of Warfarin therapy. - If discharged on Warfarin prior to 5 days of - overlap therapy, the patient will need to be - assessed for post discharge needs including - *Post discharge parental anticoagulation - *Warfarin and/or parental anticoagulation education - *Follow up date to check INR post discharge At least 5 days overlap therapy as Inpatient No Meds if any: Prescribed or Continued at Discharge Note: Overlap Therapy is Warfarin and Anticoagulant Meds if any: NOT Prescribed or Continued at Discharge
--- NOTE | 2016-10-26 11:38 | PN- Infect Dx ---
Subjective Subjective: Afebrile. He feels better with no specific complaints. Objective Last 24 Hrs of Vital Signs/I&O Vital Signs Date Time Temp Pulse Resp B/P Pulse O2 O2 Flow FiO2 Ox Delivery Rate 10/26 0611 98.0 86 20 129/85 95 Room Air 10/25 2202 98.5 89 20 104/60 96 Room Air 10/25 1422 97.5 86 20 134/80 94 Room Air Intake & Output 10/26 1600 10/26 0800 10/26 0000 Intake Total 1140 465 Output Total Balance 1140 465 Intake, IV 600 225 Intake, Oral 540 240 Patient 229 lb Weight Physical Exam Other Physical Findings: He appears more comfortable in no acute distress Skin no new rash The remainder of his exam is unchanged Results Last 24 Hours of Lab Results: Laboratory Tests 10/27 623 Chemistry Sodium (137 - 145 mmol/L) 135 L Potassium (3.5 - 5.1 mmol/L) 4.0 Chloride (98 - 107 mmol/L) 101 Carbon Dioxide (22 - 30 mmol/L) 29 Anion Gap (5 - 16) 5 BUN (9 - 20 mg/dL) 8 L Creatinine (0.7 - 1.2 mg/dL) 0.8 Estimated GFR (>60 ml/min) > 60 BUN/Creatinine Ratio (7 - 25 %) 10.0 Hematology CBC w Diff NO MAN DIFF REQ WBC (4.8 - 10.8 /CUMM) 2.3 L RBC (4.70 - 6.10 /CUMM) 3.75 L Hgb (14.0 - 18.0 G/DL) 10.5 L Hct (42 - 52 %) 31.2 L MCV (80.0 - 94.0 FL) 83.2 MCH (27.0 - 31.0 PG) 28.0 RDW (11.5 - 14.5 %) 14.2 Plt Count (130 - 400 /CUMM) 123 L MPV (7.4 - 10.4 FL) 7.5 Gran % (42.2 - 75.2 %) 52.8 Lymphocytes % (20.5 - 51.1 %) 24.8 Monocytes % (1.7 - 9.3 %) 13.5 H Eosinophils % (0 - 5 %) 8.7 H Basophils % (0.0 - 2.0 %) 0.2 Absolute Granulocytes (1.4 - 6.5 /CUMM) 1.2 L Absolute Lymphocytes (1.2 - 3.4 /CUMM) 0.6 L Absolute Monocytes (0.10 - 0.60 /CUMM) 0.3 Absolute Eosinophils (0.0 - 0.7 /CUMM) 0.2 Absolute Basophils (0.0 - 0.2 /CUMM) 0 PUBS MCHC (33.0 - 37.0 G/DL) 33.6 Last 24 Hours of Rayo Results: Blood cultures October 24 negative Blood cultures October 22 remain negative Assessment/Plan Impression: Improved with apparent defervescence with cultures remaining negative and with no obvious focus of infection. His white blood cell count is increasing, with over 1200 neutrophils, now 9 days status post completion of his 5-FU infusion. It is not clear if this current febrile episode is related to his previous febrile episodes, which have occurred intermittently over the past 9 years, and which have remained unexplained, or if it is secondary to his recent chemotherapy. Suggestion: 1. Further evaluation for an autoimmune disease/vasculitis per Medicine 2. Continue to follow off antibiotics
[2016-10-26 15:10] VITALS: BP 132/80
[2016-10-26 22:55] VITALS: BP 132/78
[2016-10-27 06:41] VITALS: BP 124/76
--- NOTE | 2016-10-27 07:56 | PN- Housestaff ---
DAR [facility]BA[facility] 10/27/16 0755: Subjective Follow-up For: FUO Subjective: Mr. Cat was seen and examined this morning. He is resting comfortably in bed. He denies any issues overnight. Patient states that he was able to rest. He denies any subjective fevers, chills, nausea, vomiting. He expresses his desire to be discharged as soon as possible. Review of Systems Constitutional: Denies: no symptoms. Objective Last 24 Hrs of Vital Signs/I&O Vital Signs Date Time Temp Pulse Resp B/P Pulse O2 O2 Flow FiO2 Ox Delivery Rate 10/27 0641 97.7 67 20 124/76 93 10/27 0509 99.2 10/27 0437 99.8 10/26 2255 98.8 84 18 132/78 94 Room Air Intake & Output 10/27 1600 10/27 0800 10/27 0000 Intake Total 500 Output Total Balance 500 Intake, Oral 500 Physical Exam General Appearance: Alert, Oriented X3, Cooperative Cardiovascular: Regular Rate, Normal S1, Normal S2 Lungs: Clear to Auscultation Abdomen: Normal Bowel Sounds, Soft, No Tenderness Neurological: Normal Gait, Normal Speech Extremities: No Clubbing, No Cyanosis, No Edema Current Medications: Current Medications Sig/Dorita Start time Last Medication Dose Route Stop Time Status Admin Acetaminophen 650 MG .STK-MED ONE 10/27 0402 DC PO 10/27 0403 Acetaminophen 650 MG .STK-MED ONE 10/27 0357 DC PO 10/27 0358 Acetaminophen 650 MG Q6P PRN 10/22 2114 DCD 10/27 PO 0400 Alprazolam 1 MG TID PRN 10/22 2145 DCD 10/27 PO 10/29 2144 0900 Enoxaparin Sodium 40 MG DAILY 10/22 2104 DCD 10/27 SC 0857 Hydromorphone HCl 1 MG Q6P PRN 10/22 2114 DCD 10/27 IV 0856 Nystatin 5 ML 4 TIMES/DAY 10/23 0500 DC 10/26 PO 2256 Ondansetron HCl 4 MG Q4-6 PRN PRN 10/23 2030 DCD 10/26 IV 0838 Oxycodone/ 1 TAB Q6P PRN 10/22 2114 DCD 10/26 Acetaminophen PO 1455 Trazodone HCl 100 MG 0 10/22 2199 DCD 10/26 PO 2256 Last 24 Hrs of Lab/Rayo Results Last 24 Hrs of Labs/Mics: Laboratory Tests 10/27/16 0624: Anion Gap 7, Estimated GFR > 60, BUN/Creatinine Ratio 11.1, CBC w Diff NO MAN DIFF REQ, RBC 3.77 L, MCV 83.8, MCH 28.0, RDW 14.2, MPV 7.9, Gran % 56.3, Lymphocytes % 19.1 L, Monocytes % 16.0 H, Eosinophils % 8.2 H, Basophils % 0.4, Absolute Granulocytes 1.5, Absolute Lymphocytes 0.5 L, Absolute Monocytes 0.4, Absolute Eosinophils 0.2, Absolute Basophils 0, PUBS MCHC 33.4 Assessment/Plan Assessment: This is a 55-year-old gentleman with past medical history of adenocarcinoma status post hemicolectomy recently started chemotherapy (last session 5 day ago) is presented to the emergency department with subjective fevers. At the time of admission the Patient's temperature was 101.4. He has been admitted to the General medicine floor for additional work up. #Elevated fevers likely caused by pneumonia. Patient is stable to be discharged and follow-up with primary care physician and travelers' aid worker and oncologist next week. Cath was clean dry and intact. Showed no evidence of potential side effects infection. Imaging studies CT of the abdomen, pelvis and chest have been ordered. Results of the imaging studies were inconclusive for any acute follow G and/or source of infection. Continue the patient on vancomycin 1500 mg every 12. Continue ceftazidime 2000 mg IV every 8. Continue azithromycin 500 mg daily IV. Recommendations from infectious diseases specialist recommends that above antibiotic should be discontinued and the patient should be monitored off antibiotics. Closely monitoring off abx. Blood cultures initial blood cultures are currently negative. Repeat blood cultures from 10/24/2016: pending Given the patient's history of previous parvovirus infection. repeat test, Pending results. And pneumonia cannot be excluded. Low respiratory cultures have been ordered. Strep pneumo and Legionella urinary antigen having ordered. #Leukopenia This is in the setting of recent commencement of chemotherapy, WBC: 2.6 Monitor CBC in AM. #Oral Negar Patient is immunocompromised in the setting of starting recent chemotherapy. Nystatin Swish and [place]. #History of anxiety Continue alprazolam #History of cervical spondylosis X-ray performed yesterday did not show any acute pathologies. MRI with and without gadolinium of the head and neck has been ordered done on 10/25/2016. Initial Physical Exam was WNL. Oxycodone and hydromorphone as needed for severe pain. #DVT Prophylaxis Lovenox and ALPS Problem List: 1. Upper respiratory disease 2. Neutropenia 3. Pneumonia 4. Colon cancer Pain Ratin Pain Location: NA Pain Goal: Remain pain free Pain Plan: NA Tomorrow's Labs & Rationales: JOSE RAE MD 10/27/16 1103: Objective Last 24 Hrs of Vital Signs/I&O Vital Signs Date Time Temp Pulse Resp B/P Pulse O2 O2 Flow FiO2 Ox Delivery Rate 10/27 0641 97.7 67 20 124/76 93 10/27 0509 99.2 10/27 0437 99.8 10/26 2255 98.8 84 18 132/78 94 Room Air 10/26 1510 98.4 85 20 132/80 95 Room Air Intake & Output 10/27 1600 10/27 0800 10/27 0000 Intake Total 500 Output Total Balance 500 Intake, Oral 500 Attending MD Review Statement Attending Statement Attending MD Statement: examined this patient, discuss w/resident/PA/FAMILY LIVING EDUCATOR, agreed w/resident/PA/FAMILY LIVING EDUCATOR, discussed with family, reviewed EMR data (avail), reviewed images, amended to note Attending Assessment/Plan: Mr. Cat was interviewed, examined, and his EHR reviewed. He offers no complaints today. His MAXIMUM TEMPERATURE was 99.8 at 1600 hrs. yesterday. His remaining vitals are stable. Chest is clear to auscultation. Cardiovascular exam reveals regular rate and rhythm without murmur. His abdomen is soft and nontender. His WBC is now 2600 with 135,000 platelets. Blood cultures remain negative. MRI of his head shows no acute process. Cervical spine shows mild to moderate spinal stenosis at multiple levels and also degenerative disease. At this time Mr. Cat is stable and may be discharged to home. His CMR has been reviewed and signed. He is to follow-up with Dr. Ahn next week.
[2016-10-27 09:04] LABS: ABSOLUTE BASOPHIL COUNT 0 /CUMM (0.0-0.2); ABSOLUTE EOSINOPHIL COUNT 0.2 /CUMM (0.0-0.7); ABSOLUTE GRANULOCYTE CT 1.5 /CUMM (1.4-6.5); ABSOLUTE LYMPH COUNT 0.5 /CUMM (1.2-3.4); ABSOLUTE MONOCYTE COUNT 0.4 /CUMM (0.10-0.60); BASOPHIL % 0.4 % (0.0-2.0); EOSINOPHIL % 8.2 % (0-5); GRANULOCYTE % 56.3 % (42.2-75.2); HEMATOCRIT 31.6 % (42-52); MEAN CORPUSCULAR HGB CONC 33.4 G/DL (33.0-37.0); MEAN CORPUSCULAR VOLUME 83.8 FL (80.0-94.0); MEAN PLATELET VOLUME 7.9 FL (7.4-10.4); PLATELET COUNT 135 /CUMM (130-400); RBC DISTRIBUTION WIDTH 14.2 % (11.5-14.5); RED BLOOD CELL CT 3.77 /CUMM (4.70-6.10); WHITE BLOOD CELL COUNT 2.6 /CUMM (4.8-10.8)
[2016-10-27] MEDS ORDERED: LOPERAMIDE2 M2 PO (11:10)
--- NOTE | 2016-11-22 13:58 | Discharge Summary ---
Visit Information Visit Dates Admission Date: 10/22/16 Discharge Date: 10/27/16 Hospital Course Course Attending Physician: AIDAN ROSADO MD Primary Care Physician: AIDAN ROSADO MD Hospital Course: This is a 55-year-old very pleasant gentleman with a past medical history of cervical spondylosis, recently diagnosed adenocarcinoma in July with status post right hemicolectomy in August 2016, with Port-A-Cath placement and recently started on chemotherapy with oxaliplatin and fluorouracil (started about 8 days ago, with last session 5 days ago), presents for evaluation of fevers. Patient has had previous episodes of febrile illness of unknown etiology on and off. Previously he did have IgG positive for parvovirus. Patient does have leukopenia and recent chemotherapy puts him at a higher risk for infection. His chest x-ray appears to have pneumonia. Issues Fever in a pt with s/p chemo with leukopenia PRob viral improved COlon ca s/p surg and now on chemo, high risk for neutropenia stage 3b Previous lung nodules to follow Previous cervical disc disease, with mild headache S/p portacath, no evidence suggestive of line sepsis REC Ok to dc all viral studies neg so far Will follow as out pt Allergies: Coded Allergies: Penicillins (Intermediate, HIVES, RASH 10/16/16) Disposition Summary Disposition Principal Diagnosis: FUO Additional Diagnosis: Viral infectin colon ca Lung nodules Head ache Cervical disc disease Discharge Disposition: home or self care Discharge Instructions General Discharge Information Code Status: Full Code Patient's Diet: as khadar Patient's Activity: as khadar Follow-Up Instructions/Appts: ONC, and myself Medications at Discharge Discharge Medications: Stop taking the following medications: Loperamide HCl (Loperamide) (Unknown Strength) CAPSULE ORAL THREE TIMES DAILY as needed for Diarrhea Qty = 60 Fluoxetine HCl (Fluoxetine HCl) (Unknown Strength) CAPSULE Qty = 30 Venlafaxine HCl (Venlafaxine HCl) (Unknown Strength) TABLET Qty = 60 Moxifloxacin HCl (Avelox) 400 MG TABLET ORAL DAILY Qty = 7 Continue taking these medications: Trazodone HCl (Trazodone HCl) 100 MG TABLET 1 Tablet ORAL TAKE AT BEDTIME Comments: Last Taken: 10/26/16 Time: 10:00 PM Alprazolam (Alprazolam) 1 MG TABLET 1 Tablet ORAL THREE TIMES DAILY as needed for ANXIETY Qty = 60 Comments: Last Taken: 3/11/17 Time: 9:00 AM Prochlorperazine Maleate (Prochlorperazine Maleate) 10 MG TABLET 1 Tablet ORAL EVERY SIX HOURS as needed for N/V Qty = 60 Comments: NOT GIVEN IN HOSPITAL Oxycodone HCl/Acetaminophen (Percocet 5-325 MG Tablet) 5 MG-325 MG TABLET 1 Tablet ORAL Q6H as needed for PAIN Qty = 10 Comments: Last Taken: 10/26/16 Time: 3:00 PM Loperamide HCl (Loperamide) 2 MG CAPSULE 1 Capsule ORAL EVERY SIX HOURS as needed for Diarrhea Comments: NOT GIVEN IN HOSPITAL Copies To: ASHLEE ALBA,AIDAN Man
== END 2016-10-27 11:40 | DRG 194 ==
LOC: ENRESERVDT → ENRESERVTM → ERH 18:06 → 2NB 20:09 → ERHI 20:09 → ENPENDDIS 20:09 → 2NB 21:59
PROVIDERS: Physician Assistant; Student in an Organized Health Care Education/Training Program; ADMIT Student in an Organized Health Care Education/Training Program
DX: J18.9 Pneumonia, unspecified organism (principal); C18.9 Malignant neoplasm of colon, unspecified; B37.0 Candidal stomatitis; M48.02 Spinal stenosis, cervical region; D72.819 Decreased white blood cell count, unspecified; F41.9 Anxiety disorder, unspecified; M47.892 Other spondylosis, cervical region
CPT/HCPCS: 70552; 72142; 86021; 86157; 86160; 86317; 87798; 36415; 70360; 70553; 72156; 74177; 81001; 82436; 87040; 87070; 87086; 87449; 87450; 87799; 87804; 87804-59; 96374; A9579; J0131; J0456; J0696; J0713; J0780; J1650; J1885; J2405; J3370; J7060

== ENCOUNTER → 2017-12-13 | Day surgery (SDC) | payer OTHER ==
[~2017-12-13] VITALS: Ht 180.3 cm; Wt 106.6 kg
--- NOTE | 2017-12-13 12:58 | Operative Report ---
Operative/Inv Procedure Report Surgery Date: 12/13/17 Name of Procedure: Removal of left subclavian Port-A-Cath Pre-Operative Diagnosis: History of stage III colon cancer Post-Operative Diagnosis: History of stage III colon cancer Estimated Blood Loss: scant Surgeon/Master Ship: Tyler Romero Jr., DO Anesthesia: local monitored anesthesi, block Monitors: Per routine Drains: None Specimens: Portacatheter for gross inspection only Complications: None Condition: Good Operative Indication: This is a 57-year-old gentleman status post completion of treatment for a stage III colon cancer. He appears to have no active disease presents today for removal was Port-A-Cath Operative/Procedure Note Note: Patient was taken into the OR. He was placed in the supine position with left arm tucked. He received IV sedation and once he was comfortable the left chest and neck were prepped and draped in usual fashion. A block was performed using 1% lidocaine with epinephrine and a total of 10 mL was injected. I made my incision at the old scar. Dissected the tissues in the subcutaneous space until I encountered the capsule of the port. The port was incised and the port was pulled out of position. As the catheter portion of the port was pulled out I placed pressure over the subclavian vein. I held pressure for approximately 5 minutes. Next the incision was inspected for hemostasis. Hemostasis was excellent. I irrigated the field with sterile saline and then closed the incision 2 layers. The deep dermal layer was closed with interrupted 2-0 Vicryl. The skin was then closed with subcutaneous running 4-0 Monocryl. Mastisol Steri -Strips were placed over the incision. This skin was then cleansed and dried. A sterile occlusive dressing was then applied. The patient tolerated the procedure well. He was taken the recovery area in good condition. And at the end of the operational needle sponges and instruments were accounted for. Discharge Disposition: PACU CC: Jess Jones MD,Maximiliano May
== END ==
LOC: STS 02:15
DX: Z85.038 Personal history of other malignant neoplasm of large intestine (principal)
CPT/HCPCS: J2250